=== PATIENT | female | born 1980 | race Caucasian/White ===

== ENCOUNTER 2017-03-03 01:33 | Emergency (ER) | payer OTHER ==
[2017-03-03 01:42] VITALS: RESP 18; TEMP 98
[2017-03-03] MEDS ORDERED: ONDANSETRON ODT 4 MG TAB PO STA (02:17)
[2017-03-03] MEDS ORDERED: ACETAMINOPHEN TAB 325 MG TAB PO STA (02:17)
--- NOTE | 2017-03-03 02:51 | CT ---
EXAM: CT Head Without Intravenous Contrast. CLINICAL HISTORY: Pain TECHNIQUE: Axial computed tomography images of the head/brain without intravenous contrast. CTDI is 57.4 mGy and DLP is 9 x 5.5 mGy-cm This CT exam was performed using one or more of the following dose reduction techniques: automated exposure control, adjustment of the mA and/or kV according to patient size, and/or use of iterative reconstruction technique. COMPARISON: Head CT dated 02/09/2016 FINDINGS: Brain: No acute infarct, hemorrhage, mass or edema. No significant white matter disease. Ventricles: Unremarkable. No ventriculomegaly. Bones/joints: Unremarkable. No acute fracture. Soft tissues: Unremarkable. Sinuses: Minimal mucosal thickening of the paranasal sinuses. Mastoid air cells: Unremarkable as visualized. No mastoid effusion. IMPRESSION: No acute findings. EXAM: CT Cervical Spine Without Intravenous Contrast. CLINICAL HISTORY: Pain TECHNIQUE: Axial computed tomography images of the cervical spine without intravenous contrast. CTDI is 29.5 mGy and DLP is 579.9 mGy-cm This CT exam was performed using one or more of the following dose reduction techniques: automated exposure control, adjustment of the mA and/or kV according to patient size, and/or use of iterative reconstruction technique. COMPARISON: No relevant prior studies available. FINDINGS: Vertebrae: Unremarkable. No acute fracture. Discs/spinal canal/neural foramina: No acute findings. No spinal canal stenosis. Soft tissues: Unremarkable. Lung apices: Unremarkable as visualized. IMPRESSION: Normal cervical spine CT.
--- NOTE | 2017-03-03 03:06 | CT ---
EXAM: CT Maxillofacial Without Intravenous Contrast. CLINICAL HISTORY: Pain TECHNIQUE: Axial computed tomography images of the face without intravenous contrast. CTDI is 32.1 mGy and DLP is 558 mGy-cm This CT exam was performed using one or more of the following dose reduction techniques: automated exposure control, adjustment of the mA and/or kV according to patient size, and/or use of iterative reconstruction technique. COMPARISON: No relevant prior studies available. FINDINGS: Bones/joints: No acute fracture. Soft tissues: Unremarkable. Orbits: Unremarkable. Sinuses: Mild mucosal thickening of the paranasal sinuses. No air- fluid levels. Dental: Edentulous. IMPRESSION: No acute findings.
--- NOTE | 2017-03-03 03:21 | ED ---
Head Injury HPI - General Chief complaint: Head Injury Stated complaint: fall-face injury Time Seen by Provider: 03/03/17 01:52 Source: patient, RN notes reviewed Mode of arrival: wheelchair Limitations: no limitations - History of Present Illness Initial comments: Patient is a 36-year-old female presents to the emergency room for evaluation of head injury. Patient states about an hour before arrival, she slipped on mud and hit the right side of her face against the corner of her garage. Patient states afterwards she was dizzy and fell down on the ground and hit the right side of her face again on the floor. Patient denies loss of consciousness. Patient denies any changes in vision. Patient states she is having right-sided facial pain that is radiating to her ear. Patient denies ringing in her ears. Patient denies numbness or tingling going down her extremities. Patient denies significant neck pain. Patient states she is still dizzy and feels nauseous. Patient denies any other injuries during incident. Patient denies taking blood thinners. - Related Data Home Medications Medication Instructions Recorded Confirmed Levothyroxine Sodium [Synthroid] 300 mcg PO DAILY 09/23/14 03/03/17 OXcarbazepine [Trileptal] 600 mg PO BID 01/08/15 03/03/17 Ibuprofen [Motrin] 800 mg PO Q8HR PRN 05/02/16 03/03/17 OXcarbazepine [Trileptal] 300 mg PO BID 05/02/16 03/03/17 lamoTRIgine [LaMICtal] 200 mg PO HS 05/02/16 03/03/17 ARIPiprazole [Abilify] 5 mg PO DAILY 03/03/17 03/03/17 Ferrous Sulfate [Feosol] 325 mg PO BID 03/03/17 03/03/17 Previous Rx's Medication Instructions Recorded Gabapentin [Neurontin] 800 mg PO TID #90 tablet 06/19/15 Sertraline [Zoloft] 100 mg PO BID tab 02/10/16 Ondansetron Odt [Zofran Odt] 4 mg PO Q8HR PRN #12 tab 03/03/17 Allergies/Adverse reactions: Allergies Allergy/AdvReac Type Severity Reaction Status Date / Time ciprofloxacin [From Cipro] Allergy Unknown Rash/Hives Verified 03/03/17 01:42 ciprofloxacin HCl Allergy Unknown Rash/Hives Verified 03/03/17 01:42 [From Cipro] morphine Allergy Unknown Anaphylaxis Verified 03/03/17 01:42 nitrofurantoin Allergy Unknown Rash/Hives Verified 03/03/17 01:42 [From Macrobid] nitrofurantoin Allergy Unknown Rash/Hives Verified 03/03/17 01:42 macrocrystalline [From Macrobid] sulfamethoxazole Allergy Unknown Rash/Hives Verified 03/03/17 01:42 [From Bactrim] trimethoprim [From Bactrim] Allergy Unknown Rash/Hives Verified 03/03/17 01:42 adhesive Allergy Rash/Hives Verified 03/03/17 01:42 adhesive tape Allergy Rash/Hives Verified 03/03/17 01:42 PAPER TAPE Allergy PEELS Uncoded 03/03/17 01:42 SKIN,RASH STERI STRIPS Allergy RASH, Uncoded 03/03/17 01:42 PEELS SKIN Review of Systems ROS Statement: Those systems with pertinent positive or pertinent negative responses have been documented in the HPI. ROS Other: All systems not noted in ROS Statement are negative. Past Medical History Past Medical History: Fibromyalgia, Osteoarthritis (OA), Seizure Disorder, Thyroid Disorder Additional Past Medical History / Comment(s): Seizures, DDD lumbar, heniated discs lumbar and cervical, fibromyalgia, IBS, hypothryoidism, migraines, Fx knee 09/2015-healed with brace, L foot fractured a total of 5 times-had surgery with screws placed. 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 Past Anesthesia/Blood Transfusion Reactions: No Reported Reaction Past Psychological History: Bipolar Additional Psychological History / Comment(s): Pt states she is on medications that work well for her hx of bipolar. She resides with her 2 daughters ages 2 and 15. She is independent. She drives. Smoking Status: Current every day smoker Past Alcohol Use History: None Reported Additional Past Alcohol Use History / Comment(s): SMOKES 3-4 CIGARETTES PER DAY. STARTED SMOKING 2005 Past Drug Use History: None Reported - Past Family History Father Additional Family Medical History / Comment(s): Father is about 53 yrs old and has back problems. Mother Family Medical History: Diabetes Mellitus Additional Family Medical History / Comment(s): Mother is about 53 yrs old General Exam - General Exam Comments Initial Comments: Sitting in exam room, no acute distress. Limitations: no limitations General appearance: alert, in no apparent distress Head exam: Present: atraumatic, normocephalic, normal inspection Eye exam: Present: normal appearance, PERRL, EOMI, other (Tenderness on palpating the right inferior orbit. No swelling or ecchymosis noted.) Pupils: Present: normal accommodation ENT exam: Present: normal exam, mucous membranes moist, TM's normal bilaterally Neck exam: Present: normal inspection, full ROM. Absent: tenderness, lymphadenopathy Respiratory exam: Present: normal lung sounds bilaterally. Absent: respiratory distress Cardiovascular Exam: Present: regular rate, normal rhythm, normal heart sounds Extremities exam: Present: normal inspection Back exam: Present: normal inspection Neurological exam: Present: alert, oriented X3, CN II-XII intact, normal gait Expanded Patient oriented to: Present: person, place, time Speech: Present: fluid speech Cranial nerves: EOM's Intact: Normal, Facial Sensation: Normal Sensory exam: Upper Extremity Light Touch: Normal, Lower Extremity Light Touch: Normal Motor strength exam: RUE: 5, LUE: 5, RLE: 5, LLE: 5 Psychiatric exam: Present: normal affect, normal mood Skin exam: Present: warm, dry, intact, normal color. Absent: rash Course Vital Signs 03/03/17 01:39 Temperature 98.0 F Pulse Rate 85 Respiratory 18 Rate Blood Pressure 128/82 O2 Sat by Pulse 99 Oximetry Medical Decision Making - Medical Decision Making Patient is a 36-year-old female presents emergency room for evaluation of head and facial trauma. Patient has no neuro deficits. Brain and C-spine CT shows no acute findings. Facial CT shows no acute fractures. Patient states she is feeling better after given Zofran. Advised patient to take Tylenol or Motrin as needed for headache at home. Advised patient to follow up with primary care provider in 24-48 hours for reevaluation. Patient's friend states he is going to stay with patient overnight. Patient states she understands everything that was discussed with her. Return parameters discussed. Case discussed with Dr. Constantino. - Radiology Data Radiology results: report reviewed, image reviewed Disposition Clinical Impression: Closed head injury Disposition: HOME SELF-CARE Condition: Good Instructions: Head Injury (ED) Additional Instructions: Take Zofran as needed for nausea. Take Tylenol or Motrin as needed for headache. Please follow-up with primary care provider in 24-48 hours for reevaluation. If any new symptom arises or symptoms worsen, return to ER as soon as possible. Prescriptions: Ondansetron Odt [Zofran Odt] 4 mg PO Q8HR PRN #12 tab PRN Reason: Nausea Referrals: Jason Marrufo DO [Primary Care Provider] - 1-2 days Time of Disposition: 03:19
[2017-03-03 04:26] VITALS: BP 121/73; PULSE 78
== END 2017-03-03 03:28 | disposition home or self-care (01) ==
LOC: EC 01:33
DX: S09.90XA Unspecified injury of head, initial encounter (principal); R11.0 Nausea; H92.09 Otalgia, unspecified ear; E07.9 Disorder of thyroid, unspecified; G40.909 Epilepsy, unspecified, not intractable, without status epilepticus; F31.9 Bipolar disorder, unspecified; F17.210 Nicotine dependence, cigarettes, uncomplicated; Z79.899 Other long term (current) drug therapy; Z88.1 Allergy status to other antibiotic agents; Z88.5 Allergy status to narcotic agent; Z88.8 Allergy status to other drugs, medicaments and biological substances; Z91.09 Other allergy status, other than to drugs and biological substances; W01.198A Fall on same level from slipping, tripping and stumbling with subsequent striking against other object, initial encounter; Y92.89 Other specified places as the place of occurrence of the external cause
CPT/HCPCS: 70450; 70486; 72125; 99283

== ENCOUNTER 2017-03-27 20:31 | Observation (INO) | payer OTHER ==
[2017-03-27] MEDS ORDERED: SODIUM CHLORIDE 0.9% 1,000 ML IV STA (21:07)
[2017-03-27 21:30] LABS: Basophils # (A) 0.1 k/uL (0-0.2); Basophils % (A) 1 %; CH 32.6; Eosinophils # (A) 0.1 k/uL (0-0.7); Eosinophils % (A) 3 %; HCT 44.6 % (34.0-46.0); HDW 2.25; HGB 14.4 gm/dL (11.4-16.0); Luc % (Auto) 2; Lymphocytes # (A) 1.8 k/uL (1.0-4.8); Lymphocytes % (A) 38 %; MCHC 32.2 g/dL (31.0-37.0); MCV 99.4 fL (80.0-100.0); Mean Platelet Volume 9.7; Monocytes # (A) 0.2 k/uL (0-1.0); Monocytes % (A) 4 %; Neutrophils # (A) 2.5 k/uL (1.3-7.7); Neutrophils % (A) 53 %; RBC 4.49 m/uL (3.80-5.40); RDW 13.8 % (11.5-15.5); WBC 4.7 k/uL (3.8-10.6); WBC (Perox) 4.92
--- NOTE | 2017-03-27 21:33 | ED ---
Seizure HPI - General Chief Complaint: Seizure Stated Complaint: seizure x 3 today Time Seen by Provider: 03/27/17 20:42 Source: patient, RN notes reviewed, old records reviewed Mode of arrival: wheelchair Limitations: no limitations - History of Present Illness Initial Comments: This is a 36-year-old female with a history of seizure stating that she's had approximately 7 seizures in the past 2 days. She states that she is currently managed on Trileptal and Lamictal. Patient reports that she takes her medication regularly. She gets these medications from her primary care provider. She does not see a neurologist at this time. Patient states that each seizure lasted approximately 1-3 minutes. While in the waiting room patient had a possible seizure and was brought back to treatment room and once. Patient does not appear postictal at this time. Patient reports that over the past few days she's had a viral upper respiratory syndrome. She denies any other associated symptoms like chest pain shortness breath, nausea or vomiting or abdominal pain. - Related Data Home Medications Medication Instructions Recorded Confirmed Levothyroxine Sodium [Synthroid] 300 mcg PO DAILY 09/23/14 03/27/17 Ibuprofen [Motrin] 800 mg PO Q8HR PRN 05/02/16 03/27/17 OXcarbazepine [Trileptal] 900 mg PO BID 05/02/16 03/27/17 Ferrous Sulfate [Feosol] 325 mg PO BID 03/03/17 03/27/17 ARIPiprazole [Abilify] 5 mg PO HS 03/27/17 03/27/17 HYDROcodone/APAP 10-325MG [[place] 1 tab PO Q6H PRN 03/27/17 03/27/17 10-325] lamoTRIgine [LaMICtal] 200 mg PO HS 03/27/17 03/27/17 Previous Rx's Medication Instructions Recorded Gabapentin [Neurontin] 800 mg PO TID #90 tablet 06/19/15 Sertraline [Zoloft] 100 mg PO BID tab 02/10/16 Allergies Allergy/AdvReac Type Severity Reaction Status Date / Time ciprofloxacin [From Cipro] Allergy Unknown Rash/Hives Verified 03/27/17 22:17 morphine Allergy Unknown Anaphylaxis Verified 03/27/17 22:17 nitrofurantoin Allergy Unknown Rash/Hives Verified 03/27/17 22:17 [From Macrobid] nitrofurantoin Allergy Unknown Rash/Hives Verified 03/27/17 22:17 macrocrystalline [From Macrobid] sulfamethoxazole Allergy Unknown Rash/Hives Verified 03/27/17 22:17 [From Bactrim] trimethoprim [From Bactrim] Allergy Unknown Rash/Hives Verified 03/27/17 22:17 adhesive tape Allergy Rash/Hives Verified 03/27/17 22:17 PAPER TAPE Allergy PEELS Uncoded 03/27/17 20:39 SKIN,RASH STERI STRIPS Allergy RASH, Uncoded 03/27/17 20:39 PEELS SKIN Review of Systems ROS Statement: Those systems with pertinent positive or pertinent negative responses have been documented in the HPI. ROS Other: All systems not noted in ROS Statement are negative. Past Medical History Past Medical History: Fibromyalgia, Osteoarthritis (OA), Seizure Disorder, Thyroid Disorder Additional Past Medical History / Comment(s): Seizures, DDD lumbar, heniated discs lumbar and cervical, fibromyalgia, IBS, hypothryoidism, migraines, Fx knee 09/2015-healed with brace, L foot fractured a total of 5 times-had surgery with screws placed. 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 Past Anesthesia/Blood Transfusion Reactions: No Reported Reaction Past Psychological History: Bipolar Additional Psychological History / Comment(s): Pt states she is on medications that work well for her hx of bipolar. She resides with her 2 daughters ages 2 and 15. She is independent. She drives. Smoking Status: Current every day smoker Past Alcohol Use History: None Reported Additional Past Alcohol Use History / Comment(s): SMOKES 3-4 CIGARETTES PER DAY. STARTED SMOKING 2005 Past Drug Use History: None Reported - Past Family History Father Additional Family Medical History / Comment(s): Father is about 53 yrs old and has back problems. Mother Family Medical History: Diabetes Mellitus Additional Family Medical History / Comment(s): Mother is about 53 yrs old General Exam - General Exam Comments Initial Comments: This is a pleasant 36-year-old female. Patient does not appear to be in any significant distress. Patient does not appear postictal. Limitations: no limitations General appearance: alert, in no apparent distress Head exam: Present: atraumatic, normocephalic, normal inspection Eye exam: Present: normal appearance, PERRL, EOMI. Absent: scleral icterus, conjunctival injection, periorbital swelling ENT exam: Present: normal exam, mucous membranes moist Neck exam: Present: normal inspection. Absent: tenderness, meningismus, lymphadenopathy Respiratory exam: Present: normal lung sounds bilaterally. Absent: respiratory distress, wheezes, rales, rhonchi, stridor Cardiovascular Exam: Present: regular rate, normal rhythm, normal heart sounds. Absent: systolic murmur, diastolic murmur, rubs, gallop, clicks GI/Abdominal exam: Present: soft, normal bowel sounds. Absent: distended, tenderness, guarding, rebound, rigid Extremities exam: Present: normal inspection, full ROM, normal capillary refill. Absent: tenderness, pedal edema, joint swelling, calf tenderness Back exam: Present: normal inspection Neurological exam: Present: alert, oriented X3, CN II-XII intact Expanded Patient oriented to: Present: person, place Speech: Present: fluid speech Cranial nerves: EOM's Intact: Normal, Gag Reflex: Normal, Tongue Deviation: Normal Cerebellar function: Finger to Nose: Normal Upper motor neuron: Pronator Drift: Normal Motor strength exam: RUE: 5, LUE: 5, RLE: 5, LLE: 5 Eye Response: (4) open spontaneously Motor Response: (6) obeys commands Verbal Response: (5) oriented Tanvi Total: 15 Psychiatric exam: Present: normal affect, normal mood Skin exam: Present: warm, dry, intact, normal color. Absent: rash Course Vital Signs 03/27/17 03/27/17 03/28/17 20:36 22:55 00:26 Temperature 98.1 F 98.7 F 98.0 F Pulse Rate 74 65 88 Respiratory 18 16 18 Rate Blood Pressure 128/76 99/65 100/69 O2 Sat by Pulse 100 98 98 Oximetry Medical Decision Making - Medical Decision Making This is a 36-year-old female with a history of seizure stating that she's had approximately 7 seizures in the past 2 days. She states that she is currently managed on Trileptal and Lamictal. Patient reports that she takes her medication regularly. She gets these medications from her primary care provider. She does not see a neurologist at this time. Patient states that each seizure lasted approximately 1-3 minutes. While in the waiting room patient had a possible seizure and was brought back to treatment room and once. Patient does not appear postictal at this time. Patient reports that over the past few days she's had a viral upper respiratory syndrome. Lsb work reviewed, no abnormalities. CT brain and CXR are negatve. EKG was normal. Discussed results with patient and family. Patient concerned with possibly having another seizure. Discussed that she can be admitted for observation status and seizure precautions and consult neurology. Jono agrees to treatement plan and admission. - Lab Data Result diagrams: 03/27/17 20:47 03/27/17 20:47 Lab Results 03/27/17 03/27/17 Range/Units 20:47 20:47 WBC 4.7 (3.8-10.6) k/uL RBC 4.49 (3.80-5.40) m/uL Hgb 14.4 (11.4-16.0) gm/dL Hct 44.6 (34.0-46.0) % MCV 99.4 (80.0-100.0) fL MCH 32.0 (25.0-35.0) pg MCHC 32.2 (31.0-37.0) g/dL RDW 13.8 (11.5-15.5) % Plt Count 128 L (150-450) k/uL Neutrophils % 53 % Lymphocytes % 38 % Monocytes % 4 % Eosinophils % 3 % Basophils % 1 % Neutrophils # 2.5 (1.3-7.7) k/uL Lymphocytes # 1.8 (1.0-4.8) k/uL Monocytes # 0.2 (0-1.0) k/uL Eosinophils # 0.1 (0-0.7) k/uL Basophils # 0.1 (0-0.2) k/uL Sodium 131 L (137-145) mmol/L Potassium 3.4 L (3.5-5.1) mmol/L Chloride 98 (98-107) mmol/L Carbon Dioxide 23 (22-30) mmol/L Anion Gap 10 mmol/L BUN 7 (7-17) mg/dL Creatinine 0.56 (0.52-1.04) mg/dL Est GFR (MDRD) Af Amer >60 (>60 ml/min/1.73 sqM) Est GFR (MDRD) Non-Af >60 (>60 ml/min/1.73 sqM) Glucose 136 H (74-99) mg/dL Calcium 8.9 (8.4-10.2) mg/dL Total Bilirubin 0.5 (0.2-1.3) mg/dL AST 27 (14-36) U/L ALT 27 (9-52) U/L Alkaline Phosphatase 74 (38-126) U/L Total Protein 6.6 (6.3-8.2) g/dL Albumin 3.9 (3.5-5.0) g/dL Serum Alcohol <10 mg/dL 03/27/17 23:08 EKG normal sinus rhythm. EKG suggested on this specific T wave abnormality. Ventricularly of 84 bpm. : Preform ulcers. Care is duration 903 QT QTC 360/47 ms. No evidence of ST elevation or T-wave inversion. - Radiology Data Radiology results: report reviewed CT brain is negative for any acute process. CXR negative. Disposition Clinical Impression: Seizure, Recurrent seizures Disposition: ADMITTED IP TO THIS [facility] Condition: Stable
[2017-03-27 21:40] LABS: ALT 27 U/L (9-52); AST 27 U/L (14-36); Alcohol <10 mg/dL; Alkaline Phosphatase 74 U/L (38-126); Anion Gap 10 mmol/L; Blood Urea Nitrogen 7 mg/dL (7-17); Calcium 8.9 mg/dL (8.4-10.2); Carbon Dioxide 23 mmol/L (22-30); Chloride 98 mmol/L (98-107); Glucose 136 mg/dL (74-99); Non-African American GFR(MDRD) >60 (>60 ml/min/1.73 sqM); Potassium 3.4 mmol/L (3.5-5.1); Sodium 131 mmol/L (137-145); Total Bilirubin 0.5 mg/dL (0.2-1.3); Total Protein 6.6 g/dL (6.3-8.2)
--- NOTE | 2017-03-27 22:56 | CT ---
EXAM: CT Head Without Intravenous Contrast CLINICAL HISTORY: Reason: seizure activity TECHNIQUE: Axial computed tomography images of the head/brain without intravenous contrast. Coronal and sagittal reformats were obtained. CTDI is 60.30 MGy and DLP is 1090.40 MGy-cm. This CT exam was performed using one or more of the following dose reduction techniques: automated exposure control, adjustment of the mA and/or kV according to patient size, and/or use of iterative reconstruction technique. COMPARISON: CT head 03/03/17 images without report FINDINGS: Brain: Unremarkable. No hemorrhage. No edema. Ventricles: Unremarkable. No ventriculomegaly. Bones/joints: Unremarkable. No acute fracture. Sinuses: Unremarkable as visualized. No acute sinusitis. Mastoid air cells: Unremarkable as visualized. No mastoid effusion. IMPRESSION: No acute intracranial process.
[2017-03-27] MEDS ORDERED: HYDROcodone/APAP 5-325MG 1 EACH TAB PO PRN (23:17)
[2017-03-27] MEDS ORDERED: ONDANSETRON 4 MG/2 ML VIAL IVP PRN (23:17)
[2017-03-27] MEDS ORDERED: NALOXONE 0.4 MG/ML 1 ML VIAL IV PRN (23:17)
[2017-03-27] MEDS ORDERED: IBUPROFEN 800 MG TAB PO PRN (23:21)
[2017-03-28 00:59] VITALS: BMI 39.4
[2017-03-28] MEDS: ARIPiprazole 5 MG TAB PO SCH ×2 (01:28→21:30)
[2017-03-28] MEDS: OXcarbazepine 300 MG TAB PO SCH ×3 (01:29→21:30)
[2017-03-28] MEDS: SERTRALINE 100 MG TAB PO SCH ×3 (01:29→21:29)
[2017-03-28] MEDS: SODIUM CHLORIDE 0.9% 1,000 ML IV SCH ×2 (01:29→13:02)
[2017-03-28 01:49] LABS: Appearance,Urine Clear (Clear); Bilirubin,Urine Negative (Negative); Glucose,Urine (UA) Negative (Negative); Ketones,Urine Negative (Negative); Leukocyte Esterase,Urine Negative (Negative); Nitrite,Urine Negative (Negative); Protein,Urine Negative (Negative); Specific Gravity,Urine 1.007 (1.001-1.035); UA Billing (MACRO vs. MICRO) CHEM; Urobilinogen,Urine <2.0 mg/dL (<2.0)
[2017-03-28] MEDS: LORazepam 0.5 MG TAB PO PRN ×3 (02:27→18:44)
[2017-03-28] MEDS ORDERED: LORazepam 2 MG/ML SYRINGE IV PRN (02:41)
[2017-03-28] MEDS: LEVOTHYROXINE 100 MCG TAB PO SCH (05:47)
[2017-03-28] MEDS: lamoTRIgine 25 MG TAB PO SCH ×2 (08:22→08:24)
[2017-03-28] MEDS: GABAPENTIN 400 MG CAP PO SCH ×3 (08:22→21:29)
[2017-03-28] MEDS: FERROUS SULFATE 325 MG TAB PO SCH ×2 (08:22→21:30)
[2017-03-28] MEDS: HYDROcodone/APAP 10-325MG 1 EACH TAB PO PRN ×3 (08:23→21:30)
[2017-03-28] MEDS ORDERED: SERTRALINE 100 MG TAB PO SCH (09:00)
[2017-03-28] MEDS ORDERED: PANTOPRAZOLE 40 MG/10 ML VIAL IV SCH (09:00)
[2017-03-28] MEDS ORDERED: OXcarbazepine 300 MG TAB PO SCH (09:00)
[2017-03-28] MEDS ORDERED: METOCLOPRAMIDE 5 MG/ML 2 ML VIAL IVP PRN (12:45)
[2017-03-28] MEDS: NICOTINE 21MG/24HR PATCH TRANSDERM SCH (13:02)
--- NOTE | 2017-03-28 13:34 | HP ---
DATE OF ADMISSION: DATE OF SERVICE: 03/28/2017 CHIEF COMPLAINT: Seizure disorder, generalized tonic clonic. HISTORY OF PRESENT ILLNESS: This 36-year-old woman with past medical history of epilepsy, history of fibromyalgia, history of DJD, history of hypothyroidism, history of irritable bowel syndrome, hypothyroidism, bariatric surgery being followed Dr. Marrufo in the outpatient setting. Also had breakthrough seizures previously. Yesterday, the patient approximately 7 seizures in the last couple of days and generalized tonic-clonic seizure. Currently, the patient is on Trileptal and Lamictal and because of increase in seizures the patient came to [facility] and admitted for further evaluation and treatment. There is no history of any fever, rigors. No history headache, loss of consciousness. PAST MEDICAL HISTORY: History of fibromyalgia, DJD, seizure disorder, hypothyroidism, bariatric surgery. Home medications are: 1. Lamictal 200 mg p.o. q.h.s. 2. Zoloft 100 mg p.o. b.i.d. 3. Trileptal 900 mg p.o. b.i.d. 4. Synthroid 300 mcg p.o. daily. 5. Motrin 800 mg q.8 p.r.n. 6. [place] 10 mg q.6 p.r.n. 7. Neurontin 800 mg t.i.d. 8. Iron sulfate 325 mg p.o. b.i.d. 9. Abilify 5 mg p.o. q.h.s. Allergies are CIPRO, MORPHINE, NITROFURANTOIN, BACTRIM, ADHESIVE TAPES, PAPER TAPE and STERI-STRIPS. FAMILY HISTORY: History of diabetes mellitus in the family. SOCIAL HISTORY: History of smoking on a regular basis. REVIEW OF SYSTEMS: ENT: No diminished hearing or diminished vision. CARDIOVASCULAR: No angina or palpitations. RESPIRATORY: No cough, no hemoptysis. GI: No nausea, vomiting. : No dysuria. NERVOUS SYSTEM: As mentioned earlier. ALLERGY/IMMUNOLOGY: No asthma or hayfever. MUSCULOSKELETAL: As mentioned earlier. HEMATOLOGY/ONCOLOGY: No history of anemia. ENDOCRINE: No history of diabetes mellitus. CONSTITUTIONAL: As mentioned earlier. DERMATOLOGY: Negative. RHEUMATOLOGY: Negative. PSYCHIATRY: As mentioned earlier. The patient also reports multiple social stressors also. PHYSICAL EXAM: The patient is alert and oriented x3. Pulse is 96, blood pressure 101/59, respirations 16, temperature 98.2, pulse ox 98% on room air. HEENT: Conjunctivae normal. NECK: No jugular venous distention. CARDIOVASCULAR: S1 and S2, muffled. RESPIRATORY: Breath sounds diminished at the bases. No rhonchi, no crackles. ABDOMEN: Soft, nontender. No mass palpable. No hepatosplenomegaly. LEGS: No edema, no swelling. NERVOUS SYSTEM: Higher function as mentioned earlier. Cranial nerves are grossly intact. Eye movements are normal. No nystagmus. No diplopia. Moves all 4 limbs. No focal motor or sensory deficits. No ( ) dysfunction. LYMPHATICS: No lymphadenopathy of neck, axillae or groin. SKIN: No ulcers, rashes or bleeding. LABS: Platelets 128. Sodium 131, potassium 3.4. Glucose 136. Drug screen is positive for opiate and oxycodone. ASSESSMENT: 1. Generalized tonic-clonic seizures, breakthrough seizures. 2. Hyponatremia. 3. Hypokalemia. 4. Increased random blood sugar. 5. Thrombocytopenia of undetermined etiology. 6. Fibromyalgia. 7. History of degenerative joint disease. 8. History of hypothyroidism. 9. History of irritable bowel syndrome. 10. History of migraines. 11. History of bariatric surgery. 12. History of cholecystectomy. 13. History of bipolar. 14. History of ongoing nicotine dependence. RECOMMENDATIONS AND DISCUSSION: This 36-year-old woman who presented with multiple complex medical issues, will monitor the patient closely. Continue the current medications. Continue with symptomatic treatment. Brain CAT scan was done at time of admission, which showed no acute abnormality. Currently the patient is started on Lamictal and Neurontin and as well as Trileptal. We will follow the patient closely. Neuro check. Complete neurovascular workup and evaluation by Dr. Olson, EEG. Continue the rest of the medications. Repeat labs. Guarded prognosis because of multiple complex medical issues. Further recommendations to follow. A copy of dictation forwarded to Dr. Jason Marrufo who is the primary physician. [facility] CENTERLindsey
[2017-03-28 15:47] LABS: Anion Gap 9 mmol/L; Blood Urea Nitrogen 7 mg/dL (7-17); Calcium 8.6 mg/dL (8.4-10.2); Carbon Dioxide 20 mmol/L (22-30); Chloride 106 mmol/L (98-107); Glucose 130 mg/dL (74-99); Non-African American GFR(MDRD) >60 (>60 ml/min/1.73 sqM); Potassium 3.7 mmol/L (3.5-5.1); Sodium 135 mmol/L (137-145)
[2017-03-28] MEDS ORDERED: ARIPiprazole 5 MG TAB PO SCH (21:00)
[2017-03-28] MEDS ORDERED: lamoTRIgine 100 MG TAB PO SCH (21:00)
[2017-03-28] MEDS: HEPARIN SODIUM,PORCINE 5,000 UNIT/ML 1 ML VIAL SQ SCH (21:45)
[2017-03-28 23:24] VITALS: TEMP 98.1
[2017-03-29] MEDS: SODIUM CHLORIDE 0.9% 1,000 ML IV SCH ×2 (03:40→07:54)
[2017-03-29] MEDS: HYDROcodone/APAP 10-325MG 1 EACH TAB PO PRN ×2 (05:28→12:37)
[2017-03-29] MEDS: LEVOTHYROXINE 100 MCG TAB PO SCH (05:28)
[2017-03-29] MEDS ORDERED: PANTOPRAZOLE 40 MG TABLET PO SCH (07:30)
[2017-03-29] MEDS: NICOTINE 21MG/24HR PATCH TRANSDERM SCH (07:55)
[2017-03-29] MEDS: lamoTRIgine 25 MG TAB PO SCH (07:55)
[2017-03-29] MEDS: HEPARIN SODIUM,PORCINE 5,000 UNIT/ML 1 ML VIAL SQ SCH (07:55)
[2017-03-29] MEDS: OXcarbazepine 300 MG TAB PO SCH (07:55)
[2017-03-29] MEDS: SERTRALINE 100 MG TAB PO SCH (07:56)
[2017-03-29] MEDS: GABAPENTIN 400 MG CAP PO SCH (07:56)
[2017-03-29] MEDS: FERROUS SULFATE 325 MG TAB PO SCH (07:56)
[2017-03-29] MEDS: LORazepam 0.5 MG TAB PO PRN (08:02)
[2017-03-29 08:23] VITALS: BP 120/78; PULSE 64; RESP 18
--- NOTE | 2017-03-29 09:16 | CONS ---
DATE OF CONSULTATION: 03/28/2017 CHIEF COMPLAINT: Uncontrolled seizures. HISTORY OF PRESENT ILLNESS: Mrs. Gonzalez is a 36-year-old female who is being evaluated by the neurology service per the request of Dr. Gomez for uncontrolled seizures. The patient has a long-standing history of seizure disorder and is on Trileptal and Lamictal at home. She denies missing any doses. Her seizures had been well controlled for over one year. She was brought into [facility] Emergency Room after she had approximately 7 seizures over the past 48 hours with her seventh one occurring in the emergency room waiting room according to her significant other. The patient denies missing any of her doses. Her seizures were described as generalized tonic-clonic seizure lasting 30 to 60 seconds each and followed by postictal drowsiness and confusion. She did not have any tongue biting or any sphincter incontinence. In the emergency room, a CT scan of the brain was done, which was normal. Her CBC was normal except for mild thrombocytopenia at 128,000. Her comprehensive metabolic profile showed mild hyponatremia at 131 and mild hypokalemia at 3.4. Her urinalysis was normal. Her urine drug screen was positive for opiates and oxycodone. The patient is known to be on [place] for chronic low back pain, but when asked about the oxycodone, she states that she recently got a left knee replacement surgery and was placed on Percocet. She continued to take her [place] along with the Percocet. On this admission, she has been started on [place] 5 mg every 4 hours p.r.n. and [place] 10 mg every 6 hours p.r.n. Since her admission, she has not had any further seizures and she has been restarted on her Trileptal and Lamictal at her home doses. She takes Lamictal 50 mg in the morning and 200 mg at bedtime. Her Trileptal dose is 900 mg twice daily. At the time of my evaluation, she is sitting up in her bed and appears to be in no acute distress. She denies any headache or any lateralizing numbness or weakness. She does complain of low back pain, which is chronic for her. PAST MEDICAL HISTORY: Seizure disorder, fibromyalgia, chronic lumbago, degenerative joint disease, hypothyroidism, history of bariatric surgery, depression. SOCIAL HISTORY: She does smoke cigarettes daily. She denies any alcohol or drug use. FAMILY HISTORY: Positive for diabetes. HOME MEDICATIONS: Reviewed in the chart. ALLERGIES: CIPRO, MORPHINE, NITROFURANTOIN, BACTRIM, ADHESIVE TAPE, STERI-STRIPS, PAPER TAPE, SULFA DRUGS. REVIEW OF SYSTEMS: CONSTITUTIONAL: Positive for fatigue. EYES: Negative. ENT: Negative. CARDIOVASCULAR: Negative. RESPIRATORY: Negative. NEUROLOGICAL: As mentioned above. GASTROINTESTINAL: Negative. GENITOURINARY: Negative. PSYCHIATRIC: Positive for history of depression. MUSCULOSKELETAL: As mentioned above. DERMATOLOGICAL: Negative. ENDOCRINE: Positive for hypothyroidism. PHYSICAL EXAM: Vital signs show a temperature of 98.4, ( ), blood pressure 110/60. GENERAL APPEARANCE: The patient is a mildly obese female who appears to be in no acute distress. HEENT: Normocephalic, atraumatic, no facial asymmetry is seen. Neck is supple with no masses felt. CARDIOVASCULAR: Regular rate and rhythm. ABDOMEN: Nontender, nondistended. Extremities showed no edema or clubbing. NEUROLOGICAL EXAM: The patient is alert, aware, and oriented x3. Speech and language are normal. Strength is full in all 4 extremities. Sensory exam was normal to light touch in all 4 extremities. No pronator drift is seen. No tremors or seizure-like activity is noticed. No facial asymmetry is noticed on cranial nerve testing. IMPRESSION: 1. Uncontrolled seizures, generalized tonic-clonic type. 2. Chronic lumbago. 3. Hyponatremia. 4. History of narcotic use. RECOMMENDATIONS: The patient does have history of seizure disorder and her seizures were well controlled prior to this breakthrough event. Prior to this, she has not had any seizure-like activity for over one year. In reviewing her chart, she has been taking both oxycodone and hydrocodone on a daily basis. This along with her mild hyponatremia may have triggered her breakthrough seizures. The patient was advised to discontinue Percocet at home. It is unclear why on this admission she is receiving both [place] 5 mg and 10 mg. I will discontinue the 5 mg dose and she may continue on [place] 10 mg every 6 hours as needed for severe low back pain only. I did review her EEG, which was normal. Continue Lamictal at her current home dose and Trileptal at the current home dose. Continue IV hydration for her mild hyponatremia. She is on Trileptal that can cause hyponatremia but this is mild at this time and I do not recommend switching medications as she has been doing quite well on these doses. The patient was told that she is not to drive or operate any heavy machinery for a period of 6 months of being seizure-free. Continue neuro checks and seizure precautions. I will continue to follow with you. Further recommendations to follow. Thank you for allowing me to participate in the care of your patient. If you have any questions, please feel free to contact me.
[2017-03-29 09:27] LABS: Basophils % (A) 1 %; CH 32.4; CHCM 32.5; Eosinophils # (A) 0.2 k/uL (0-0.7); Eosinophils % (A) 5 %; HCT 40.6 % (34.0-46.0); HDW 2.23; HGB 12.9 gm/dL (11.4-16.0); Luc # (Auto) 0.12; Luc % (Auto) 3; Lymphocytes # (A) 1.4 k/uL (1.0-4.8); Lymphocytes % (A) 37 %; MCHC 31.9 g/dL (31.0-37.0); MCV 100.3 fL (80.0-100.0); Mean Platelet Volume 9.5; Monocytes # (A) 0.2 k/uL (0-1.0); Monocytes % (A) 6 %; Neutrophils # (A) 1.9 k/uL (1.3-7.7); Neutrophils % (A) 49 %; RBC 4.04 m/uL (3.80-5.40); RDW 13.6 % (11.5-15.5); WBC 3.8 k/uL (3.8-10.6); WBC (Perox) 4.13
[2017-03-29 09:55] LABS: Anion Gap 8 mmol/L; Blood Urea Nitrogen 5 mg/dL (7-17); Calcium 8.6 mg/dL (8.4-10.2); Carbon Dioxide 20 mmol/L (22-30); Chloride 104 mmol/L (98-107); Glucose 111 mg/dL (74-99); Non-African American GFR(MDRD) >60 (>60 ml/min/1.73 sqM); Potassium 3.5 mmol/L (3.5-5.1); Sodium 132 mmol/L (137-145)
--- NOTE | 2017-03-29 11:27 | EEG ---
DATE OF SERVICE: 03/28/2017 REASON FOR TESTING: Seizure. AGE: 36Y CURRENT ANTIEPILEPTIC MEDICATIONS: Trileptal, Neurontin and Lamictal. DESCRIPTION OF THE PROCEDURE: This EEG was performed using a 21-channel digital electroencephalograph, following the international 10 to 20 system. DESCRIPTION OF THE RECORDING: From the beginning of the tracing, and with the patient's eyes closed, the background rhythm was mostly consisting of 7 Hz theta frequency in the posterior occipital leads. No obvious asymmetry is seen. Photic stimulation was performed with a minimal driving response seen. No pathological waves were elicited. Frequent movement artifacts are seen. The patient remains awake throughout the tracing. No epileptiform discharges were seen. Her EKG lead showed a regular rate and rhythm. INTERPRETATION: This awake EEG is abnormal due to the presence of generalized slowing of the background rhythm, mostly in the theta range. This is consistent with mild encephalopathy. No epileptiform discharges were seen. The absence of epileptiform discharges does not rule out the diagnosis of epilepsy, therefore, clinical correlation is recommended.
--- NOTE | 2017-03-29 20:55 | DS ---
DATE OF ADMISSION: 03/27/2017 DATE OF DISCHARGE: 03/29/2017 Patient is a 36-year-old admitted secondary to seizures. Patient work-up is all negative, including EEG, which was negative. Patient was evaluated by Dr. Olson who will see the patient in about a week and recommended they added a dose of Lamictal 25 mg during the day time and patient is cleared for discharge. Patient has fibromyalgia and patient also has anxiety disorder because of which she is requesting Ativan. Ten pills of Ativan will be given on an as-needed basis for anxiety. Patient is already on antidepressants. Patient was seen and examined on the day of discharge. PHYSICAL EXAMINATION: GENERAL: The patient is alert and oriented x3, not in any acute distress. Well developed, well nourished. HEENT: Pupils are round and equally reacting to light. EOMI. No scleral icterus. No conjunctival pallor. Normocephalic, atraumatic. No pharyngeal erythema. No thyromegaly. CARDIOVASCULAR: S1 and S2 present. No murmurs, rubs, or gallops. PULMONARY: Chest is clear to auscultation, no wheezing or crackles. ABDOMEN: Soft, nontender, nondistended, normoactive bowel sounds. No palpable organomegaly. MUSCULOSKELETAL: No joint swelling or deformity. EXTREMITIES: No cyanosis, clubbing, or pedal edema. NEUROLOGICAL: Gross neurological examination did not reveal any focal deficits. SKIN: No rashes. FINAL DIAGNOSES: 1. Tonic-clonic seizures, breakthrough seizures versus pseudoseizures. 2. Mild hyponatremia; unsure of the etiology of hyponatremia basic metabolic profile needs to be repeated again as an outpatient. 3. Hyponatremia did improve temporarily transiently with IV hydration. If it does not improve next time, patient needs to be evaluated for syndrome of inappropriate antidiuretic hormone and patient is on some medications that can cause syndrome of inappropriate antidiuretic hormone. 4. Fibromyalgia. 5. Hypothyroidism. 6. Depression and anxiety disorder. Patient will be discharged today. Please refer to my depart summary for details of discharge medications. Activity as tolerated. Regular diet and follow up with Dr. Jason Marrufo in one week and Dr. Nichole Olson in about a week.
== END 2017-03-29 12:49 | disposition home or self-care (01) ==
LOC: EC 20:31 → 5MS5E 23:21 → INTOOBSV 23:21
PROVIDERS: ADMIT Hospitalist; ATTEND Hospitalist
DX: G40.409 Other generalized epilepsy and epileptic syndromes, not intractable, without status epilepticus (principal); D69.6 Thrombocytopenia, unspecified; E87.1 Hypo-osmolality and hyponatremia; M79.7 Fibromyalgia; E03.9 Hypothyroidism, unspecified; F32.9 Major depressive disorder, single episode, unspecified; F41.9 Anxiety disorder, unspecified; E87.6 Hypokalemia; F17.210 Nicotine dependence, cigarettes, uncomplicated; G89.29 Other chronic pain; M54.5 Low back pain; Z79.899 Other long term (current) drug therapy; Z98.84 Bariatric surgery status; Z88.1 Allergy status to other antibiotic agents; Z88.5 Allergy status to narcotic agent; Z88.2 Allergy status to sulfonamides
CPT/HCPCS: 96361 ×4; 99285 ×2; 96365; 36415; 94760; 95819; 93005; 80053; 80048 ×2; 84443; 85025 ×2; 81003; 80306; 80320; 70450; G0378 ×3; S4990 ×2; J1644 ×2; C9113

== ENCOUNTER 2017-04-13 10:37 | Emergency (ER) | payer OTHER ==
[2017-04-13] MEDS ORDERED: SODIUM CHLORIDE 0.9% 1,000 ML IV STA (11:05)
[2017-04-13] MEDS ORDERED: LORazepam 2 MG/ML SYRINGE IV STA (11:05)
[2017-04-13 11:20] VITALS: RESP 18
--- NOTE | 2017-04-13 11:23 | ED ---
General Adult HPI - General Chief complaint: Seizure Stated complaint: Seizure, Headache Time Seen by Provider: 04/13/17 11:00 Source: EMS, RN notes reviewed Mode of arrival: EMS Limitations: no limitations - History of Present Illness Initial comments: Patient 36-year-old female who presents emergency room today with chief complaint of seizure. She does admit that she had a grand mal type seizure earlier today. Does admit that she's been taking her seizure medication. She does admit that she fell hitting the back of her head and neck. Does admit to headache. Admits to history of migraines. States the migraine headache starting. Patient denies any other complaints or associated symptoms at this time. Patient denies any recent fever, chills, shortness of breath, chest pain, back pain, abdominal pain, nausea or vomiting, numbness or tingling, dysuria or hematuria, constipation or diarrhea, visual changes, or any other complaints. - Related Data Home Medications Medication Instructions Recorded Confirmed Levothyroxine Sodium [Synthroid] 300 mcg PO DAILY 09/23/14 04/13/17 Ibuprofen [Motrin] 800 mg PO Q8HR PRN 05/02/16 04/13/17 OXcarbazepine [Trileptal] 900 mg PO BID 05/02/16 04/13/17 Ferrous Sulfate [Feosol] 325 mg PO BID 03/03/17 04/13/17 ARIPiprazole [Abilify] 5 mg PO HS 03/27/17 04/13/17 HYDROcodone/APAP 10-325MG [Dwarf 1 tab PO Q6H PRN 03/27/17 04/13/17 10-325] lamoTRIgine [LaMICtal] 200 mg PO HS 03/27/17 04/13/17 Previous Rx's Medication Instructions Recorded Gabapentin [Neurontin] 800 mg PO TID #90 tablet 06/19/15 Sertraline [Zoloft] 100 mg PO BID tab 02/10/16 LORazepam [Ativan] 0.5 mg PO Q6HR PRN #10 tab 03/29/17 lamoTRIgine [LaMICtal] 50 mg PO DAILY #30 tab 03/29/17 Allergies Allergy/AdvReac Type Severity Reaction Status Date / Time ciprofloxacin [From Cipro] Allergy Unknown Rash/Hives Verified 04/13/17 11:23 morphine Allergy Unknown Anaphylaxis Verified 04/13/17 11:23 nitrofurantoin Allergy Unknown Rash/Hives Verified 04/13/17 11:23 [From Macrobid] nitrofurantoin Allergy Unknown Rash/Hives Verified 04/13/17 11:23 macrocrystalline [From Macrobid] sulfamethoxazole Allergy Unknown Rash/Hives Verified 04/13/17 11:23 [From Bactrim] trimethoprim [From Bactrim] Allergy Unknown Rash/Hives Verified 04/13/17 11:23 adhesive tape Allergy Rash/Hives Verified 04/13/17 11:23 PAPER TAPE Allergy PEELS Uncoded 04/13/17 11:06 SKIN,RASH STERI STRIPS Allergy RASH, Uncoded 04/13/17 11:06 PEELS SKIN Review of Systems ROS Statement: Those systems with pertinent positive or pertinent negative responses have been documented in the HPI. ROS Other: All systems not noted in ROS Statement are negative. Past Medical History Past Medical History: Fibromyalgia, Osteoarthritis (OA), Seizure Disorder, Thyroid Disorder Additional Past Medical History / Comment(s): Seizures, DDD lumbar, heniated discs lumbar and cervical, fibromyalgia, IBS, hypothryoidism, migraines, Fx knee 09/2015-healed with brace, L foot fractured a total of 5 times-had surgery with screws placed. 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 Past Anesthesia/Blood Transfusion Reactions: No Reported Reaction Past Psychological History: Bipolar Additional Psychological History / Comment(s): Pt states she is on medications that work well for her hx of bipolar. She resides with her 2 daughters ages 2 and 15. She is independent. She drives. Smoking Status: Current every day smoker Past Alcohol Use History: None Reported Additional Past Alcohol Use History / Comment(s): SMOKES 3-4 CIGARETTES PER DAY. STARTED SMOKING 2005 Past Drug Use History: None Reported - Past Family History Father Family Medical History: Hypertension Additional Family Medical History / Comment(s): Father is about 53 yrs old and has back problems. Mother Family Medical History: Diabetes Mellitus Additional Family Medical History / Comment(s): Mother is about 53 yrs old General Exam - General Exam Comments Initial Comments: General: The patient is awake and alert, in no distress, and does not appear acutely ill. Eye: Pupils are equal, round and reactive to light, extra-ocular movements are intact. No nystagmus. There is normal conjunctiva bilaterally. No signs of icterus. Ears, nose, mouth and throat: There are moist mucous membranes and no oral lesions. Neck: The neck is supple, there is no tenderness or JVD. Cardiovascular: There is a regular rate and rhythm. No murmur, rub or gallop is appreciated. Respiratory: Lungs are clear to auscultation, respirations are non-labored, breath sounds are equal. No wheezes, stridor, rales, or rhonchi. Gastrointestinal: Soft, non-distended, non-tender abdomen without masses or organomegaly noted. There is no rebound or guarding present. No CVA tenderness. Bowel sounds are unremarkable. Musculoskeletal: She does have normal appearance of the cervical, thoracic, lumbar spine. No step-offs forms appreciated. Mild tenderness throughout the cervical spine. She does admit to some chronic pain in this area. No tenderness in thoracic or lumbar. Strength 5/5. Sensation intact. Pulses equal bilaterally 2+. Neurological: A&O x 3. CN II-XII intact, There are no obvious motor or sensory deficits. Coordination appears grossly intact. Speech is normal. Skin: Skin is warm and dry and no rashes or lesions are noted. Psychiatric: Cooperative, appropriate mood & affect, normal judgment. Limitations: no limitations Course Vital Signs 04/13/17 04/13/17 10:40 12:55 Temperature 97 F L 96.8 F L Pulse Rate 72 64 Respiratory 18 18 Rate Blood Pressure 112/64 121/66 O2 Sat by Pulse 95 98 Oximetry Medical Decision Making - Medical Decision Making Patient reexamined at this time shows no signs of distress. Patient's CT of the head and neck negative for any acute abnormalities. Patient's labs been reviewed. She does admit to some symptoms of dysuria with increased frequency. Her urinalysis is consistent with urinary tract infection will be started on antibiotics. Patient discharged home advised follow-up return if any symptoms increase or worsen or for any other concerns. - Lab Data Result diagrams: 04/13/17 11:04 04/13/17 11:04 Lab Results 04/13/17 04/13/17 04/13/17 Range/Units 11:04 11:04 12:30 WBC 4.9 (3.8-10.6) k/uL RBC 4.05 (3.80-5.40) m/uL Hgb 13.0 (11.4-16.0) gm/dL Hct 40.9 (34.0-46.0) % MCV 101.0 H (80.0-100.0) fL MCH 32.2 (25.0-35.0) pg MCHC 31.9 (31.0-37.0) g/dL RDW 13.5 (11.5-15.5) % Plt Count 143 L (150-450) k/uL Neutrophils % 68 % Lymphocytes % 22 % Monocytes % 5 % Eosinophils % 2 % Basophils % 1 % Neutrophils # 3.3 (1.3-7.7) k/uL Lymphocytes # 1.1 (1.0-4.8) k/uL Monocytes # 0.3 (0-1.0) k/uL Eosinophils # 0.1 (0-0.7) k/uL Basophils # 0.0 (0-0.2) k/uL Macrocytosis Slight Sodium 136 L (137-145) mmol/L Potassium 3.6 (3.5-5.1) mmol/L Chloride 109 H (98-107) mmol/L Carbon Dioxide 24 (22-30) mmol/L Anion Gap 3 mmol/L BUN 8 (7-17) mg/dL Creatinine 0.49 L (0.52-1.04) mg/dL Est GFR (MDRD) Af Amer >60 (>60 ml/min/1.73 sqM) Est GFR (MDRD) Non-Af >60 (>60 ml/min/1.73 sqM) Glucose 87 (74-99) mg/dL Calcium 8.0 L (8.4-10.2) mg/dL Total Bilirubin 0.4 (0.2-1.3) mg/dL AST 32 (14-36) U/L ALT 36 (9-52) U/L Alkaline Phosphatase 57 (38-126) U/L Total Protein 5.3 L (6.3-8.2) g/dL Albumin 2.9 L (3.5-5.0) g/dL Urine Color Yellow Urine Appearance Cloudy H (Clear) Urine pH 6.5 (5.0-8.0) Ur Specific [place] 1.010 (1.001-1.035) Urine Protein Negative (Negative) Urine Glucose (UA) Negative (Negative) Urine Ketones Negative (Negative) Urine Blood Negative (Negative) Urine Nitrite Negative (Negative) Urine Bilirubin Negative (Negative) Urine Urobilinogen <2.0 (<2.0) mg/dL Ur Leukocyte Esterase Large H (Negative) Urine WBC 11 H (0-5) /hpf Ur Squamous Epith Cells 3 (0-4) /hpf Urine Bacteria Rare H (None) /hpf Urine Mucus Rare H (None) /hpf Disposition Clinical Impression: Seizure, Head injury Disposition: HOME SELF-CARE Condition: Good Instructions: Recurrent Seizures in Adults (ED) Additional Instructions: Please follow-up with family doctor in the next 2 days of symptoms have not improved. Please return to emergency room if the symptoms increase or worsen or for any other concerns. Referrals: Jason Marrufo DO [Primary Care Provider] - 1-2 days Time of Disposition: 13:15
[2017-04-13 11:29] LABS: Basophils % (A) 1 %; CH 32.5; CHCM 32.4; Eosinophils # (A) 0.1 k/uL (0-0.7); Eosinophils % (A) 2 %; HCT 40.9 % (34.0-46.0); HDW 2.22; Luc % (Auto) 2; Lymphocytes # (A) 1.1 k/uL (1.0-4.8); Lymphocytes % (A) 22 %; MCH 32.2 pg (25.0-35.0); MCHC 31.9 g/dL (31.0-37.0); Macrocytosis Slight; Mean Platelet Volume 8.5; Monocytes # (A) 0.3 k/uL (0-1.0); Monocytes % (A) 5 %; Neutrophils # (A) 3.3 k/uL (1.3-7.7); Neutrophils % (A) 68 %; RBC 4.05 m/uL (3.80-5.40); RDW 13.5 % (11.5-15.5); WBC 4.9 k/uL (3.8-10.6); WBC (Perox) 5.24
[2017-04-13 11:39] LABS: ALT 36 U/L (9-52); AST 32 U/L (14-36); Alkaline Phosphatase 57 U/L (38-126); Anion Gap 3 mmol/L; Blood Urea Nitrogen 8 mg/dL (7-17); Carbon Dioxide 24 mmol/L (22-30); Chloride 109 mmol/L (98-107); Glucose 87 mg/dL (74-99); Non-African American GFR(MDRD) >60 (>60 ml/min/1.73 sqM); Potassium 3.6 mmol/L (3.5-5.1); Sodium 136 mmol/L (137-145); Total Bilirubin 0.4 mg/dL (0.2-1.3); Total Protein 5.3 g/dL (6.3-8.2)
--- NOTE | 2017-04-13 11:58 | CT ---
EXAMINATION TYPE: CT brain noemi nicole DATE OF EXAM: 04/13/2017 COMPARISON: Previous CT scan of the brain dated 03/27/2017 HISTORY: Seizure and fall, hit back of head CT DLP: 2152 mGycm Automated exposure control for dose reduction was used. TECHNIQUE: CT scan of the head and cervical spine are performed without contrast. FINDINGS: BRAIN: Central structures are midline. There is no evidence of hydrocephalus. No acute focal lesion, mass effect or midline shift is seen. I do not see evidence of intracranial blood. Visualized portions of the paranasal sinuses and mastoids are clear. No depressed skull fracture is s een. IMPRESSION: NORMAL CT SCAN OF THE BRAIN. CERVICAL SPINE: Visualized portions of the lungs are clear. There is some shotty cervical adenopathy. Prevertebral soft tissues are otherwise normal. Vertebral body height and alignment are maintained. Atlantoaxial relationships are normal. There is mild disc space loss and hypertrophic spondylosis at C4-5. There is mild uncovertebral joint disease at this level. The facets are unremarkable. No fractures are seen. IMPRESSION: 1. NO ACUTE OSSEOUS LESION. 2. MILD DEGENERATIVE CHANGE.
[2017-04-13 13:08] LABS: Appearance,Urine Cloudy (Clear); Bacteria,Urine Rare /hpf; Bilirubin,Urine Negative (Negative); Glucose,Urine (UA) Negative (Negative); Ketones,Urine Negative (Negative); Leukocyte Esterase,Urine Large (Negative); Mucus,Urine Rare /hpf; Nitrite,Urine Negative (Negative); PH, Urine 6.5 (5.0-8.0); Particle Count 7662; Protein,Urine Negative (Negative); Squamous Epithelial Cell,Urine 3 /hpf (0-4); UA Billing (MACRO vs. MICRO) MICRO; Urobilinogen,Urine <2.0 mg/dL (<2.0); WBC,Urine 11 /hpf (0-5)
[2017-04-13] MEDS ORDERED: KETOROLAC 30 MG/ML 1 ML VIAL IVP STA (13:14)
--- NOTE | 2017-04-13 13:18 | ED ---
Medical Decision Making - Lab Data Result diagrams: 04/13/17 11:04 04/13/17 11:04 Lab Results 04/13/17 04/13/17 04/13/17 Range/Units 11:04 11:04 12:30 WBC 4.9 (3.8-10.6) k/uL RBC 4.05 (3.80-5.40) m/uL Hgb 13.0 (11.4-16.0) gm/dL Hct 40.9 (34.0-46.0) % MCV 101.0 H (80.0-100.0) fL MCH 32.2 (25.0-35.0) pg MCHC 31.9 (31.0-37.0) g/dL RDW 13.5 (11.5-15.5) % Plt Count 143 L (150-450) k/uL Neutrophils % 68 % Lymphocytes % 22 % Monocytes % 5 % Eosinophils % 2 % Basophils % 1 % Neutrophils # 3.3 (1.3-7.7) k/uL Lymphocytes # 1.1 (1.0-4.8) k/uL Monocytes # 0.3 (0-1.0) k/uL Eosinophils # 0.1 (0-0.7) k/uL Basophils # 0.0 (0-0.2) k/uL Macrocytosis Slight Sodium 136 L (137-145) mmol/L Potassium 3.6 (3.5-5.1) mmol/L Chloride 109 H (98-107) mmol/L Carbon Dioxide 24 (22-30) mmol/L Anion Gap 3 mmol/L BUN 8 (7-17) mg/dL Creatinine 0.49 L (0.52-1.04) mg/dL Est GFR (MDRD) Af Amer >60 (>60 ml/min/1.73 sqM) Est GFR (MDRD) Non-Af >60 (>60 ml/min/1.73 sqM) Glucose 87 (74-99) mg/dL Calcium 8.0 L (8.4-10.2) mg/dL Total Bilirubin 0.4 (0.2-1.3) mg/dL AST 32 (14-36) U/L ALT 36 (9-52) U/L Alkaline Phosphatase 57 (38-126) U/L Total Protein 5.3 L (6.3-8.2) g/dL Albumin 2.9 L (3.5-5.0) g/dL Urine Color Yellow Urine Appearance Cloudy H (Clear) Urine pH 6.5 (5.0-8.0) Ur Specific [place] 1.010 (1.001-1.035) Urine Protein Negative (Negative) Urine Glucose (UA) Negative (Negative) Urine Ketones Negative (Negative) Urine Blood Negative (Negative) Urine Nitrite Negative (Negative) Urine Bilirubin Negative (Negative) Urine Urobilinogen <2.0 (<2.0) mg/dL Ur Leukocyte Esterase Large H (Negative) Urine WBC 11 H (0-5) /hpf Ur Squamous Epith Cells 3 (0-4) /hpf Urine Bacteria Rare H (None) /hpf Urine Mucus Rare H (None) /hpf Disposition Clinical Impression: Seizure, Head injury, UTI (urinary tract infection) Disposition: HOME SELF-CARE Condition: Good Instructions: Recurrent Seizures in Adults (ED) Additional Instructions: Please follow-up with family doctor in the next 2 days of symptoms have not improved. Please return to emergency room if the symptoms increase or worsen or for any other concerns. Prescriptions: Amoxicillin/Potassium Clav [Augmentin 875-125 Tablet] 1 each PO Q12HR #20 tab Referrals: Jason Marrufo DO [Primary Care Provider] - 1-2 days Time of Disposition: 13:18
[2017-04-13 13:26] VITALS: BP 121/75; PULSE 57; TEMP 97.8
== END 2017-04-13 13:41 | disposition home or self-care (01) ==
LOC: EC 10:37
DX: G40.909 Epilepsy, unspecified, not intractable, without status epilepticus (principal); S09.90XA Unspecified injury of head, initial encounter; N39.0 Urinary tract infection, site not specified; E03.9 Hypothyroidism, unspecified; F17.210 Nicotine dependence, cigarettes, uncomplicated; F31.9 Bipolar disorder, unspecified; Z88.1 Allergy status to other antibiotic agents; Z88.5 Allergy status to narcotic agent; Z88.2 Allergy status to sulfonamides; Z91.048 Other nonmedicinal substance allergy status; Z79.899 Other long term (current) drug therapy; W01.198A Fall on same level from slipping, tripping and stumbling with subsequent striking against other object, initial encounter
CPT/HCPCS: 99285; 96374; 96375; 96361; 36415; 80053; 85025; 81001; 81025; 72125; 70450; J2060; J1885

== ENCOUNTER 2017-07-09 22:22 | Emergency (ER) | payer OTHER ==
[2017-07-09 22:29] VITALS: RESP 18; TEMP 98.1
[2017-07-09] MEDS ORDERED: HYDROmorphone 1 MG/ML 1 ML SYRINGE IVP STA (22:47)
[2017-07-09] MEDS ORDERED: METOCLOPRAMIDE 5 MG/ML 2 ML VIAL IVP STA (22:47)
[2017-07-09] MEDS ORDERED: SODIUM CHLORIDE 0.9% 1,000 ML IV STA ×2 (22:47)
[2017-07-09] MEDS ORDERED: FAMOTIDINE 20 MG/2 ML VIAL IV STA (22:47)
--- NOTE | 2017-07-09 22:57 | ED ---
General Adult HPI - General Chief complaint: Abdominal Pain Stated complaint: abdominal & back pain Time Seen by Provider: 07/09/17 22:37 Source: patient, family, RN notes reviewed, old records reviewed Mode of arrival: wheelchair Limitations: no limitations - History of Present Illness Initial comments: Chief complaint history of present illness a 37-year-old female with complaint of right flank pain that comes around toward the right. This been ongoing for 24 hours nausea no vomiting. Decreased appetite. She does have a history of kidney stones that she thinks she may be having another one. She has difficulty sitting still because of discomfort. No significant change in urination. - Related Data Home Medications Medication Instructions Recorded Confirmed Levothyroxine Sodium [Synthroid] 300 mcg PO DAILY 09/23/14 07/09/17 Ibuprofen [Motrin] 800 mg PO Q8HR PRN 05/02/16 07/09/17 Ferrous Sulfate [Feosol] 325 mg PO BID 03/03/17 07/09/17 HYDROcodone/APAP 10-325MG [[place] 1 tab PO Q6H PRN 03/27/17 07/09/17 10-325] lamoTRIgine [LaMICtal] 200 mg PO HS 03/27/17 07/09/17 ARIPiprazole [Abilify] 10 mg PO HS 07/09/17 07/09/17 Cholecalciferol [Vitamin D3] 5,000 unit PO DAILY 07/09/17 07/09/17 Magnesium Oxide [Mag-Ox] 250 mg PO DAILY 07/09/17 07/09/17 OXcarbazepine [Trileptal] 300 mg PO BID 07/09/17 07/09/17 OXcarbazepine [Trileptal] 600 mg PO BID 07/09/17 07/09/17 Paliperidone IM [Invega Sustenna] 156 mg IM Q30D 07/09/17 07/09/17 QUEtiapine [SEROquel] 100 mg PO HS 07/09/17 07/09/17 Sertraline [Zoloft] 200 mg PO DAILY 07/09/17 07/09/17 busPIRone HCL [Buspar] 7.5 mg PO BID 07/09/17 07/09/17 Previous Rx's Medication Instructions Recorded Gabapentin [Neurontin] 800 mg PO TID #90 tablet 06/19/15 lamoTRIgine [LaMICtal] 50 mg PO DAILY #30 tab 03/29/17 Hydrocodone/Acetaminophen [[place] 1 each PO Q6HR PRN #10 tab 07/10/17 5-325] Ondansetron Odt [Zofran Odt] 4 mg PO Q8HR PRN #10 tab 07/10/17 Allergies Allergy/AdvReac Type Severity Reaction Status Date / Time ciprofloxacin [From Cipro] Allergy Unknown Rash/Hives Verified 07/09/17 22:49 morphine Allergy Unknown Anaphylaxis Verified 07/09/17 22:49 nitrofurantoin Allergy Unknown Rash/Hives Verified 07/09/17 22:49 [From Macrobid] nitrofurantoin Allergy Unknown Rash/Hives Verified 07/09/17 22:49 macrocrystalline [From Macrobid] sulfamethoxazole Allergy Unknown Rash/Hives Verified 07/09/17 22:49 [From Bactrim] trimethoprim [From Bactrim] Allergy Unknown Rash/Hives Verified 07/09/17 22:49 adhesive tape Allergy Rash/Hives Verified 07/09/17 22:49 PAPER TAPE Allergy PEELS Uncoded 07/09/17 22:29 SKIN,RASH STERI STRIPS Allergy RASH, Uncoded 07/09/17 22:29 PEELS SKIN Review of Systems ROS Statement: Those systems with pertinent positive or pertinent negative responses have been documented in the HPI. Review of systems all complaining headache or chest pain or shortness of breath. She has left flank pain that radiates around to the right. She's oriented gallbladder removed. Patient has nausea but no vomiting, she does have irritable bowel syndrome and has had diarrhea on normal basis. All systems are reviewed. Past medical problems significant for cervical cancer, fibromyalgia, osteoarthritis, seizure disorder, hypothyroidism, degenerative disc disease and kidney stones. Her surgeries include bariatric surgery, C- section, cholecystectomy, right shoulder repair rotator cuff and total left knee. Family history includes cancers of the breast, lung and brain. Patient has ALLERGIES to Cipro, morphine but she can take Dilaudid. Nitrofurantoin and sulfa. The patient smokes to stop denies alcohol ROS Other: All systems not noted in ROS Statement are negative. Past Medical History Past Medical History: Fibromyalgia, Osteoarthritis (OA), Seizure Disorder, Thyroid Disorder Additional Past Medical History / Comment(s): Seizures, DDD lumbar, heniated discs lumbar and cervical, fibromyalgia, IBS, hypothryoidism, migraines, Fx knee 09/2015-healed with brace, L foot fractured a total of 5 times-had surgery with screws placed. 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 Past Anesthesia/Blood Transfusion Reactions: No Reported Reaction Past Psychological History: Anxiety, Bipolar, Depression, Panic Disorder, Schizophrenia Smoking Status: Current every day smoker Past Alcohol Use History: None Reported Past Drug Use History: None Reported - Past Family History Father Family Medical History: Hypertension Additional Family Medical History / Comment(s): Father is about 53 yrs old and has back problems. Mother Family Medical History: Diabetes Mellitus Additional Family Medical History / Comment(s): Mother is about 53 yrs old General Exam - General Exam Comments Initial Comments: General: The patient is awake and alert, complaining of right flank and right mid abdominal pain for 24 hours nausea no vomiting. Vital signs temperature 98.1 pulse 86 respiratory rate 18 pulse ox 98% room air blood pressure pressure 107/ 68 Eye: Pupils are equal, , extra-ocular movements are intact; there is normal conjunctiva bilaterally. No signs of icterus. Ears, nose, mouth and throat: There are moist mucous membranes Neck: The neck is supple, Cardiovascular: There is a regular rate and rhythm. No murmur, rub or gallop is appreciated. Respiratory: Lungs are clear to auscultation, respirations are non-labored, breath sounds are equal. No wheezes, stridor, rales, or rhonchi. Gastrointestinal: Soft, non-distended, non-tender abdomen without masses or organomegaly noted. There is no rebound or guarding present. Right CVA tenderness. Bowel sounds are unremarkable. Back: Positive for kidney punch his right side. No bruising noted early shingles discussed. Musculoskeletal: No complaint of upper and lower she leg pain. Neurological: No neuro deficits Skin: No rashes. Psychiatric: Cooperative, appropriate mood & affect, normal judgment. Limitations: no limitations Course Vital Signs 07/09/17 07/10/17 22:28 00:42 Temperature 98.1 F Pulse Rate 86 71 Respiratory 18 18 Rate Blood Pressure 107/68 90/56 O2 Sat by Pulse 98 97 Oximetry Medical Decision Making - Medical Decision Making Medical decision making the patient's white count is 4.7 hemoglobin 13 hematocrit 41.8. Potassium is 4.3 with a BUN 12 creatinine 0.6 GFR greater than 60. Glucose 97. Total bilirubin 0.1. Lipase is elevated mildly at 349. Urine shows 2 whites [address] of the abdomen and pelvis was done and reviewed by radiologist significant findings include kidneys and ureters unremarkable. No obstructing stones. No hydronephrosis. Appendix no findings to support or suggest acute appendicitis. Bladder unremarkable no stones. pancreas unremarkable. No ductile dilatation. Final impression no acute intra-abdominal process. Stool throughout the colon. this time the patient appears to be a mild pancreatitis. She is able to keep her fluids down. She'll be placed on antinausea medication and pain pills. She 'll be advised to advance her diet and follow up with her family physician. - Lab Data Result diagrams: 07/09/17 23:15 07/09/17 23:15 Lab Results 07/09/17 07/09/17 07/09/17 Range/Units 23:15 23:15 23:15 WBC 4.7 (3.8-10.6) k/uL RBC 4.28 (3.80-5.40) m/uL Hgb 13.3 (11.4-16.0) gm/dL Hct 41.8 (34.0-46.0) % MCV 97.7 (80.0-100.0) fL MCH 31.0 (25.0-35.0) pg MCHC 31.7 (31.0-37.0) g/dL RDW 14.0 (11.5-15.5) % Plt Count 134 L (150-450) k/uL Neutrophils % 56 % Lymphocytes % 33 % Monocytes % 5 % Eosinophils % 4 % Basophils % 1 % Neutrophils # 2.6 (1.3-7.7) k/uL Lymphocytes # 1.6 (1.0-4.8) k/uL Monocytes # 0.2 (0-1.0) k/uL Eosinophils # 0.2 (0-0.7) k/uL Basophils # 0.0 (0-0.2) k/uL Sodium 138 (137-145) mmol/L Potassium 4.3 (3.5-5.1) mmol/L Chloride 112 H (98-107) mmol/L Carbon Dioxide 22 (22-30) mmol/L Anion Gap 4 mmol/L BUN 12 (7-17) mg/dL Creatinine 0.60 (0.52-1.04) mg/dL Est GFR (MDRD) Af Amer >60 (>60 ml/min/1.73 sqM) Est GFR (MDRD) Non-Af >60 (>60 ml/min/1.73 sqM) Glucose 97 (74-99) mg/dL Plasma Lactic Acid Daniel 0.9 (0.7-2.0) mmol/L Calcium 8.5 (8.4-10.2) mg/dL Total Bilirubin 0.1 L (0.2-1.3) mg/dL AST 27 (14-36) U/L ALT 38 (9-52) U/L Alkaline Phosphatase 69 (38-126) U/L Total Protein 5.0 L (6.3-8.2) g/dL Albumin 2.8 L (3.5-5.0) g/dL Amylase 67 (30-110) U/L Lipase 349 H (23-300) U/L Urine Color Urine Appearance (Clear) Urine pH (5.0-8.0) Ur Specific [place] (1.001-1.035) Urine Protein (Negative) Urine Glucose (UA) (Negative) Urine Ketones (Negative) Urine Blood (Negative) Urine Nitrite (Negative) Urine Bilirubin (Negative) Urine Urobilinogen (<2.0) mg/dL Ur Leukocyte Esterase (Negative) Urine RBC (0-5) /hpf Urine WBC (0-5) /hpf Ur Squamous Epith Cells (0-4) /hpf Urine Bacteria (None) /hpf 07/09/17 Range/Units 23:15 WBC (3.8-10.6) k/uL RBC (3.80-5.40) m/uL Hgb (11.4-16.0) gm/dL Hct (34.0-46.0) % MCV (80.0-100.0) fL MCH (25.0-35.0) pg MCHC (31.0-37.0) g/dL RDW (11.5-15.5) % Plt Count (150-450) k/uL Neutrophils % % Lymphocytes % % Monocytes % % Eosinophils % % Basophils % % Neutrophils # (1.3-7.7) k/uL Lymphocytes # (1.0-4.8) k/uL Monocytes # (0-1.0) k/uL Eosinophils # (0-0.7) k/uL Basophils # (0-0.2) k/uL Sodium (137-145) mmol/L Potassium (3.5-5.1) mmol/L Chloride (98-107) mmol/L Carbon Dioxide (22-30) mmol/L Anion Gap mmol/L BUN (7-17) mg/dL Creatinine (0.52-1.04) mg/dL Est GFR (MDRD) Af Amer (>60 ml/min/1.73 sqM) Est GFR (MDRD) Non-Af (>60 ml/min/1.73 sqM) Glucose (74-99) mg/dL Plasma Lactic Acid Daniel (0.7-2.0) mmol/L Calcium (8.4-10.2) mg/dL Total Bilirubin (0.2-1.3) mg/dL AST (14-36) U/L ALT (9-52) U/L Alkaline Phosphatase (38-126) U/L Total Protein (6.3-8.2) g/dL Albumin (3.5-5.0) g/dL Amylase (30-110) U/L Lipase (23-300) U/L Urine Color Yellow Urine Appearance Cloudy H (Clear) Urine pH 7.0 (5.0-8.0) Ur Specific [place] 1.014 (1.001-1.035) Urine Protein Negative (Negative) Urine Glucose (UA) Negative (Negative) Urine Ketones Negative (Negative) Urine Blood Negative (Negative) Urine Nitrite Negative (Negative) Urine Bilirubin Negative (Negative) Urine Urobilinogen <2.0 (<2.0) mg/dL Ur Leukocyte Esterase Moderate H (Negative) Urine RBC <1 (0-5) /hpf Urine WBC 2 (0-5) /hpf Ur Squamous Epith Cells 42 H (0-4) /hpf Urine Bacteria Rare H (None) /hpf Disposition Clinical Impression: Pancreatitis, acute Disposition: HOME SELF-CARE Condition: Fair Instructions: Pancreatitis (ED) Additional Instructions: Use Zofran for nausea and hydrocodone for pain advanced fluid in diet. Follow up with your family physician Prescriptions: Hydrocodone/Acetaminophen [[place] 5-325] 1 each PO Q6HR PRN #10 tab PRN Reason: Pain Ondansetron Odt [Zofran Odt] 4 mg PO Q8HR PRN #10 tab PRN Reason: Nausea Referrals: Leslee Saab DO [Primary Care Provider] - 1-2 days Time of Disposition: 01:23
[2017-07-09 23:28] LABS: Basophils % (A) 1 %; CH 32.1; CHCM 33.1; Eosinophils # (A) 0.2 k/uL (0-0.7); Eosinophils % (A) 4 %; HCT 41.8 % (34.0-46.0); HDW 2.18; HGB 13.3 gm/dL (11.4-16.0); Luc # (Auto) 0.07; Luc % (Auto) 2; Lymphocytes # (A) 1.6 k/uL (1.0-4.8); Lymphocytes % (A) 33 %; MCHC 31.7 g/dL (31.0-37.0); MCV 97.7 fL (80.0-100.0); Monocytes # (A) 0.2 k/uL (0-1.0); Monocytes % (A) 5 %; Neutrophils # (A) 2.6 k/uL (1.3-7.7); Neutrophils % (A) 56 %; RBC 4.28 m/uL (3.80-5.40); WBC 4.7 k/uL (3.8-10.6); WBC (Perox) 4.95
[2017-07-09 23:33] LABS: Appearance,Urine Cloudy (Clear); Bacteria,Urine Rare /hpf; Bilirubin,Urine Negative (Negative); Glucose,Urine (UA) Negative (Negative); Ketones,Urine Negative (Negative); Leukocyte Esterase,Urine Moderate (Negative); Nitrite,Urine Negative (Negative); Particle Count 4774; Protein,Urine Negative (Negative); RBC,Urine <1 /hpf (0-5); Specific Gravity,Urine 1.014 (1.001-1.035); Squamous Epithelial Cell,Urine 42 /hpf (0-4); UA Billing (MACRO vs. MICRO) MICRO; Urobilinogen,Urine <2.0 mg/dL (<2.0); WBC,Urine 2 /hpf (0-5)
[2017-07-09 23:39] LABS: ALT 38 U/L (9-52); AST 27 U/L (14-36); Alkaline Phosphatase 69 U/L (38-126); Amylase 67 U/L (30-110); Anion Gap 4 mmol/L; Blood Urea Nitrogen 12 mg/dL (7-17); Calcium 8.5 mg/dL (8.4-10.2); Carbon Dioxide 22 mmol/L (22-30); Chloride 112 mmol/L (98-107); Glucose 97 mg/dL (74-99); Non-African American GFR(MDRD) >60 (>60 ml/min/1.73 sqM); Potassium 4.3 mmol/L (3.5-5.1); Sodium 138 mmol/L (137-145); Total Bilirubin 0.1 mg/dL (0.2-1.3)
--- NOTE | 2017-07-09 23:57 | XR ---
EXAM: XR Abdomen Complete, 2 or More Views CLINICAL HISTORY: Reason: abdominal pain TECHNIQUE: Frontal view of the abdomen/pelvis with upright view of the abdomen. COMPARISON: No relevant prior studies available. FINDINGS: Intraperitoneal space: No free air. Gastrointestinal tract: Stool throughout the colon. No dilation. Organs: Cholecystectomy noted. Bones/joints: Unremarkable. IMPRESSION: No acute findings. Stool throughout the colon.
--- NOTE | 2017-07-10 00:55 | CT ---
EXAM: CT Abdomen and Pelvis Without Intravenous Contrast CLINICAL HISTORY: Reason: right flank, RUQ pain, renal colic ? TECHNIQUE: Axial computed tomography images of the abdomen and pelvis without intravenous contrast. DLP is 1344.80 mGy-cm. This CT exam was performed using one or more of the following dose reduction techniques: automated exposure control, adjustment of the mA and/or kV according to patient size, and/or use of iterative reconstruction technique. COMPARISON: 03/19/14 FINDINGS: Lower thorax: No acute findings. ABDOMEN: Liver: Unremarkable. Gallbladder and bile ducts: Cholecystectomy. Prominence of the common bile duct which may relate to cholecystectomy. Pancreas: Unremarkable. No ductal dilation. Spleen: Unremarkable. No splenomegaly. Adrenals: Unremarkable. No mass. Kidneys and ureters: Unremarkable. No obstructing stones. No hydronephrosis. Stomach and bowel: Unremarkable. No obstruction. No mucosal thickening. Stool throughout the colon. Appendix: No findings to suggest acute appendicitis. PELVIS: Bladder: Unremarkable. No stones. Reproductive: Unremarkable as visualized. ABDOMEN and PELVIS: Intraperitoneal space: Unremarkable. No free air. No significant fluid collection. Bones/joints: No acute fracture. No dislocation. Soft tissues: Unremarkable. Vasculature: Unremarkable. No abdominal aortic aneurysm. Lymph nodes: Unremarkable. No enlarged lymph nodes. IMPRESSION: No acute intra-abdominal process. Stool throughout the colon
[2017-07-10] MEDS ORDERED: carBAMazepine 200 MG TAB PO STA (01:05)
[2017-07-10 01:22] VITALS: BP 121/76; PULSE 76
[2017-07-10] MEDS ORDERED: ONDANSETRON 4 MG ODT STARTER PACK 2 TAB BTL PO STA (01:40)
== END 2017-07-10 01:45 | disposition home or self-care (01) ==
LOC: EC 22:22
DX: K85.90 Acute pancreatitis without necrosis or infection, unspecified (principal); E07.9 Disorder of thyroid, unspecified; G40.909 Epilepsy, unspecified, not intractable, without status epilepticus; M19.90 Unspecified osteoarthritis, unspecified site; F41.9 Anxiety disorder, unspecified; F20.9 Schizophrenia, unspecified; F17.200 Nicotine dependence, unspecified, uncomplicated; Z87.442 Personal history of urinary calculi; Z90.49 Acquired absence of other specified parts of digestive tract; Z98.84 Bariatric surgery status; Z88.1 Allergy status to other antibiotic agents; Z88.2 Allergy status to sulfonamides; Z88.5 Allergy status to narcotic agent; Z91.048 Other nonmedicinal substance allergy status; Z79.899 Other long term (current) drug therapy
CPT/HCPCS: 99285; 96374; 96375 ×2; 96361 ×2; 36415; 80053; 82150; 83605; 83690; 85025; 81001; 87086; 74020; 74176; J2765; J1170; S0119

== ENCOUNTER 2017-07-12 14:50 | Emergency (ER) | payer OTHER ==
[2017-07-12] MEDS ORDERED: METOCLOPRAMIDE 5 MG/ML 2 ML VIAL IVP STA (15:20)
[2017-07-12] MEDS ORDERED: diphenhydrAMINE 50 MG/ML 1 ML VIAL IVP STA (15:20)
[2017-07-12] MEDS ORDERED: SODIUM CHLORIDE 0.9% 1,000 ML IV STA (15:20)
[2017-07-12] MEDS ORDERED: HYDROmorphone 1 MG/ML 1 ML SYRINGE IVP STA (15:22)
--- NOTE | 2017-07-12 15:32 | ED ---
Abdominal Pain HPI - General Chief Complaint: Abdominal Pain Stated Complaint: Abd Pain Time Seen by Provider: 07/12/17 15:11 Source: patient, RN notes reviewed, old records reviewed Mode of arrival: ambulatory Limitations: no limitations - History of Present Illness Initial Comments: This is a 37-year-old female chief complaint of increased right upper quadrant and right flank abdominal pain for the past 4 days. Patient was evaluated 2 days ago received a CAT scan and blood work. That time she was told that she had mild pancreatitis. She reports that she's been maintaining her fluid intake. She denies any specific vomiting. She has reported increased diarrhea. Patient states that she has had no blood in her stools that she is aware of. Denies any specific fever or chills, but patient is noted to have a low-grade temperature upon arrival to the emergency Department via 9.9. Patient reports surgical history includes cholecystectomy, gastric bypass. - Related Data Home Medications Medication Instructions Recorded Confirmed Levothyroxine Sodium [Synthroid] 300 mcg PO DAILY 09/23/14 07/12/17 Ibuprofen [Motrin] 800 mg PO Q8HR PRN 05/02/16 07/12/17 Ferrous Sulfate [Feosol] 325 mg PO BID 03/03/17 07/12/17 lamoTRIgine [LaMICtal] 200 mg PO HS 03/27/17 07/12/17 ARIPiprazole [Abilify] 10 mg PO HS 07/09/17 07/12/17 Cholecalciferol [Vitamin D3] 5,000 unit PO DAILY 07/09/17 07/12/17 Magnesium Oxide [Mag-Ox] 250 mg PO DAILY 07/09/17 07/12/17 OXcarbazepine [Trileptal] 300 mg PO BID 07/09/17 07/12/17 OXcarbazepine [Trileptal] 600 mg PO BID 07/09/17 07/12/17 Paliperidone IM [Invega Sustenna] 156 mg IM Q30D 07/09/17 07/12/17 QUEtiapine [SEROquel] 100 mg PO HS 07/09/17 07/12/17 Sertraline [Zoloft] 200 mg PO DAILY 07/09/17 07/12/17 busPIRone HCL [Buspar] 7.5 mg PO BID 07/09/17 07/12/17 Hydrocodone/Acetaminophen [[place] 1 tab PO Q6HR PRN 07/12/17 07/12/17 5-325] Previous Rx's Medication Instructions Recorded Gabapentin [Neurontin] 800 mg PO TID #90 tablet 06/19/15 lamoTRIgine [LaMICtal] 50 mg PO DAILY #30 tab 03/29/17 Ondansetron Odt [Zofran Odt] 4 mg PO Q8HR PRN #10 tab 07/10/17 Ondansetron Odt [Zofran Odt] 4 mg PO Q8HR PRN #12 tab 07/12/17 Sucralfate [Carafate] 1 gm PO BID #20 tablet 07/12/17 Allergies Allergy/AdvReac Type Severity Reaction Status Date / Time ciprofloxacin [From Cipro] Allergy Unknown Rash/Hives Verified 07/12/17 15:12 morphine Allergy Unknown Anaphylaxis Verified 07/12/17 15:12 nitrofurantoin Allergy Unknown Rash/Hives Verified 07/12/17 15:12 [From Macrobid] nitrofurantoin Allergy Unknown Rash/Hives Verified 07/12/17 15:12 macrocrystalline [From Macrobid] sulfamethoxazole Allergy Unknown Rash/Hives Verified 07/12/17 15:12 [From Bactrim] trimethoprim [From Bactrim] Allergy Unknown Rash/Hives Verified 07/12/17 15:12 adhesive tape Allergy Rash/Hives Verified 07/12/17 15:12 PAPER TAPE Allergy PEELS Uncoded 07/12/17 15:08 SKIN,RASH STERI STRIPS Allergy RASH, Uncoded 07/12/17 15:08 PEELS SKIN Review of Systems ROS Statement: Those systems with pertinent positive or pertinent negative responses have been documented in the HPI. ROS Other: All systems not noted in ROS Statement are negative. Past Medical History Past Medical History: Fibromyalgia, Osteoarthritis (OA), Seizure Disorder, Thyroid Disorder Additional Past Medical History / Comment(s): Seizures, DDD lumbar, heniated discs lumbar and cervical, fibromyalgia, IBS, hypothryoidism, migraines, Fx knee 09/2015-healed with brace, L foot fractured a total of 5 times-had surgery with screws placed. 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 Past Anesthesia/Blood Transfusion Reactions: No Reported Reaction Past Psychological History: Anxiety, Bipolar, Depression, Panic Disorder, Schizophrenia Smoking Status: Current every day smoker Past Alcohol Use History: None Reported Past Drug Use History: None Reported - Past Family History Father Family Medical History: Hypertension Additional Family Medical History / Comment(s): Father is about 53 yrs old and has back problems. Mother Family Medical History: Diabetes Mellitus Additional Family Medical History / Comment(s): Mother is about 53 yrs old General Exam Limitations: no limitations Course Vital Signs 07/12/17 07/12/17 15:05 16:08 Temperature 99.9 F H Pulse Rate 98 74 Respiratory 20 18 Rate Blood Pressure 98/56 135/66 O2 Sat by Pulse 97 98 Oximetry Medical Decision Making - Lab Data Result diagrams: 07/12/17 15:34 07/12/17 15:34 Lab Results 07/12/17 07/12/17 07/12/17 Range/Units 15:34 15:34 15:34 WBC 5.0 (3.8-10.6) k/uL RBC 4.41 (3.80-5.40) m/uL Hgb 13.9 (11.4-16.0) gm/dL Hct 41.7 (34.0-46.0) % MCV 94.6 (80.0-100.0) fL MCH 31.5 (25.0-35.0) pg MCHC 33.3 (31.0-37.0) g/dL RDW 12.9 (11.5-15.5) % Plt Count 130 L (150-450) k/uL Neutrophils % 68 % Lymphocytes % 23 % Monocytes % 5 % Eosinophils % 2 % Basophils % 1 % Neutrophils # 3.4 (1.3-7.7) k/uL Lymphocytes # 1.2 (1.0-4.8) k/uL Monocytes # 0.3 (0-1.0) k/uL Eosinophils # 0.1 (0-0.7) k/uL Basophils # 0.0 (0-0.2) k/uL PT 10.3 (9.0-12.0) sec INR 1.0 (<1.2) APTT 22.9 (22.0-30.0) sec Sodium 136 L (137-145) mmol/L Potassium 3.9 (3.5-5.1) mmol/L Chloride 108 H (98-107) mmol/L Carbon Dioxide 22 (22-30) mmol/L Anion Gap 6 mmol/L BUN 10 (7-17) mg/dL Creatinine 0.70 (0.52-1.04) mg/dL Est GFR (MDRD) Af Amer >60 (>60 ml/min/1.73 sqM) Est GFR (MDRD) Non-Af >60 (>60 ml/min/1.73 sqM) Glucose 99 (74-99) mg/dL Plasma Lactic Acid Daniel (0.7-2.0) mmol/L Calcium 8.7 (8.4-10.2) mg/dL Total Bilirubin 0.2 (0.2-1.3) mg/dL AST 26 (14-36) U/L ALT 40 (9-52) U/L Alkaline Phosphatase 69 (38-126) U/L Total Protein 5.3 L (6.3-8.2) g/dL Albumin 3.0 L (3.5-5.0) g/dL Amylase 66 (30-110) U/L Lipase 221 (23-300) U/L Urine Color Urine Appearance (Clear) Urine pH (5.0-8.0) Ur Specific [place] (1.001-1.035) Urine Protein (Negative) Urine Glucose (UA) (Negative) Urine Ketones (Negative) Urine Blood (Negative) Urine Nitrite (Negative) Urine Bilirubin (Negative) Urine Urobilinogen (<2.0) mg/dL Ur Leukocyte Esterase (Negative) Urine RBC (0-5) /hpf Urine WBC (0-5) /hpf Ur Squamous Epith Cells (0-4) /hpf Urine Bacteria (None) /hpf Urine Mucus (None) /hpf 07/12/17 07/12/17 Range/Units 15:34 15:34 WBC (3.8-10.6) k/uL RBC (3.80-5.40) m/uL Hgb (11.4-16.0) gm/dL Hct (34.0-46.0) % MCV (80.0-100.0) fL MCH (25.0-35.0) pg MCHC (31.0-37.0) g/dL RDW (11.5-15.5) % Plt Count (150-450) k/uL Neutrophils % % Lymphocytes % % Monocytes % % Eosinophils % % Basophils % % Neutrophils # (1.3-7.7) k/uL Lymphocytes # (1.0-4.8) k/uL Monocytes # (0-1.0) k/uL Eosinophils # (0-0.7) k/uL Basophils # (0-0.2) k/uL PT (9.0-12.0) sec INR (<1.2) APTT (22.0-30.0) sec Sodium (137-145) mmol/L Potassium (3.5-5.1) mmol/L Chloride (98-107) mmol/L Carbon Dioxide (22-30) mmol/L Anion Gap mmol/L BUN (7-17) mg/dL Creatinine (0.52-1.04) mg/dL Est GFR (MDRD) Af Amer (>60 ml/min/1.73 sqM) Est GFR (MDRD) Non-Af (>60 ml/min/1.73 sqM) Glucose (74-99) mg/dL Plasma Lactic Acid Daniel 2.0 (0.7-2.0) mmol/L Calcium (8.4-10.2) mg/dL Total Bilirubin (0.2-1.3) mg/dL AST (14-36) U/L ALT (9-52) U/L Alkaline Phosphatase (38-126) U/L Total Protein (6.3-8.2) g/dL Albumin (3.5-5.0) g/dL Amylase (30-110) U/L Lipase (23-300) U/L Urine Color Yellow Urine Appearance Turbid H (Clear) Urine pH 6.0 (5.0-8.0) Ur Specific [place] 1.025 (1.001-1.035) Urine Protein 1+ H (Negative) Urine Glucose (UA) Negative (Negative) Urine Ketones Negative (Negative) Urine Blood Negative (Negative) Urine Nitrite Negative (Negative) Urine Bilirubin Negative (Negative) Urine Urobilinogen 3.0 (<2.0) mg/dL Ur Leukocyte Esterase Large H (Negative) Urine RBC 17 H (0-5) /hpf Urine WBC 35 H (0-5) /hpf Ur Squamous Epith Cells 66 H (0-4) /hpf Urine Bacteria Rare H (None) /hpf Urine Mucus Moderate H (None) /hpf Disposition Clinical Impression: Gastritis and duodenitis Disposition: HOME SELF-CARE Condition: Good Instructions: Gastritis (ED) Additional Instructions: Patient advised to follow-up with your GI specialist. Patient instructed to take the medication as prescribed. Return to emergency department if any alarming signs or symptoms occur. Prescriptions: Ondansetron Odt [Zofran Odt] 4 mg PO Q8HR PRN #12 tab PRN Reason: Nausea Sucralfate [Carafate] 1 gm PO BID #20 tablet Referrals: Lilliana Lee MD [Primary Care Provider] - 1-2 days Time of Disposition: 16:59
--- NOTE | 2017-07-12 15:57 | XR ---
EXAMINATION TYPE: XR KUB DATE OF EXAM: 07/12/2017 3:45 PM CLINICAL HISTORY: Generalized abdominal pain with history of pancreatitis and gastric bypass. Histor y also includes cholecystectomy and . TECHNIQUE: Single upright abdominal radiograph was obtained. COMPARISON: CT abdomen pelvis dated 07/10/2017. FINDINGS: Scattered gas is seen in non-distended small bowel loops. Gas and fecal material is seen in non-distended colon. There is no pneumoperitoneum, or abnormal calcification appreciated. The lung b ases are clear and the osseous structures are intact. Cholecystectomy clips are noted within the righ t upper quadrant. IMPRESSION: Nonobstructive bowel gas pattern.
[2017-07-12 15:58] LABS: Basophils % (A) 1 %; CH 30.6; CHCM 32.5; Eosinophils # (A) 0.1 k/uL (0-0.7); Eosinophils % (A) 2 %; HCT 41.7 % (34.0-46.0); HDW 2.18; HGB 13.9 gm/dL (11.4-16.0); Luc # (Auto) 0.07; Luc % (Auto) 2; Lymphocytes # (A) 1.2 k/uL (1.0-4.8); Lymphocytes % (A) 23 %; MCH 31.5 pg (25.0-35.0); MCHC 33.3 g/dL (31.0-37.0); MCV 94.6 fL (80.0-100.0); Mean Platelet Volume 8.9; Monocytes # (A) 0.3 k/uL (0-1.0); Monocytes % (A) 5 %; Neutrophils # (A) 3.4 k/uL (1.3-7.7); Neutrophils % (A) 68 %; RBC 4.41 m/uL (3.80-5.40); RDW 12.9 % (11.5-15.5); WBC (Perox) 5.01
[2017-07-12 16:01] LABS: Appearance,Urine Turbid (Clear); Bacteria,Urine Rare /hpf; Bilirubin,Urine Negative (Negative); Glucose,Urine (UA) Negative (Negative); Ketones,Urine Negative (Negative); Leukocyte Esterase,Urine Large (Negative); Mucus,Urine Moderate /hpf; Nitrite,Urine Negative (Negative); Particle Count 29800; Protein,Urine 1+ (Negative); RBC,Urine 17 /hpf (0-5); Specific Gravity,Urine 1.025 (1.001-1.035); Squamous Epithelial Cell,Urine 66 /hpf (0-4); UA Billing (MACRO vs. MICRO) MICRO; WBC,Urine 35 /hpf (0-5)
[2017-07-12 16:11] LABS: Partial Thromboplastin Time 22.9 sec (22.0-30.0); Prothrombin Time 10.3 sec (9.0-12.0)
[2017-07-12 16:13] VITALS: RESP 18
[2017-07-12 16:13] LABS: ALT 40 U/L (9-52); AST 26 U/L (14-36); Alkaline Phosphatase 69 U/L (38-126); Amylase 66 U/L (30-110); Anion Gap 6 mmol/L; Blood Urea Nitrogen 10 mg/dL (7-17); Calcium 8.7 mg/dL (8.4-10.2); Carbon Dioxide 22 mmol/L (22-30); Chloride 108 mmol/L (98-107); Glucose 99 mg/dL (74-99); Non-African American GFR(MDRD) >60 (>60 ml/min/1.73 sqM); Potassium 3.9 mmol/L (3.5-5.1); Sodium 136 mmol/L (137-145); Total Bilirubin 0.2 mg/dL (0.2-1.3); Total Protein 5.3 g/dL (6.3-8.2)
[2017-07-12] MEDS ORDERED: PANTOPRAZOLE 40 MG/10 ML VIAL IVP STA (16:59)
[2017-07-12 17:26] VITALS: BP 87/55; PULSE 79; TEMP 98.6
== END 2017-07-12 17:26 | disposition home or self-care (01) ==
LOC: EC 14:50
DX: K29.70 Gastritis, unspecified, without bleeding (principal); K29.80 Duodenitis without bleeding; M79.7 Fibromyalgia; M19.90 Unspecified osteoarthritis, unspecified site; E07.9 Disorder of thyroid, unspecified; G40.909 Epilepsy, unspecified, not intractable, without status epilepticus; F31.9 Bipolar disorder, unspecified; F20.9 Schizophrenia, unspecified; F41.0 Panic disorder [episodic paroxysmal anxiety]; F17.200 Nicotine dependence, unspecified, uncomplicated; Z90.49 Acquired absence of other specified parts of digestive tract; Z98.84 Bariatric surgery status; Z88.1 Allergy status to other antibiotic agents; Z88.5 Allergy status to narcotic agent; Z91.048 Other nonmedicinal substance allergy status; Z79.899 Other long term (current) drug therapy
CPT/HCPCS: 99284; 96374; 96375 ×3; 96361; 36415; 80053; 82150; 83605; 83690; 85025; 85610; 85730; 81001; 87040; 74000; J1200; J2765; J1170; C9113

== ENCOUNTER 2017-07-31 18:51 | Emergency (ER) | payer OTHER ==
[2017-07-31 19:03] VITALS: BP 104/64; PULSE 68; RESP 20; TEMP 97.8
[2017-07-31] MEDS ORDERED: KETOROLAC 60 MG/2 ML VIAL IM STA (19:11)
[2017-07-31] MEDS ORDERED: ORPHENADRINE 30 MG/ML 2 ML VIAL IM STA (19:11)
--- NOTE | 2017-07-31 19:15 | ED ---
Back Pain HPI - General Chief Complaint: Back Pain/Injury Stated Complaint: Back strain Time Seen by Provider: 07/31/17 19:06 Source: patient, RN notes reviewed Limitations: no limitations - History of Present Illness Initial Comments: This a 37-year-old female presents emergency Department chief complaint of low back pain. Patient states she has chronic back pain but states that yesterday she was lifting a large TV by herself and states that she felt a hole on the right several low back. Patient denies any bowel, bladder incontinence or retention. She states that she has pain from her right low back into her right buttocks region. She states that she's had problems with this in the past. She states that she is on a pain contract with [facility] in which she's takes [place] 10/325 4 times daily. Patient denies any abdominal pain including nausea , vomiting, diarrhea constipation. Patient symptoms are worse with movement better at rest - Related Data Home Medications Medication Instructions Recorded Confirmed Levothyroxine Sodium [Synthroid] 300 mcg PO DAILY 09/23/14 07/31/17 Ibuprofen [Motrin] 800 mg PO Q8HR PRN 05/02/16 07/31/17 Ferrous Sulfate [Feosol] 325 mg PO BID 03/03/17 07/31/17 lamoTRIgine [LaMICtal] 200 mg PO HS 03/27/17 07/31/17 ARIPiprazole [Abilify] 10 mg PO HS 07/09/17 07/31/17 Cholecalciferol [Vitamin D3] 5,000 unit PO DAILY 07/09/17 07/31/17 Magnesium Oxide [Mag-Ox] 250 mg PO DAILY 07/09/17 07/31/17 OXcarbazepine [Trileptal] 300 mg PO BID 07/09/17 07/31/17 OXcarbazepine [Trileptal] 600 mg PO BID 07/09/17 07/31/17 Paliperidone IM [Invega Sustenna] 156 mg IM Q30D 07/09/17 07/31/17 QUEtiapine [SEROquel] 100 mg PO HS 07/09/17 07/31/17 Sertraline [Zoloft] 200 mg PO DAILY 07/09/17 07/31/17 busPIRone HCL [Buspar] 7.5 mg PO BID 07/09/17 07/31/17 Hydrocodone/Acetaminophen [[place] 1 tab PO Q6HR PRN 07/12/17 07/31/17 5-325] Previous Rx's Medication Instructions Recorded Gabapentin [Neurontin] 800 mg PO TID #90 tablet 06/19/15 lamoTRIgine [LaMICtal] 50 mg PO DAILY #30 tab 03/29/17 Ondansetron Odt [Zofran Odt] 4 mg PO Q8HR PRN #10 tab 07/10/17 Ondansetron Odt [Zofran Odt] 4 mg PO Q8HR PRN #12 tab 07/12/17 Sucralfate [Carafate] 1 gm PO BID #20 tablet 07/12/17 Cyclobenzaprine [Flexeril] 10 mg PO TID PRN #15 tab 07/31/17 Allergies Allergy/AdvReac Type Severity Reaction Status Date / Time ciprofloxacin [From Cipro] Allergy Unknown Rash/Hives Verified 07/31/17 19:04 morphine Allergy Unknown Anaphylaxis Verified 07/31/17 19:04 nitrofurantoin Allergy Unknown Rash/Hives Verified 07/31/17 19:04 [From Macrobid] nitrofurantoin Allergy Unknown Rash/Hives Verified 07/31/17 19:04 macrocrystalline [From Macrobid] sulfamethoxazole Allergy Unknown Rash/Hives Verified 07/31/17 19:04 [From Bactrim] trimethoprim [From Bactrim] Allergy Unknown Rash/Hives Verified 07/31/17 19:04 adhesive tape Allergy Rash/Hives Verified 07/31/17 19:04 PAPER TAPE Allergy PEELS Uncoded 07/31/17 19:04 SKIN,RASH STERI STRIPS Allergy RASH, Uncoded 07/31/17 19:04 PEELS SKIN Review of Systems ROS Statement: Those systems with pertinent positive or pertinent negative responses have been documented in the HPI. ROS Other: All systems not noted in ROS Statement are negative. Past Medical History Past Medical History: Fibromyalgia, Osteoarthritis (OA), Seizure Disorder, Thyroid Disorder Additional Past Medical History / Comment(s): Seizures, DDD lumbar, heniated discs lumbar and cervical, fibromyalgia, IBS, hypothryoidism, migraines, Fx knee 09/2015-healed with brace, L foot fractured a total of 5 times-had surgery with screws placed. 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 Past Anesthesia/Blood Transfusion Reactions: No Reported Reaction Past Psychological History: Anxiety, Bipolar, Depression, Panic Disorder, Schizophrenia Smoking Status: Current every day smoker Past Alcohol Use History: None Reported Past Drug Use History: None Reported - Past Family History Father Family Medical History: Hypertension Additional Family Medical History / Comment(s): Father is about 53 yrs old and has back problems. Mother Family Medical History: Diabetes Mellitus Additional Family Medical History / Comment(s): Mother is about 53 yrs old General Exam Limitations: no limitations General appearance: alert, in no apparent distress Head exam: Present: atraumatic, normocephalic, normal inspection Eye exam: Present: normal appearance, PERRL, EOMI. Absent: scleral icterus, conjunctival injection, periorbital swelling Neck exam: Present: normal inspection, full ROM. Absent: tenderness, meningismus, lymphadenopathy Respiratory exam: Present: normal lung sounds bilaterally. Absent: respiratory distress, wheezes, rales, rhonchi, stridor Cardiovascular Exam: Present: regular rate, normal rhythm, normal heart sounds. Absent: systolic murmur, diastolic murmur, rubs, gallop, clicks GI/Abdominal exam: Present: soft, normal bowel sounds. Absent: distended, tenderness, guarding, rebound, rigid Extremities exam: Present: other (Lower extremity strength equal bilaterally 5/ 5 neurovascular intact equal color and warmth) Back exam: Present: full ROM, tenderness (Mild tenderness right lumbar region), paraspinal tenderness, other (Pain with right straight leg raise). Absent: vertebral tenderness Neurological exam: Present: alert, CN II-XII intact, reflexes normal. Absent: motor sensory deficit Skin exam: Present: warm, dry, intact, normal color. Absent: rash Course Vital Signs 07/31/17 19:01 Temperature 97.8 F Pulse Rate 68 Respiratory 20 Rate Blood Pressure 104/64 O2 Sat by Pulse 98 Oximetry Medical Decision Making - Medical Decision Making 37-year-old female presented for acute on chronic low back pain. Patient has no red flag symptoms on neurological deficits. Patient is a lumbar strain. Patient will continue her [place]. Patient we given shot of Toradol in the emergency Department and discharged on Flexeril. Return parameters were discussed. Disposition Clinical Impression: Strain of lumbar region Disposition: HOME SELF-CARE Condition: Stable Instructions: Acute Low Back Pain (ED) Additional Instructions: Please return to the Emergency Department if symptoms worsen or any other concerns. Prescriptions: Cyclobenzaprine [Flexeril] 10 mg PO TID PRN #15 tab PRN Reason: Muscle Spasm Referrals: None,Stated [Primary Care Provider] - 1-2 days Time of Disposition: 19:15
== END 2017-07-31 19:37 | disposition home or self-care (01) ==
LOC: EC 18:51
DX: S39.012A Strain of muscle, fascia and tendon of lower back, initial encounter (principal); G40.909 Epilepsy, unspecified, not intractable, without status epilepticus; E03.9 Hypothyroidism, unspecified; F31.9 Bipolar disorder, unspecified; F20.9 Schizophrenia, unspecified; F41.9 Anxiety disorder, unspecified; F17.200 Nicotine dependence, unspecified, uncomplicated; Z88.1 Allergy status to other antibiotic agents; Z88.5 Allergy status to narcotic agent; Z88.2 Allergy status to sulfonamides; Z91.048 Other nonmedicinal substance allergy status; Z79.899 Other long term (current) drug therapy; X50.0XXA Overexertion from strenuous movement or load, initial encounter; Y93.89 Activity, other specified
CPT/HCPCS: 99283; 96372 ×2; J2360; J1885

== ENCOUNTER 2017-08-12 03:38 | Emergency (ER) | payer OTHER ==
[2017-08-12 03:43] VITALS: RESP 18
[2017-08-12] MEDS ORDERED: SODIUM CHLORIDE 0.9% 500 ML IV STA (04:00)
[2017-08-12] MEDS ORDERED: diphenhydrAMINE 50 MG/ML 1 ML VIAL IVP STA (04:01)
[2017-08-12] MEDS ORDERED: METOCLOPRAMIDE 5 MG/ML 2 ML VIAL IVP STA (04:01)
[2017-08-12] MEDS ORDERED: KETOROLAC 30 MG/ML 1 ML VIAL IVP STA (04:01)
[2017-08-12 04:13] LABS: Basophils % (A) 1 %; CH 32.3; CHCM 33.2; Eosinophils # (A) 0.2 k/uL (0-0.7); Eosinophils % (A) 4 %; HCT 41.6 % (34.0-46.0); HDW 2.16; HGB 13.3 gm/dL (11.4-16.0); Luc % (Auto) 2; Lymphocytes % (A) 36 %; MCH 31.3 pg (25.0-35.0); MCV 97.8 fL (80.0-100.0); Mean Platelet Volume 9.5; Monocytes # (A) 0.3 k/uL (0-1.0); Monocytes % (A) 5 %; Neutrophils # (A) 2.9 k/uL (1.3-7.7); Neutrophils % (A) 54 %; RBC 4.25 m/uL (3.80-5.40); RDW 14.2 % (11.5-15.5); WBC 5.5 k/uL (3.8-10.6); WBC (Perox) 6.04
[2017-08-12 04:20] LABS: ALT 42 U/L (9-52); AST 23 U/L (14-36); Alkaline Phosphatase 84 U/L (38-126); Anion Gap 8 mmol/L; Blood Urea Nitrogen 8 mg/dL (7-17); Calcium 8.7 mg/dL (8.4-10.2); Carbon Dioxide 23 mmol/L (22-30); Chloride 100 mmol/L (98-107); Glucose 83 mg/dL (74-99); Non-African American GFR(MDRD) >60 (>60 ml/min/1.73 sqM); Potassium 3.5 mmol/L (3.5-5.1); Sodium 131 mmol/L (137-145); Total Bilirubin 0.1 mg/dL (0.2-1.3); Total Protein 5.8 g/dL (6.3-8.2)
[2017-08-12 04:44] VITALS: BP 134/67; PULSE 74
--- NOTE | 2017-08-12 05:06 | ED ---
Seizure HPI - General Chief Complaint: Seizure Stated Complaint: Seizure Time Seen by Provider: 08/12/17 03:45 Source: patient, family Mode of arrival: wheelchair Limitations: no limitations - History of Present Illness Initial Comments: This patient is a 37-year-old woman who presents with complaint that she states she had a seizure. Patient has history of seizure disorder and states that she has been taking her medicines as scheduled. Patient states that she has had about 3 days of a migraine headache, and that she has been sleeping well and she states that this sometimes does trigger her seizures. She indicates the headache is typical of her migraines. His right occipital, throbbing, and severe. She denies any symptoms that are atypical of her migraines. It has come on gradually and progressed over 3 days, rather than being a thunderclap type headache. MD Complaint: seizure -: minutes(s) Description of Episode: tonic-clonic movement -: second(s) Witnessed: yes - by bystander Trauma: No Seizure History: known seizure disorder Place: home Possible Precipitating Event: lack of sleep Associated Symptoms: other (Migraine) - Related Data Home Medications Medication Instructions Recorded Confirmed Levothyroxine Sodium [Synthroid] 300 mcg PO DAILY 09/23/14 08/12/17 Ibuprofen [Motrin] 800 mg PO Q8HR PRN 05/02/16 08/12/17 Ferrous Sulfate [Feosol] 325 mg PO BID 03/03/17 08/12/17 lamoTRIgine [LaMICtal] 200 mg PO HS 03/27/17 08/12/17 ARIPiprazole [Abilify] 10 mg PO HS 07/09/17 08/12/17 Cholecalciferol [Vitamin D3] 5,000 unit PO DAILY 07/09/17 08/12/17 Magnesium Oxide [Mag-Ox] 250 mg PO DAILY 07/09/17 08/12/17 OXcarbazepine [Trileptal] 300 mg PO BID 07/09/17 08/12/17 OXcarbazepine [Trileptal] 600 mg PO BID 07/09/17 08/12/17 Paliperidone IM [Invega Sustenna] 156 mg IM Q30D 07/09/17 08/12/17 QUEtiapine [SEROquel] 100 mg PO HS 07/09/17 08/12/17 Sertraline [Zoloft] 200 mg PO DAILY 07/09/17 08/12/17 busPIRone HCL [Buspar] 7.5 mg PO BID 07/09/17 08/12/17 Hydrocodone/Acetaminophen [[place] 1 tab PO Q6HR PRN 07/12/17 08/12/17 5-325] Previous Rx's Medication Instructions Recorded Gabapentin [Neurontin] 800 mg PO TID #90 tablet 06/19/15 lamoTRIgine [LaMICtal] 50 mg PO DAILY #30 tab 03/29/17 Ondansetron Odt [Zofran Odt] 4 mg PO Q8HR PRN #10 tab 07/10/17 Ondansetron Odt [Zofran Odt] 4 mg PO Q8HR PRN #12 tab 07/12/17 Sucralfate [Carafate] 1 gm PO BID #20 tablet 07/12/17 Cyclobenzaprine [Flexeril] 10 mg PO TID PRN #15 tab 07/31/17 Allergies Allergy/AdvReac Type Severity Reaction Status Date / Time ciprofloxacin [From Cipro] Allergy Unknown Rash/Hives Verified 08/12/17 03:43 morphine Allergy Unknown Anaphylaxis Verified 08/12/17 03:43 nitrofurantoin Allergy Unknown Rash/Hives Verified 08/12/17 03:43 [From Macrobid] nitrofurantoin Allergy Unknown Rash/Hives Verified 08/12/17 03:43 macrocrystalline [From Macrobid] sulfamethoxazole Allergy Unknown Rash/Hives Verified 08/12/17 03:43 [From Bactrim] trimethoprim [From Bactrim] Allergy Unknown Rash/Hives Verified 08/12/17 03:43 adhesive tape Allergy Rash/Hives Verified 08/12/17 03:43 PAPER TAPE Allergy PEELS Uncoded 08/12/17 03:43 SKIN,RASH STERI STRIPS Allergy RASH, Uncoded 08/12/17 03:43 PEELS SKIN Review of Systems ROS Statement: Those systems with pertinent positive or pertinent negative responses have been documented in the HPI. ROS Other: All systems not noted in ROS Statement are negative. Constitutional: Denies: fever, chills, weakness Eyes: Denies: vision change Respiratory: Denies: cough, dyspnea Cardiovascular: Denies: chest pain Gastrointestinal: Reports: nausea. Denies: abdominal pain, vomiting, diarrhea Musculoskeletal: Denies: back pain Skin: Denies: rash Neurological: Reports: headache. Denies: weakness, numbness, paresthesias, confusion, vertigo Past Medical History Past Medical History: Fibromyalgia, Osteoarthritis (OA), Seizure Disorder, Thyroid Disorder Additional Past Medical History / Comment(s): Seizures, DDD lumbar, heniated discs lumbar and cervical, fibromyalgia, IBS, hypothryoidism, migraines, Fx knee 09/2015-healed with brace, L foot fractured a total of 5 times-had surgery with screws placed. 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 Past Anesthesia/Blood Transfusion Reactions: No Reported Reaction Past Psychological History: Anxiety, Bipolar, Depression, Panic Disorder, Schizophrenia Smoking Status: Current every day smoker Past Alcohol Use History: None Reported Past Drug Use History: None Reported - Past Family History Father Family Medical History: Hypertension Additional Family Medical History / Comment(s): Father is about 53 yrs old and has back problems. Mother Family Medical History: Diabetes Mellitus Additional Family Medical History / Comment(s): Mother is about 53 yrs old General Exam Limitations: no limitations General appearance: alert, in no apparent distress Head exam: Present: atraumatic, normocephalic, normal inspection Eye exam: Present: normal appearance, PERRL, EOMI. Absent: scleral icterus, conjunctival injection Neck exam: Present: normal inspection, full ROM. Absent: tenderness, meningismus Respiratory exam: Present: normal lung sounds bilaterally. Absent: respiratory distress, wheezes, rales, rhonchi, stridor Cardiovascular Exam: Present: regular rate, normal rhythm, normal heart sounds. Absent: systolic murmur, diastolic murmur, rubs, gallop GI/Abdominal exam: Present: soft. Absent: distended, tenderness, guarding Extremities exam: Present: normal inspection, normal capillary refill. Absent: pedal edema, calf tenderness Neurological exam: Present: alert, oriented X3, CN II-XII intact. Absent: motor sensory deficit Skin exam: Present: warm, dry, intact, normal color. Absent: rash Course Vital Signs 08/12/17 08/12/17 08/12/17 03:40 04:43 05:14 Temperature 97.3 F L 98 F Pulse Rate 77 74 Respiratory 18 18 Rate Blood Pressure 120/87 134/67 O2 Sat by Pulse 100 99 Oximetry Medical Decision Making - Medical Decision Making Patient has had significant relief of her symptoms following standard migraine medication. She was able to sleep following medication administration. Following return of her studies I reevaluated the patient. She had returned to baseline neurologically. She states the pain had decreased significantly. The patient does not currently have a neurologist, and she'll be referred follow-up with Dr. Olson. To review with her primary physician the anticonvulsant levels that are send out labs. Discussed return parameters - Lab Data Result diagrams: 08/12/17 03:55 08/12/17 03:55 Lab Results 08/12/17 08/12/17 Range/Units 03:55 03:55 WBC 5.5 (3.8-10.6) k/uL RBC 4.25 (3.80-5.40) m/uL Hgb 13.3 (11.4-16.0) gm/dL Hct 41.6 (34.0-46.0) % MCV 97.8 (80.0-100.0) fL MCH 31.3 (25.0-35.0) pg MCHC 32.0 (31.0-37.0) g/dL RDW 14.2 (11.5-15.5) % Plt Count 134 L (150-450) k/uL Neutrophils % 54 % Lymphocytes % 36 % Monocytes % 5 % Eosinophils % 4 % Basophils % 1 % Neutrophils # 2.9 (1.3-7.7) k/uL Lymphocytes # 2.0 (1.0-4.8) k/uL Monocytes # 0.3 (0-1.0) k/uL Eosinophils # 0.2 (0-0.7) k/uL Basophils # 0.0 (0-0.2) k/uL Sodium 131 L (137-145) mmol/L Potassium 3.5 (3.5-5.1) mmol/L Chloride 100 (98-107) mmol/L Carbon Dioxide 23 (22-30) mmol/L Anion Gap 8 mmol/L BUN 8 (7-17) mg/dL Creatinine 0.60 (0.52-1.04) mg/dL Est GFR (MDRD) Af Amer >60 (>60 ml/min/1.73 sqM) Est GFR (MDRD) Non-Af >60 (>60 ml/min/1.73 sqM) Glucose 83 (74-99) mg/dL Calcium 8.7 (8.4-10.2) mg/dL Total Bilirubin 0.1 L (0.2-1.3) mg/dL AST 23 (14-36) U/L ALT 42 (9-52) U/L Alkaline Phosphatase 84 (38-126) U/L Total Protein 5.8 L (6.3-8.2) g/dL Albumin 3.3 L (3.5-5.0) g/dL - EKG Data -: EKG Interpreted by Mo EKG shows normal: sinus rhythm, axis (Normal), intervals (Normal), QRS complexes (Normal), ST-T waves (Normal) Rate: normal (Rate 76 BPM) Interpretation: normal EKG Disposition Clinical Impression: Seizure, Migraine headache Disposition: HOME SELF-CARE Condition: Good Instructions: Migraine Headache (ED), Recurrent Seizures in Adults (ED) Referrals: Taylor Corley MD [Primary Care Provider] - 1-2 days Nichole Olson MD [STAFF PHYSICIAN] - 1-2 days
[2017-08-12 05:17] VITALS: TEMP 98
[2017-08-14 07:11] LABS: Lamotrigine (Lamictal) 3.7 ug/mL (2.0-15.0)
== END 2017-08-12 05:14 | disposition home or self-care (01) ==
LOC: EC 03:38
DX: R56.9 Unspecified convulsions (principal); G43.909 Migraine, unspecified, not intractable, without status migrainosus; E03.9 Hypothyroidism, unspecified; M79.7 Fibromyalgia; F41.9 Anxiety disorder, unspecified; F32.9 Major depressive disorder, single episode, unspecified; F20.9 Schizophrenia, unspecified; F17.200 Nicotine dependence, unspecified, uncomplicated; Z79.899 Other long term (current) drug therapy; Z88.1 Allergy status to other antibiotic agents; Z88.5 Allergy status to narcotic agent; Z88.8 Allergy status to other drugs, medicaments and biological substances; Z88.2 Allergy status to sulfonamides; Z91.048 Other nonmedicinal substance allergy status
CPT/HCPCS: 36415; 93005; 80053; 80175; 80183; 85025; 99284; 96374; 96375 ×2; 96361; J1200; J2765; J1885

== ENCOUNTER 2017-10-09 15:59 | Emergency (ER) | payer OTHER ==
--- NOTE | 2017-10-09 18:34 | ED ---
General Adult HPI - General Chief complaint: Seizure Stated complaint: seizures/hit head Time Seen by Provider: 10/09/17 18:15 Source: patient, RN notes reviewed Mode of arrival: wheelchair Limitations: no limitations - History of Present Illness Initial comments: 37-year-old female presents to the emergency department with a chief complaint of seizure. Patient has a history of epilepsy and has had 2 seizures in the last 2 days. She has been postictal after the seizure. She had a witnessed head injury and states she has a mild headache so they were concerned. She denies any nausea or vomiting. They were concerned due to the patient's continued headaches. They should be evaluated. She states that she has been using her medications for seizures as prescribed. She denies any cough cold Raynaud's or any concern for infection at this time. Patient denies any recent fever, chills, shortness of breath, chest pain, back pain, abdominal pain, nausea vomiting, numbness or tingling, dysuria or hematuria, constipation or diarrhea, visual changes, or any other current symptoms. - Related Data Home Medications Medication Instructions Recorded Confirmed Levothyroxine Sodium [Synthroid] 300 mcg PO DAILY 09/23/14 10/09/17 Ibuprofen [Motrin] 800 mg PO Q8HR PRN 05/02/16 10/09/17 Ferrous Sulfate [Feosol] 325 mg PO DAILY 03/03/17 10/09/17 lamoTRIgine [LaMICtal] 200 mg PO HS 03/27/17 10/09/17 Magnesium Oxide [Mag-Ox] 250 mg PO DAILY 07/09/17 10/09/17 OXcarbazepine [Trileptal] 300 mg PO BID 07/09/17 10/09/17 OXcarbazepine [Trileptal] 600 mg PO BID 07/09/17 10/09/17 DULoxetine HCL [Cymbalta] 60 mg PO DAILY 10/09/17 10/09/17 Paliperidone IM [Invega Sustenna] 234 mg IM Q30D 10/09/17 10/09/17 Prazosin [Minipress] 1 mg PO HS 10/09/17 10/09/17 Previous Rx's Medication Instructions Recorded Gabapentin [Neurontin] 800 mg PO TID #90 tablet 06/19/15 lamoTRIgine [LaMICtal] 50 mg PO DAILY #30 tab 05/17/17 Allergies Allergy/AdvReac Type Severity Reaction Status Date / Time ciprofloxacin [From Cipro] Allergy Unknown Rash/Hives Verified 10/09/17 18:19 morphine Allergy Unknown Anaphylaxis Verified 10/09/17 18:19 nitrofurantoin Allergy Unknown Rash/Hives Verified 10/09/17 18:19 [From Macrobid] nitrofurantoin Allergy Unknown Rash/Hives Verified 10/09/17 18:19 macrocrystalline [From Macrobid] sulfamethoxazole Allergy Unknown Rash/Hives Verified 10/09/17 18:19 [From Bactrim] trimethoprim [From Bactrim] Allergy Unknown Rash/Hives Verified 10/09/17 18:19 adhesive tape Allergy Rash/Hives Verified 10/09/17 18:19 PAPER TAPE Allergy PEELS Uncoded 10/09/17 16:17 SKIN,RASH STERI STRIPS Allergy RASH, Uncoded 10/09/17 16:17 PEELS SKIN Review of Systems ROS Statement: Those systems with pertinent positive or pertinent negative responses have been documented in the HPI. ROS Other: All systems not noted in ROS Statement are negative. Past Medical History Past Medical History: Fibromyalgia, Osteoarthritis (OA), Seizure Disorder, Thyroid Disorder Additional Past Medical History / Comment(s): Seizures, DDD lumbar, heniated discs lumbar and cervical, fibromyalgia, IBS, hypothryoidism, migraines, Fx knee 09/2015-healed with brace, L foot fractured a total of 5 times-had surgery with screws placed. 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 Past Anesthesia/Blood Transfusion Reactions: No Reported Reaction Past Psychological History: Anxiety, Bipolar, Depression, Panic Disorder, Schizophrenia Smoking Status: Current every day smoker Past Alcohol Use History: None Reported Past Drug Use History: None Reported - Past Family History Father Family Medical History: Hypertension Additional Family Medical History / Comment(s): Father is about 53 yrs old and has back problems. Mother Family Medical History: Diabetes Mellitus Additional Family Medical History / Comment(s): Mother is about 53 yrs old General Exam - General Exam Comments Initial Comments: General: The patient is awake and alert, in no distress, and does not appear acutely ill. Eye: Pupils are equal, round and reactive to light, extra-ocular movements are intact; there is normal conjunctiva bilaterally. No signs of icterus. Ears, nose, mouth and throat: There are moist mucous membranes. Neck: The neck is supple, there is no tenderness. Cardiovascular: There is a regular rate and rhythm. No murmur, rub or gallop is appreciated. Respiratory: Lungs are clear to auscultation, respirations are non-labored, breath sounds are equal. No wheezes, stridor, rales, or rhonchi. Gastrointestinal: Soft, non-distended, non-tender abdomen without masses or organomegaly noted. There is no rebound or guarding present. No CVA tenderness. Bowel sounds are unremarkable. Back: There is no tenderness to palpation in the midline. There is no obvious deformity. No rashes noted. Musculoskeletal: Normal ROM, no tenderness, There is no pedal edema. There is no calf tenderness or swelling. Sensation intact. Pulses equal bilaterally 2+. Neurological: CN II-XII intact, There are no obvious motor or sensory deficits. Coordination appears grossly intact. Speech is normal. Skin: Skin is warm and dry and no rashes or lesions are noted. Psychiatric: Cooperative, appropriate mood & affect, normal judgment. Limitations: no limitations Course Vital Signs 10/09/17 10/09/17 16:14 19:17 Temperature 97.8 F 98.4 F Pulse Rate 85 73 Respiratory 20 18 Rate Blood Pressure 127/80 104/64 O2 Sat by Pulse 98 98 Oximetry EKG Findings - EKG Comments: EKG Findings:: normal sinus rhythm 74 bpm, normal axis, no atopy, no S-T depressions or elevations, Medical Decision Making - Medical Decision Making 37-year-old female presents emergency Department chief complaint of seizure. At this time patient's lab work is been reviewed. At this time we are pending her seizure medications. We did give her Ativan to help with her head discomfort. CAT scan is negative. We discussed follow-up with her doctor return parameters all questions. Patient stated the Nish management this plan. All questions have been answered. They'll be discharged. - Lab Data Result diagrams: 10/09/17 18:48 10/09/17 18:48 Lab Results 10/09/17 10/09/17 10/09/17 Range/Units 18:48 18:48 18:55 WBC 5.1 (3.8-10.6) k/uL RBC 4.27 (3.80-5.40) m/uL Hgb 13.2 (11.4-16.0) gm/dL Hct 41.0 (34.0-46.0) % MCV 96.1 (80.0-100.0) fL MCH 31.0 (25.0-35.0) pg MCHC 32.2 (31.0-37.0) g/dL RDW 13.5 (11.5-15.5) % Plt Count 158 (150-450) k/uL Neutrophils % 59 % Lymphocytes % 30 % Monocytes % 5 % Eosinophils % 4 % Basophils % 1 % Neutrophils # 3.1 (1.3-7.7) k/uL Lymphocytes # 1.5 (1.0-4.8) k/uL Monocytes # 0.3 (0-1.0) k/uL Eosinophils # 0.2 (0-0.7) k/uL Basophils # 0.0 (0-0.2) k/uL Sodium 126 L (137-145) mmol/L Potassium 4.0 (3.5-5.1) mmol/L Chloride 98 (98-107) mmol/L Carbon Dioxide 27 (22-30) mmol/L Anion Gap 1 mmol/L BUN 4 L (7-17) mg/dL Creatinine 0.51 L (0.52-1.04) mg/dL Est GFR (MDRD) Af Amer >60 (>60 ml/min/1.73 sqM) Est GFR (MDRD) Non-Af >60 (>60 ml/min/1.73 sqM) Glucose 89 (74-99) mg/dL Calcium 8.4 (8.4-10.2) mg/dL Phosphorus 2.9 (2.5-4.5) mg/dL Magnesium 1.7 (1.6-2.3) mg/dL Total Bilirubin <0.1 L (0.2-1.3) mg/dL AST 31 (14-36) U/L ALT 44 (9-52) U/L Alkaline Phosphatase 77 (38-126) U/L Total Protein 5.1 L (6.3-8.2) g/dL Albumin 2.8 L (3.5-5.0) g/dL Urine Color Yellow Urine Appearance Clear (Clear) Urine pH 7.5 (5.0-8.0) Ur Specific [place] 1.012 (1.001-1.035) Urine Protein Negative (Negative) Urine Glucose (UA) Negative (Negative) Urine Ketones Negative (Negative) Urine Blood Negative (Negative) Urine Nitrite Negative (Negative) Urine Bilirubin Negative (Negative) Urine Urobilinogen <2.0 (<2.0) mg/dL Ur Leukocyte Esterase Negative (Negative) - Radiology Data Radiology results: report reviewed, image reviewed Disposition Clinical Impression: Generalized seizure Disposition: HOME SELF-CARE Condition: Stable Instructions: Recurrent Seizures in Adults (ED) Additional Instructions: Please use medication as discussed. Please follow up with family doctor if symptoms have not improved over the next two days. Please return to the emergency room if your symptoms increase or worsen or for any other concerns. Referrals: Jason Marrufo DO [Primary Care Provider] - 1-2 days Time of Disposition: 20:00
[2017-10-09 19:06] LABS: Basophils % (A) 1 %; CH 31.4; CHCM 32.8; Eosinophils # (A) 0.2 k/uL (0-0.7); Eosinophils % (A) 4 %; HDW 1.98; HGB 13.2 gm/dL (11.4-16.0); Luc # (Auto) 0.06; Luc % (Auto) 1; Lymphocytes # (A) 1.5 k/uL (1.0-4.8); Lymphocytes % (A) 30 %; MCHC 32.2 g/dL (31.0-37.0); MCV 96.1 fL (80.0-100.0); Monocytes # (A) 0.3 k/uL (0-1.0); Monocytes % (A) 5 %; Neutrophils # (A) 3.1 k/uL (1.3-7.7); Neutrophils % (A) 59 %; RBC 4.27 m/uL (3.80-5.40); RDW 13.5 % (11.5-15.5); WBC 5.1 k/uL (3.8-10.6); WBC (Perox) 5.16
[2017-10-09 19:14] LABS: ALT 44 U/L (9-52); AST 31 U/L (14-36); Alkaline Phosphatase 77 U/L (38-126); Anion Gap 1 mmol/L; Blood Urea Nitrogen 4 mg/dL (7-17); Calcium 8.4 mg/dL (8.4-10.2); Carbon Dioxide 27 mmol/L (22-30); Chloride 98 mmol/L (98-107); Glucose 89 mg/dL (74-99); Magnesium 1.7 mg/dL (1.6-2.3); Non-African American GFR(MDRD) >60 (>60 ml/min/1.73 sqM); Phosphorus 2.9 mg/dL (2.5-4.5); Sodium 126 mmol/L (137-145); Total Bilirubin <0.1 mg/dL (0.2-1.3); Total Protein 5.1 g/dL (6.3-8.2)
[2017-10-09 19:18] LABS: Appearance,Urine Clear (Clear); Bilirubin,Urine Negative (Negative); Glucose,Urine (UA) Negative (Negative); Ketones,Urine Negative (Negative); Leukocyte Esterase,Urine Negative (Negative); Nitrite,Urine Negative (Negative); PH, Urine 7.5 (5.0-8.0); Protein,Urine Negative (Negative); Specific Gravity,Urine 1.012 (1.001-1.035); UA Billing (MACRO vs. MICRO) CHEM; Urobilinogen,Urine <2.0 mg/dL (<2.0)
[2017-10-09 19:20] VITALS: RESP 18
--- NOTE | 2017-10-09 19:34 | CT ---
EXAMINATION TYPE: CT brain wo con DATE OF EXAM: 10/09/2017 COMPARISON: 04/13/2017 HISTORY: Seizure activity with multiple injuries CT DLP: 978.2 mGycm. Automated Exposure Control for Dose Reduction was Utilized. TECHNIQUE: CT scan of the head is performed without contrast. FINDINGS: Ventricles have normal size. There is no mass effect nor midline shift. There is no sign o f intracranial hemorrhage. The calvarium is intact. CONCLUSION: Negative CT scan of the brain. No change.
[2017-10-09] MEDS ORDERED: diphenhydrAMINE 50 MG/ML 1 ML VIAL IVP STA (20:00)
[2017-10-09] MEDS ORDERED: LORazepam 2 MG/ML INJ IV STA (20:00)
[2017-10-09] MEDS ORDERED: KETOROLAC 30 MG/ML 1 ML VIAL IVP STA (20:00)
[2017-10-09 20:35] VITALS: BP 105/69; PULSE 79; TEMP 98.2
== END 2017-10-09 20:34 | disposition home or self-care (01) ==
LOC: EC 15:59
DX: G40.909 Epilepsy, unspecified, not intractable, without status epilepticus (principal); R51 Headache; M79.7 Fibromyalgia; M19.90 Unspecified osteoarthritis, unspecified site; E03.9 Hypothyroidism, unspecified; K58.9 Irritable bowel syndrome, unspecified; F31.9 Bipolar disorder, unspecified; F41.9 Anxiety disorder, unspecified; F20.9 Schizophrenia, unspecified; F17.200 Nicotine dependence, unspecified, uncomplicated; Z79.899 Other long term (current) drug therapy; Z88.1 Allergy status to other antibiotic agents; Z88.5 Allergy status to narcotic agent; Z88.2 Allergy status to sulfonamides; Z91.048 Other nonmedicinal substance allergy status
CPT/HCPCS: 36415; 93005; 80053; 80175; 80183; 83735; 84100; 85025; 81003; 70450; 99284; 96374; 96375 ×2; J2060; J1200; J1885

== ENCOUNTER 2017-11-07 15:42 | Emergency (ER) | payer OTHER ==
[2017-11-07 15:54] VITALS: BP 139/82; PULSE 73; RESP 18; TEMP 98.1
[2017-11-07] MEDS ORDERED: KETOROLAC 30 MG/ML 1 ML VIAL IM STA (16:45)
--- NOTE | 2017-11-07 17:12 | XR ---
PROCEDURE: XR shoulder complete RT, 3 views DATE AND TIME: 11/07/2017 5:02 PM REFERRING PHYSICIAN: Malissa Hartmann CLINICAL INDICATION: PHH, Pain TECHNIQUE: Department protocol. COMPARISON: None FINDINGS: There is no fracture or malalignment. The soft tissues are unremarkable. IMPRESSION: NO ACUTE PROCESS.
--- NOTE | 2017-11-07 17:21 | ED ---
Upper Extremity HPI - General Chief Complaint: Extremity Injury, Upper Stated Complaint: Shoulder Pain/Injury Time Seen by Provider: 11/07/17 16:02 Source: patient Mode of arrival: ambulatory Limitations: no limitations - History of Present Illness Initial Comments: 37-year-old female patient presented to the emergency department today for complaints of right shoulder pain. Patient states that earlier today she was helping her lift a wooden mirror when he dropped it and caused strain on her right shoulder. She states that she did feel a tearing type pain in the shoulder at the time. She states that she is still having severe pain. She states that she is able to move the shoulder somewhat however does not have her full range of motion. Patient does have a history of right rotator cuff repair. She denies any numbness or tingling in the arm. Denies any other injuries. Patient denies any headache, neck pain, back pain, chest pain, shortness of breath, dizziness, weakness, abdominal pain, nausea, vomiting, or difficulties with bowel movements or urination. - Related Data Home Medications Medication Instructions Recorded Confirmed Levothyroxine Sodium [Synthroid] 300 mcg PO DAILY 09/23/14 11/07/17 Ibuprofen [Motrin] 800 mg PO Q8HR PRN 05/02/16 11/07/17 Ferrous Sulfate [Feosol] 325 mg PO DAILY 03/03/17 11/07/17 lamoTRIgine [LaMICtal] 200 mg PO HS 03/27/17 11/07/17 Magnesium Oxide [Mag-Ox] 250 mg PO DAILY 07/09/17 11/07/17 OXcarbazepine [Trileptal] 300 mg PO BID 07/09/17 11/07/17 OXcarbazepine [Trileptal] 600 mg PO BID 07/09/17 11/07/17 DULoxetine HCL [Cymbalta] 60 mg PO DAILY 10/09/17 11/07/17 Paliperidone IM [Invega Sustenna] 234 mg IM Q30D 10/09/17 11/07/17 Prazosin [Minipress] 1 mg PO HS 10/09/17 11/07/17 Previous Rx's Medication Instructions Recorded Gabapentin [Neurontin] 800 mg PO TID #90 tablet 06/19/15 lamoTRIgine [LaMICtal] 50 mg PO DAILY #30 tab 03/29/17 Ibuprofen [Motrin] 600 mg PO Q8HR PRN #30 tab 11/07/17 Allergies Allergy/AdvReac Type Severity Reaction Status Date / Time ciprofloxacin [From Cipro] Allergy Unknown Rash/Hives Verified 11/07/17 16:23 morphine Allergy Unknown Anaphylaxis Verified 11/07/17 16:23 nitrofurantoin Allergy Unknown Rash/Hives Verified 11/07/17 16:23 [From Macrobid] nitrofurantoin Allergy Unknown Rash/Hives Verified 11/07/17 16:23 macrocrystalline [From Macrobid] sulfamethoxazole Allergy Unknown Rash/Hives Verified 11/07/17 16:23 [From Bactrim] trimethoprim [From Bactrim] Allergy Unknown Rash/Hives Verified 11/07/17 16:23 adhesive tape Allergy Rash/Hives Verified 11/07/17 16:23 tramadol [From Ultram] AdvReac Seizures Verified 11/07/17 16:23 PAPER TAPE Allergy PEELS Uncoded 11/07/17 15:54 SKIN,RASH STERI STRIPS Allergy RASH, Uncoded 11/07/17 15:54 PEELS SKIN Review of Systems ROS Statement: Those systems with pertinent positive or pertinent negative responses have been documented in the HPI. ROS Other: All systems not noted in ROS Statement are negative. Past Medical History Past Medical History: Fibromyalgia, Osteoarthritis (OA), Seizure Disorder, Thyroid Disorder Additional Past Medical History / Comment(s): Seizures, DDD lumbar, heniated discs lumbar and cervical, fibromyalgia, IBS, hypothryoidism, migraines, Fx knee 09/2015-healed with brace, L foot fractured a total of 5 times-had surgery with screws placed. 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 Past Anesthesia/Blood Transfusion Reactions: No Reported Reaction Past Psychological History: Anxiety, Bipolar, Depression, Panic Disorder, Schizophrenia Smoking Status: Current every day smoker Past Alcohol Use History: None Reported Past Drug Use History: None Reported - Past Family History Father Family Medical History: Hypertension Additional Family Medical History / Comment(s): Father is about 53 yrs old and has back problems. Mother Family Medical History: Diabetes Mellitus Additional Family Medical History / Comment(s): Mother is about 53 yrs old General Exam Limitations: no limitations General appearance: alert, in no apparent distress, other (This is a well- developed, well-nourished adult female patient in no acute distress. Vital signs upon presentation are temperature 98.1F, pulse 73, respirations 18, blood pressure 139/82, pulse ox 99% on room air.) Eye exam: Present: normal appearance, PERRL, EOMI. Absent: scleral icterus, conjunctival injection, periorbital swelling ENT exam: Present: normal exam, normal oropharynx, mucous membranes moist Respiratory exam: Present: normal lung sounds bilaterally. Absent: respiratory distress, wheezes, rales, rhonchi, stridor Cardiovascular Exam: Present: regular rate, normal rhythm, normal heart sounds. Absent: systolic murmur, diastolic murmur, rubs, gallop, clicks GI/Abdominal exam: Present: soft, normal bowel sounds. Absent: distended, tenderness, guarding, rebound, rigid Extremities exam: Present: normal inspection, full ROM, tenderness (Right anterior shoulder tenderness), normal capillary refill, other (Skin into the right upper extremity is pink, warm, and dry. Cap refills less than than 3 seconds. Radial pulses are 2+ and equal bilaterally. Patient does have 90 abduction to the right arm. Patient refuses to perform forward flexion or hyperextension.). Absent: pedal edema, joint swelling, calf tenderness Neurological exam: Present: alert, oriented X3, CN II-XII intact Psychiatric exam: Present: normal affect, normal mood Skin exam: Present: warm, dry, intact, normal color. Absent: rash Course Vital Signs 11/07/17 15:53 Temperature 98.1 F Pulse Rate 73 Respiratory 18 Rate Blood Pressure 139/82 O2 Sat by Pulse 99 Oximetry Medical Decision Making - Medical Decision Making 37-year-old female patient presented to the emergency department today for evaluation of right shoulder pain. Physical examination revealed approximately 90 abduction of the right shoulder, patient refused forward flexion or hyperextension. Skin was intact, pink, warm, and dry. Cap refills less than 3 seconds. Radial pulses are 2+ and equal bilaterally. X-ray was negative for any acute fracture or dislocation. I did explain to patient that this could be a muscular or ligamentous injury. She is instructed to follow-up with her orthopedic doctor, she reports that she goes to see Dr. Holland. She is instructed to take [id number] Tylenol and her prescription of ibuprofen for pain control. She is instructed to perform gentle range of motion exercises as tolerated. She is instructed to return here immediate for any new , worsening, or concerning symptoms. She verbalizes understanding and agrees with this plan. - Radiology Data Radiology results: report reviewed, image reviewed 3 views of the right shoulder so no fracture or malalignment. Soft tissues are unremarkable. Impression by Dr. Oseguera shows no acute process. Disposition Clinical Impression: Right shoulder strain Disposition: HOME SELF-CARE Condition: Good Instructions: Rotator Cuff Injury (ED) Additional Instructions: Rest shoulder. Follow-up with orthopedics as soon as possible for reevaluation. Take medications as directed. Return here immediately for any new, worsening, or concerning symptoms. Prescriptions: Ibuprofen [Motrin] 600 mg PO Q8HR PRN #30 tab PRN Reason: Pain Referrals: Jason Marrufo DO [Primary Care Provider] - 1-2 days Lamont Holland MD [REFERRING] - 1-2 days Time of Disposition: 17:20
== END 2017-11-07 17:33 | disposition home or self-care (01) ==
LOC: EC 15:42
DX: S46.911A Strain of unspecified muscle, fascia and tendon at shoulder and upper arm level, right arm, initial encounter (principal); M19.90 Unspecified osteoarthritis, unspecified site; M79.7 Fibromyalgia; G40.909 Epilepsy, unspecified, not intractable, without status epilepticus; E07.9 Disorder of thyroid, unspecified; F20.9 Schizophrenia, unspecified; F31.9 Bipolar disorder, unspecified; F41.0 Panic disorder [episodic paroxysmal anxiety]; F17.200 Nicotine dependence, unspecified, uncomplicated; Z79.899 Other long term (current) drug therapy; Z88.1 Allergy status to other antibiotic agents; Z88.2 Allergy status to sulfonamides; Z88.6 Allergy status to analgesic agent; Z91.048 Other nonmedicinal substance allergy status; X50.0XXA Overexertion from strenuous movement or load, initial encounter
CPT/HCPCS: 73030; 99283; 96372; J1885

== ENCOUNTER 2017-11-14 02:18 | Emergency (ER) | payer OTHER ==
[2017-11-14] MEDS ORDERED: SODIUM CHLORIDE 0.9% 1,000 ML IV STA (03:02)
--- NOTE | 2017-11-14 03:16 | ED ---
Seizure HPI - General Chief Complaint: Seizure Stated Complaint: Seizure Time Seen by Provider: 11/14/17 02:23 Source: patient, EMS Mode of arrival: EMS Limitations: no limitations - History of Present Illness Initial Comments: 37-year-old female patient presents to the emergency department today for evaluation after having 3 seizures at home. Son is at bedside and provides most of the history. He reports that patient had initial seizure around 2 AM, states that it lasted approximately 1 minute. States that with the seizure she did fall backwards off the bed striking her head on the floor. Son states that she woke up and was very confused, Repeating herself over and over again. He states that shortly after she did have another seizure lasting approximately 45 seconds. He states that she did have a third seizure after that lasting approximately 1 minute. He states that a couple seizures in one day is not unusual for her however the fever was abnormal and she was "unresponsive" longer than her usual post ictal state. She is treated with Trileptal and Lamictal for seizures. He reports that she does take her medications as directed. She is complaining of headache and low back pain. She is very drowsy during history and physical but does follow commands. Son denies any loss of bladder control with the seizures. Patient denies any recent rash, fever , chills, shortness breath, chest pain, abdominal pain, nausea, vomiting, diarrhea, constipation, numbness, tingling, dizziness, hematuria, dysuria, urinary urgency, or urinary frequency. - Related Data Home Medications Medication Instructions Recorded Confirmed Levothyroxine Sodium [Synthroid] 300 mcg PO DAILY 09/23/14 11/07/17 Ibuprofen [Motrin] 800 mg PO Q8HR PRN 05/02/16 11/07/17 Ferrous Sulfate [Feosol] 325 mg PO DAILY 03/03/17 11/07/17 lamoTRIgine [LaMICtal] 200 mg PO HS 03/27/17 11/07/17 Magnesium Oxide [Mag-Ox] 250 mg PO DAILY 07/09/17 11/07/17 OXcarbazepine [Trileptal] 300 mg PO BID 07/09/17 11/07/17 OXcarbazepine [Trileptal] 600 mg PO BID 07/09/17 11/07/17 DULoxetine HCL [Cymbalta] 60 mg PO DAILY 10/09/17 11/07/17 Paliperidone IM [Invega Sustenna] 234 mg IM Q30D 10/09/17 11/07/17 Prazosin [Minipress] 1 mg PO HS 10/09/17 11/07/17 Previous Rx's Medication Instructions Recorded Gabapentin [Neurontin] 800 mg PO TID #90 tablet 06/19/15 lamoTRIgine [LaMICtal] 50 mg PO DAILY #30 tab 03/29/17 Ibuprofen [Motrin] 600 mg PO Q8HR PRN #30 tab 11/07/17 Allergies Allergy/AdvReac Type Severity Reaction Status Date / Time ciprofloxacin [From Cipro] Allergy Unknown Rash/Hives Verified 11/14/17 02:36 morphine Allergy Unknown Anaphylaxis Verified 11/14/17 02:36 nitrofurantoin Allergy Unknown Rash/Hives Verified 11/14/17 02:36 [From Macrobid] nitrofurantoin Allergy Unknown Rash/Hives Verified 11/14/17 02:36 macrocrystalline [From Macrobid] sulfamethoxazole Allergy Unknown Rash/Hives Verified 11/14/17 02:36 [From Bactrim] trimethoprim [From Bactrim] Allergy Unknown Rash/Hives Verified 11/14/17 02:36 adhesive tape Allergy Rash/Hives Verified 11/14/17 02:36 tramadol [From Ultram] AdvReac Seizures Verified 11/14/17 02:36 PAPER TAPE Allergy PEELS Uncoded 11/14/17 02:36 SKIN,RASH STERI STRIPS Allergy RASH, Uncoded 11/14/17 02:36 PEELS SKIN Review of Systems ROS Statement: Those systems with pertinent positive or pertinent negative responses have been documented in the HPI. ROS Other: All systems not noted in ROS Statement are negative. Past Medical History Past Medical History: Fibromyalgia, Osteoarthritis (OA), Seizure Disorder, Thyroid Disorder Additional Past Medical History / Comment(s): Seizures, DDD lumbar, heniated discs lumbar and cervical, fibromyalgia, IBS, hypothryoidism, migraines, Fx knee 09/2015-healed with brace, L foot fractured a total of 5 times-had surgery with screws placed. 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 Past Anesthesia/Blood Transfusion Reactions: No Reported Reaction Past Psychological History: Anxiety, Bipolar, Depression, Panic Disorder, Schizophrenia Smoking Status: Current every day smoker Past Alcohol Use History: None Reported Past Drug Use History: None Reported - Past Family History Father Family Medical History: Hypertension Additional Family Medical History / Comment(s): Father is about 53 yrs old and has back problems. Mother Family Medical History: Diabetes Mellitus Additional Family Medical History / Comment(s): Mother is about 53 yrs old General Exam Limitations: no limitations General appearance: in no apparent distress, other (His is a well-developed, well-nourished adult female patient in no acute distress. Vital signs upon presentation are temperature 97.8F, pulse 66, respirations 18, blood pressure 106/61, pulse ox 98% on room air.) Head exam: Present: atraumatic, normocephalic, normal inspection Eye exam: Present: normal appearance, PERRL, EOMI. Absent: scleral icterus, conjunctival injection, nystagmus, periorbital swelling ENT exam: Present: normal exam, normal oropharynx, mucous membranes moist, TM's normal bilaterally Neck exam: Present: normal inspection, full ROM. Absent: tenderness, meningismus, lymphadenopathy Respiratory exam: Present: normal lung sounds bilaterally. Absent: respiratory distress, wheezes, rales, rhonchi, stridor Cardiovascular Exam: Present: regular rate, normal rhythm, normal heart sounds. Absent: systolic murmur, diastolic murmur, rubs, gallop, clicks GI/Abdominal exam: Present: soft, normal bowel sounds. Absent: distended, tenderness, guarding, rebound, rigid Back exam: Absent: vertebral tenderness Neurological exam: Present: oriented X3, CN II-XII intact, other (Follows commands, strength in all 4 extremities is 4/5.). Absent: alert (Drowsy) Psychiatric exam: Present: normal affect, normal mood Skin exam: Present: warm, dry, intact, normal color. Absent: rash Course Vital Signs 11/14/17 11/14/17 11/14/17 02:31 03:29 04:38 Temperature 97.8 F Pulse Rate 66 77 83 Respiratory 18 18 18 Rate Blood Pressure 106/61 105/57 107/59 O2 Sat by Pulse 98 97 96 Oximetry Medical Decision Making - Medical Decision Making 37-year-old female patient presented to the emergency department today for evaluation via EMS after having 3 seizures at home. Physical examination was unremarkable. Patient was drowsy throughout exam however son reports that she did take her nighttime medications which make her sleepy. Patient did strike her head during the first seizure so we did perform computed tomography scan of the brain, which was negative for any acute injury or cranial abnormalities. Labs were obtained and did reveal a sodium level of 130 however this appears to be chronic for the patient. Urinalysis was unremarkable. Urine drug screen was positive for opiates. Patient will be discharged home at this time to follow-up with her neurologist as soon as possible. She is instructed to return here immediately for any new, worsening, or concerning symptoms. Patient and son verbalize understanding and agree with this plan. - Lab Data Result diagrams: 11/14/17 00:27 11/14/17 00:27 Lab Results 11/14/17 11/14/17 11/14/17 Range/Units 00:27 00:27 03:21 WBC 5.0 (3.8-10.6) k/uL RBC 4.62 (3.80-5.40) m/uL Hgb 14.0 (11.4-16.0) gm/dL Hct 42.3 (34.0-46.0) % MCV 91.5 (80.0-100.0) fL MCH 30.3 (25.0-35.0) pg MCHC 33.1 (31.0-37.0) g/dL RDW 14.1 (11.5-15.5) % Plt Count 137 L (150-450) k/uL Neutrophils % 50 % Lymphocytes % 32 % Monocytes % 10 % Eosinophils % 5 % Basophils % 1 % Neutrophils # 2.5 (1.3-7.7) k/uL Lymphocytes # 1.6 (1.0-4.8) k/uL Monocytes # 0.5 (0-1.0) k/uL Eosinophils # 0.2 (0-0.7) k/uL Basophils # 0.1 (0-0.2) k/uL Sodium 130 L (137-145) mmol/L Potassium 5.1 (3.5-5.1) mmol/L Chloride 102 (98-107) mmol/L Carbon Dioxide 22 (22-30) mmol/L Anion Gap 6 mmol/L BUN 9 (7-17) mg/dL Creatinine 0.60 (0.52-1.04) mg/dL Est GFR (MDRD) Af Amer >60 (>60 ml/min/1.73 sqM) Est GFR (MDRD) Non-Af >60 (>60 ml/min/1.73 sqM) Glucose 62 L (74-99) mg/dL POC Glucose (mg/dL) 106 H (75-99) mg/dL POC Glu Senior Python Developer ID Layla Guidry Calcium 8.7 (8.4-10.2) mg/dL Total Bilirubin 0.8 (0.2-1.3) mg/dL AST 55 H (14-36) U/L ALT 35 (9-52) U/L Alkaline Phosphatase 87 (38-126) U/L Total Protein 7.0 (6.3-8.2) g/dL Albumin 3.8 (3.5-5.0) g/dL Urine Color Urine Appearance (Clear) Urine pH (5.0-8.0) Ur Specific [place] (1.001-1.035) Urine Protein (Negative) Urine Glucose (UA) (Negative) Urine Ketones (Negative) Urine Blood (Negative) Urine Nitrite (Negative) Urine Bilirubin (Negative) Urine Urobilinogen (<2.0) mg/dL Ur Leukocyte Esterase (Negative) Urine RBC (0-5) /hpf Urine WBC (0-5) /hpf Ur Squamous Epith Cells (0-4) /hpf Amorphous Sediment (None) /hpf Urine Opiates Screen (NotDetected) Ur Oxycodone Screen (NotDetected) Urine Methadone Screen (NotDetected) Ur Propoxyphene Screen (NotDetected) Ur Barbiturates Screen (NotDetected) U Tricyclic Antidepress (NotDetected) Ur Phencyclidine Scrn (NotDetected) Ur Amphetamines Screen (NotDetected) U Methamphetamines Scrn (NotDetected) U Benzodiazepines Scrn (NotDetected) Urine Cocaine Screen (NotDetected) U Marijuana (THC) Screen (NotDetected) 11/14/17 Range/Units 03:56 WBC (3.8-10.6) k/uL RBC (3.80-5.40) m/uL Hgb (11.4-16.0) gm/dL Hct (34.0-46.0) % MCV (80.0-100.0) fL MCH (25.0-35.0) pg MCHC (31.0-37.0) g/dL RDW (11.5-15.5) % Plt Count (150-450) k/uL Neutrophils % % Lymphocytes % % Monocytes % % Eosinophils % % Basophils % % Neutrophils # (1.3-7.7) k/uL Lymphocytes # (1.0-4.8) k/uL Monocytes # (0-1.0) k/uL Eosinophils # (0-0.7) k/uL Basophils # (0-0.2) k/uL Sodium (137-145) mmol/L Potassium (3.5-5.1) mmol/L Chloride (98-107) mmol/L Carbon Dioxide (22-30) mmol/L Anion Gap mmol/L BUN (7-17) mg/dL Creatinine (0.52-1.04) mg/dL Est GFR (MDRD) Af Amer (>60 ml/min/1.73 sqM) Est GFR (MDRD) Non-Af (>60 ml/min/1.73 sqM) Glucose (74-99) mg/dL POC Glucose (mg/dL) (75-99) mg/dL POC Glu Senior Python Developer ID Calcium (8.4-10.2) mg/dL Total Bilirubin (0.2-1.3) mg/dL AST (14-36) U/L ALT (9-52) U/L Alkaline Phosphatase (38-126) U/L Total Protein (6.3-8.2) g/dL Albumin (3.5-5.0) g/dL Urine Color Yellow Urine Appearance Cloudy H (Clear) Urine pH 6.5 (5.0-8.0) Ur Specific [place] 1.025 (1.001-1.035) Urine Protein Trace H (Negative) Urine Glucose (UA) Negative (Negative) Urine Ketones Negative (Negative) Urine Blood Negative (Negative) Urine Nitrite Negative (Negative) Urine Bilirubin Negative (Negative) Urine Urobilinogen <2.0 (<2.0) mg/dL Ur Leukocyte Esterase Moderate H (Negative) Urine RBC 2 (0-5) /hpf Urine WBC 7 H (0-5) /hpf Ur Squamous Epith Cells 10 H (0-4) /hpf Amorphous Sediment Rare H (None) /hpf Urine Opiates Screen Detected H (NotDetected) Ur Oxycodone Screen Not Detected (NotDetected) Urine Methadone Screen Not Detected (NotDetected) Ur Propoxyphene Screen Not Detected (NotDetected) Ur Barbiturates Screen Not Detected (NotDetected) U Tricyclic Antidepress Not Detected (NotDetected) Ur Phencyclidine Scrn Not Detected (NotDetected) Ur Amphetamines Screen Not Detected (NotDetected) U Methamphetamines Scrn Not Detected (NotDetected) U Benzodiazepines Scrn Not Detected (NotDetected) Urine Cocaine Screen Not Detected (NotDetected) U Marijuana (THC) Screen Not Detected (NotDetected) - EKG Data EKG Comments: KG obtained at 14 shows normal sinus rhythm. Ventricular rate is 75, MO interval 1:30, QRS duration 90, QT 414, QTC 462. No evidence of ST elevation or depression. EKG was compared to previous study in September 2017. No acute changes. - Radiology Data Radiology results: report reviewed, image reviewed CT of the brain without contrast was performed. Report was reviewed in its entirety. Impression by Dr. Jacobs shows no acute CT findings. Disposition Clinical Impression: Recurrent seizures Disposition: HOME SELF-CARE Condition: Good Instructions: Recurrent Seizures in Adults (ED) Additional Instructions: Medications as directed. Follow-up with your neurologist as soon as possible. Return here immediately for any new, worsening, or concerning symptoms. Referrals: Jason Marrufo DO [Primary Care Provider] - 1-2 days Time of Disposition: 04:51
[2017-11-14 03:20] LABS: Basophils # (A) 0.1 k/uL (0-0.2); Basophils % (A) 1 %; Eosinophils # (A) 0.2 k/uL (0-0.7); Eosinophils % (A) 5 %; HCT 42.3 % (34.0-46.0); Lymphocytes # (A) 1.6 k/uL (1.0-4.8); Lymphocytes % (A) 32 %; MCH 30.3 pg (25.0-35.0); MCHC 33.1 g/dL (31.0-37.0); MCV 91.5 fL (80.0-100.0); Mean Platelet Volume 9.9; Monocytes # (A) 0.5 k/uL (0-1.0); Monocytes % (A) 10 %; Neutrophils # (A) 2.5 k/uL (1.3-7.7); Neutrophils % (A) 50 %; Platelet Count 137 k/uL (150-450); RBC 4.62 m/uL (3.80-5.40); RDW 14.1 % (11.5-15.5)
[2017-11-14 03:25] LABS: Glucose,Whole Blood 106 mg/dL (75-99)
[2017-11-14 03:31] LABS: ALT 35 U/L (9-52); AST 55 U/L (14-36); Albumin 3.8 g/dL (3.5-5.0); Alkaline Phosphatase 87 U/L (38-126); Anion Gap 6 mmol/L; Blood Urea Nitrogen 9 mg/dL (7-17); Calcium 8.7 mg/dL (8.4-10.2); Carbon Dioxide 22 mmol/L (22-30); Chloride 102 mmol/L (98-107); Glucose 62 mg/dL (74-99); Potassium 5.1 mmol/L (3.5-5.1); Sodium 130 mmol/L (137-145); Total Bilirubin 0.8 mg/dL (0.2-1.3)
--- NOTE | 2017-11-14 03:48 | CT ---
EXAM: CT Head Without Intravenous Contrast CLINICAL HISTORY: Reason: Pain TECHNIQUE: Axial computed tomography images of the head/brain without intravenous contrast. CTDI is 57.4 mGy and DLP is 995.5 mGy-cm. This CT exam was performed using one or more of the following dose reduction techniques: automated exposure control, adjustment of the mA and/or kV according to patient size, and/or use of iterative reconstruction technique. COMPARISON: 10/09/27 FINDINGS: Brain: Unremarkable. No hemorrhage. No significant white matter disease. No edema. Ventricles: Unremarkable. No ventriculomegaly. Bones/joints: Unremarkable. No acute fracture. Soft tissues: Unremarkable. Sinuses: Unremarkable as visualized. No acute sinusitis. Mastoid air cells: Unremarkable as visualized. No mastoid effusion. IMPRESSION: No acute CT findings.
[2017-11-14 04:24] LABS: Amorphous Sediment,Urine Rare /hpf; Appearance,Urine Cloudy (Clear); Bilirubin,Urine Negative (Negative); Blood,Urine Negative (Negative); Color,Urine Yellow; Glucose,Urine (UA) Negative (Negative); Ketones,Urine Negative (Negative); Leukocyte Esterase,Urine Moderate (Negative); Nitrite,Urine Negative (Negative); PH, Urine 6.5 (5.0-8.0); Protein,Urine Trace (Negative); RBC,Urine 2 /hpf (0-5); Specific Gravity,Urine 1.025 (1.001-1.035); Squamous Epithelial Cell,Urine 10 /hpf (0-4); Urobilinogen,Urine <2.0 mg/dL (<2.0); WBC,Urine 7 /hpf (0-5)
[2017-11-14 04:36] LABS: Amphetamine Screen,Urine Not Detected (NotDetected); Barbiturate Screen,Urine Not Detected (NotDetected); Benzodiazepines Screen,Urine Not Detected (NotDetected); Cocaine Screen,Urine Not Detected (NotDetected); Methadone Screen, Urine Not Detected (NotDetected); Opiate Screen,Urine Detected (NotDetected); Oxycodone Screen, Urine Not Detected (NotDetected); Phencyclidine Screen,Urine Not Detected (NotDetected); Tricyclic Antidepressant,Urine Not Detected (NotDetected); Urn Cannabinoid Scrn Not Detected (NotDetected)
[2017-11-15 22:53] VITALS: BP 109/56; PULSE 82; RESP 17; TEMP 98.9
== END 2017-11-14 04:59 | disposition home or self-care (01) ==
LOC: EC 02:18
DX: R56.9 Unspecified convulsions (principal); M54.5 Low back pain; R51 Headache; M79.7 Fibromyalgia; E03.9 Hypothyroidism, unspecified; F32.9 Major depressive disorder, single episode, unspecified; F20.9 Schizophrenia, unspecified; F17.200 Nicotine dependence, unspecified, uncomplicated; Z79.899 Other long term (current) drug therapy; Z88.1 Allergy status to other antibiotic agents; Z88.5 Allergy status to narcotic agent; Z88.2 Allergy status to sulfonamides; Z91.048 Other nonmedicinal substance allergy status; Z88.6 Allergy status to analgesic agent
CPT/HCPCS: 36415; 70450; 80053; 80306; 81001; 85025; 93005; 96360; 99285

== ENCOUNTER 2017-12-14 14:44 | Emergency (ER) | payer OTHER ==
[2017-12-14] MEDS ORDERED: DIAZEPAM 5 MG TAB PO STA (15:08)
[2017-12-14] MEDS ORDERED: IBUPROFEN 800 MG TAB PO STA (15:08)
[2017-12-14] MEDS ORDERED: HYDROmorphone 2 MG/ML 1 ML SYRINGE IM STA (15:08)
[2017-12-14] MEDS ORDERED: predniSONE 20 MG TAB PO STA (15:08)
--- NOTE | 2017-12-14 15:10 | ED ---
General Adult HPI - General Chief complaint: Back Pain/Injury Stated complaint: Back Pain Time Seen by Provider: 12/14/17 15:00 Source: patient, RN notes reviewed, old records reviewed Mode of arrival: wheelchair Limitations: no limitations - History of Present Illness Initial comments: this is a 37-year-old female to the ER for evaluation of back pain. Patient has history of chronic back pain. Secondary slip discs. No traumatic injury causing back pain. But she has been and had prior evaluations. She has no nausea vomiting or diarrhea no bowel movements no fevers. Patient denies IV drug abuse. No recent tattoos. Patient states she is urinating without difficulty stay no blood in her urine. No history of kidney stones. - Related Data Home Medications Medication Instructions Recorded Confirmed Levothyroxine Sodium [Synthroid] 300 mcg PO DAILY 09/23/14 12/14/17 Ibuprofen [Motrin] 800 mg PO Q8HR PRN 05/02/16 12/14/17 Ferrous Sulfate [Feosol] 325 mg PO DAILY 03/03/17 12/14/17 lamoTRIgine [LaMICtal] 200 mg PO HS 03/27/17 12/14/17 Magnesium Oxide [Mag-Ox] 250 mg PO DAILY 07/09/17 12/14/17 OXcarbazepine [Trileptal] 300 mg PO BID 07/09/17 12/14/17 OXcarbazepine [Trileptal] 600 mg PO BID 07/09/17 12/14/17 DULoxetine HCL [Cymbalta] 60 mg PO DAILY 10/09/17 12/14/17 Paliperidone IM [Invega Sustenna] 234 mg IM Q28D 10/09/17 12/14/17 Prazosin [Minipress] 1 mg PO HS 10/09/17 12/14/17 Cholecalciferol [Vitamin D3] 5,000 unit PO DAILY 12/14/17 12/14/17 DULoxetine HCL [Cymbalta] 30 mg PO DAILY 12/14/17 12/14/17 Previous Rx's Medication Instructions Recorded Gabapentin [Neurontin] 800 mg PO TID #90 tablet 06/19/15 lamoTRIgine [LaMICtal] 50 mg PO DAILY #30 tab 03/29/17 Allergies Allergy/AdvReac Type Severity Reaction Status Date / Time ciprofloxacin [From Cipro] Allergy Unknown Rash/Hives Verified 12/14/17 15:22 morphine Allergy Unknown Anaphylaxis Verified 12/14/17 15:22 nitrofurantoin Allergy Unknown Rash/Hives Verified 12/14/17 15:22 [From Macrobid] nitrofurantoin Allergy Unknown Rash/Hives Verified 12/14/17 15:22 macrocrystalline [From Macrobid] sulfamethoxazole Allergy Unknown Rash/Hives Verified 12/14/17 15:22 [From Bactrim] trimethoprim [From Bactrim] Allergy Unknown Rash/Hives Verified 12/14/17 15:22 adhesive tape Allergy Rash/Hives Verified 12/14/17 15:22 alcohol Allergy Rash/Hives Verified 12/14/17 15:22 [From Mastisol Adhesive] gum mastic Allergy Rash/Hives Verified 12/14/17 15:22 [From Mastisol Adhesive] methyl salicylate Allergy Rash/Hives Verified 12/14/17 15:22 [From Mastisol Adhesive] storax Allergy Rash/Hives Verified 12/14/17 15:22 [From Mastisol Adhesive] tramadol [From Ultram] AdvReac Seizures Verified 12/14/17 15:22 PAPER TAPE Allergy PEELS Uncoded 12/14/17 14:56 SKIN,RASH STERI STRIPS Allergy RASH, Uncoded 12/14/17 14:56 PEELS SKIN Review of Systems ROS Statement: Those systems with pertinent positive or pertinent negative responses have been documented in the HPI. ROS Other: All systems not noted in ROS Statement are negative. Past Medical History Past Medical History: Fibromyalgia, Osteoarthritis (OA), Seizure Disorder, Thyroid Disorder Additional Past Medical History / Comment(s): Seizures, DDD lumbar, heniated discs lumbar and cervical, fibromyalgia, IBS, hypothryoidism, migraines, Fx knee 09/2015-healed with brace, L foot fractured a total of 5 times-had surgery with screws placed. 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 Past Anesthesia/Blood Transfusion Reactions: No Reported Reaction Past Psychological History: Anxiety, Bipolar, Depression, Panic Disorder, Schizophrenia Smoking Status: Current every day smoker Past Alcohol Use History: None Reported Past Drug Use History: None Reported - Past Family History Father Family Medical History: Hypertension Additional Family Medical History / Comment(s): Father is about 53 yrs old and has back problems. Mother Family Medical History: Diabetes Mellitus Additional Family Medical History / Comment(s): Mother is about 53 yrs old General Exam Limitations: no limitations General appearance: alert, in no apparent distress Head exam: Present: atraumatic, normocephalic, normal inspection Eye exam: Present: normal appearance, PERRL, EOMI. Absent: scleral icterus, conjunctival injection, periorbital swelling ENT exam: Present: normal exam, mucous membranes moist Neck exam: Present: normal inspection. Absent: tenderness, meningismus, lymphadenopathy Respiratory exam: Present: normal lung sounds bilaterally. Absent: respiratory distress, wheezes, rales, rhonchi, stridor Cardiovascular Exam: Present: regular rate, normal rhythm, normal heart sounds. Absent: systolic murmur, diastolic murmur, rubs, gallop, clicks GI/Abdominal exam: Present: soft, normal bowel sounds. Absent: distended, tenderness, guarding, rebound, rigid Extremities exam: Present: normal inspection, full ROM, normal capillary refill. Absent: tenderness, pedal edema, joint swelling, calf tenderness Back exam: Present: normal inspection Neurological exam: Present: alert, oriented X3, CN II-XII intact Psychiatric exam: Present: normal affect, normal mood Skin exam: Present: warm, dry, intact, normal color. Absent: rash Course Vital Signs 12/14/17 14:52 Temperature 98 F Pulse Rate 100 Respiratory 18 Rate Blood Pressure 121/78 O2 Sat by Pulse 96 Oximetry - Reevaluation(s) Reevaluation #1: 12/14/17 16:25 Records are reviewed, at this time patient has achieved pain control Medical Decision Making - Medical Decision Making 37 female the ER for evaluation of back pain, acute on chronic back pain. Patient will be discharged home Disposition Clinical Impression: Mechanical back pain, Lumbar radiculopathy Disposition: HOME SELF-CARE Condition: Good Instructions: Chronic Back Pain (ED), Acute Low Back Pain (ED) Referrals: Jason Marrufo DO [Primary Care Provider] - 1-2 days
[2017-12-14 16:57] VITALS: BP 127/70; PULSE 98; RESP 16; TEMP 96.9
== END 2017-12-14 16:58 | disposition home or self-care (01) ==
LOC: EC 14:44
DX: M54.16 Radiculopathy, lumbar region (principal); G40.909 Epilepsy, unspecified, not intractable, without status epilepticus; E03.9 Hypothyroidism, unspecified; F20.9 Schizophrenia, unspecified; F31.9 Bipolar disorder, unspecified; F41.0 Panic disorder [episodic paroxysmal anxiety]; F17.200 Nicotine dependence, unspecified, uncomplicated; Z79.899 Other long term (current) drug therapy; Z88.1 Allergy status to other antibiotic agents; Z88.5 Allergy status to narcotic agent; Z88.2 Allergy status to sulfonamides; Z91.048 Other nonmedicinal substance allergy status; Z88.6 Allergy status to analgesic agent; Z91.09 Other allergy status, other than to drugs and biological substances; Z98.890 Other specified postprocedural states
CPT/HCPCS: 99284; 96372; J1170; J7512

== ENCOUNTER 2018-03-01 10:15 | Emergency (ER) | payer OTHER ==
[2018-03-01 10:21] VITALS: TEMP 98
[2018-03-01] MEDS ORDERED: KETOROLAC 30 MG/ML 1 ML VIAL IVP STA (11:38)
[2018-03-01] MEDS ORDERED: diphenhydrAMINE 50 MG/ML 1 ML VIAL IVP STA (11:38)
[2018-03-01] MEDS ORDERED: ORPHENADRINE 30 MG/ML 2 ML VIAL IVP STA (11:38)
[2018-03-01] MEDS ORDERED: SODIUM CHLORIDE 0.9% 500 ML IV ONE (11:39)
[2018-03-01] MEDS ORDERED: METOCLOPRAMIDE 5 MG/ML 2 ML VIAL IVP STA (11:39)
--- NOTE | 2018-03-01 11:41 | ED ---
Headache HPI - General Chief Complaint: Headache Stated Complaint: MIGRAINE Time Seen by Provider: 03/01/18 11:30 Source: patient, RN notes reviewed Mode of arrival: ambulatory Limitations: no limitations - History of Present Illness Initial Comments: This a 37-year-old female presented for chief complaint of headache. Patient states that she has chronic migraines only gets occipital injections but states that she missed her appointment. She does have an appointment on Monday. She states her headaches are getting worse she tried her [place] no relief. She states occasionally she has gone the hospital for medications. Patient states that she has some light sensitivity and sound sensitivity the patient was seen in the room with lights on and TV on mild. She states she is trying to stay awake. Patient has no weakness. Denies any fevers chills neck pain states that she's had nausea vomiting no blurred vision. - Related Data Home Medications Medication Instructions Recorded Confirmed Levothyroxine Sodium [Synthroid] 300 mcg PO DAILY 09/23/14 03/01/18 Ibuprofen [Motrin] 800 mg PO Q8HR PRN 05/02/16 03/01/18 Ferrous Sulfate [Feosol] 325 mg PO DAILY 03/03/17 03/01/18 lamoTRIgine [LaMICtal] 200 mg PO HS 03/27/17 03/01/18 Magnesium Oxide [Mag-Ox] 250 mg PO DAILY 07/09/17 03/01/18 OXcarbazepine [Trileptal] 300 mg PO BID 07/09/17 03/01/18 OXcarbazepine [Trileptal] 600 mg PO BID 07/09/17 03/01/18 DULoxetine HCL [Cymbalta] 60 mg PO DAILY 10/09/17 03/01/18 Paliperidone IM [Invega Sustenna] 234 mg IM Q28D 10/09/17 03/01/18 Prazosin [Minipress] 1 mg PO HS 10/09/17 03/01/18 Cholecalciferol [Vitamin D3] 5,000 unit PO DAILY 12/14/17 03/01/18 DULoxetine HCL [Cymbalta] 30 mg PO DAILY 12/14/17 03/01/18 Previous Rx's Medication Instructions Recorded Gabapentin [Neurontin] 800 mg PO TID #90 tablet 06/19/15 lamoTRIgine [LaMICtal] 50 mg PO DAILY #30 tab 05/17/17 Allergies Allergy/AdvReac Type Severity Reaction Status Date / Time ciprofloxacin [From Cipro] Allergy Unknown Rash/Hives Verified 03/01/18 11:52 morphine Allergy Unknown Anaphylaxis Verified 03/01/18 11:52 nitrofurantoin Allergy Unknown Rash/Hives Verified 03/01/18 11:52 [From Macrobid] nitrofurantoin Allergy Unknown Rash/Hives Verified 03/01/18 11:52 macrocrystalline [From Macrobid] sulfamethoxazole Allergy Unknown Rash/Hives Verified 03/01/18 11:52 [From Bactrim] trimethoprim [From Bactrim] Allergy Unknown Rash/Hives Verified 03/01/18 11:52 adhesive tape Allergy Rash/Hives Verified 03/01/18 11:52 alcohol Allergy Rash/Hives Verified 03/01/18 11:52 [From Mastisol Adhesive] gum mastic Allergy Rash/Hives Verified 03/01/18 11:52 [From Mastisol Adhesive] methyl salicylate Allergy Rash/Hives Verified 03/01/18 11:52 [From Mastisol Adhesive] storax Allergy Rash/Hives Verified 03/01/18 11:52 [From Mastisol Adhesive] tramadol [From Ultram] AdvReac Seizures Verified 03/01/18 11:52 PAPER TAPE Allergy PEELS Uncoded 03/01/18 10:21 SKIN,RASH STERI STRIPS Allergy RASH, Uncoded 03/01/18 10:21 PEELS SKIN Review of Systems ROS Statement: Those systems with pertinent positive or pertinent negative responses have been documented in the HPI. ROS Other: All systems not noted in ROS Statement are negative. Past Medical History Past Medical History: Fibromyalgia, Osteoarthritis (OA), Seizure Disorder, Thyroid Disorder Additional Past Medical History / Comment(s): Seizures, DDD lumbar, heniated discs lumbar and cervical, fibromyalgia, IBS, hypothryoidism, migraines, Fx knee 09/2015-healed with brace, L foot fractured a total of 5 times-had surgery with screws placed. 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 Past Anesthesia/Blood Transfusion Reactions: No Reported Reaction Past Psychological History: Anxiety, Bipolar, Depression, Panic Disorder, Schizophrenia Smoking Status: Current every day smoker Past Alcohol Use History: None Reported Past Drug Use History: None Reported - Past Family History Father Family Medical History: Hypertension Additional Family Medical History / Comment(s): Father is about 53 yrs old and has back problems. Mother Family Medical History: Diabetes Mellitus Additional Family Medical History / Comment(s): Mother is about 53 yrs old General Exam Limitations: no limitations General appearance: alert, in no apparent distress Head exam: Present: atraumatic, normocephalic, normal inspection Eye exam: Present: normal appearance, PERRL, EOMI. Absent: scleral icterus, conjunctival injection, periorbital swelling ENT exam: Present: normal exam, normal oropharynx, mucous membranes moist Neck exam: Present: normal inspection, full ROM. Absent: tenderness, meningismus, lymphadenopathy Respiratory exam: Present: normal lung sounds bilaterally. Absent: respiratory distress, wheezes, rales, rhonchi, stridor Cardiovascular Exam: Present: regular rate, normal rhythm, normal heart sounds. Absent: systolic murmur, diastolic murmur, rubs, gallop, clicks GI/Abdominal exam: Present: soft, normal bowel sounds. Absent: distended, tenderness, guarding, rebound, rigid Extremities exam: Present: normal inspection, full ROM, normal capillary refill. Absent: tenderness, pedal edema, joint swelling, calf tenderness Neurological exam: Present: alert, oriented X3, CN II-XII intact, reflexes normal, other (Finger to nose intact bilaterally without overshooting). Absent : motor sensory deficit Skin exam: Present: warm, dry, intact, normal color. Absent: rash Course Vital Signs 03/01/18 10:20 Temperature 98.0 F Pulse Rate 68 Respiratory 20 Rate Blood Pressure 127/82 O2 Sat by Pulse 100 Oximetry - Reevaluation(s) Reevaluation #1: 03/01/18 13:58 Patient was reevaluated some states her headache is somewhat improved. Patient requested further pain medication though she is sitting comfortably in the bed watching TV and upright. Patient's exam is benign at time. Medical Decision Making - Medical Decision Making 37-year-old female emergency dept for headache. She has chronic headaches most symptoms related to not receiving occipital injections. Patient has appointment on Monday. Patient has normal neuro exam. Patient we discharged at this time. Disposition Clinical Impression: Migraine Disposition: HOME SELF-CARE Condition: Stable Instructions: Acute Headache (ED) Additional Instructions: Please return to the Emergency Department if symptoms worsen or any other concerns. Is patient prescribed a controlled substance at d/c from ED?: No Referrals: Jason Marrufo DO [Primary Care Provider] - 1-2 days Time of Disposition: 13:59
[2018-03-01] MEDS ORDERED: HYDROcodone/APAP 10-325MG 1 EACH TAB PO ONE (13:57)
[2018-03-01 14:19] VITALS: BP 117/80; PULSE 64; RESP 18
== END 2018-03-01 14:19 | disposition home or self-care (01) ==
LOC: EC 10:15
DX: G43.909 Migraine, unspecified, not intractable, without status migrainosus (principal); M79.7 Fibromyalgia; G40.909 Epilepsy, unspecified, not intractable, without status epilepticus; E03.9 Hypothyroidism, unspecified; F41.9 Anxiety disorder, unspecified; F32.9 Major depressive disorder, single episode, unspecified; F20.9 Schizophrenia, unspecified; F17.200 Nicotine dependence, unspecified, uncomplicated; Z79.899 Other long term (current) drug therapy; Z88.1 Allergy status to other antibiotic agents; Z88.5 Allergy status to narcotic agent; Z88.2 Allergy status to sulfonamides; Z91.048 Other nonmedicinal substance allergy status; Z88.8 Allergy status to other drugs, medicaments and biological substances; Z88.6 Allergy status to analgesic agent
CPT/HCPCS: 99283; 96374; 96375 ×3; 96361; J1200; J2360; J2765; J1885

== ENCOUNTER 2018-04-07 20:51 | Emergency (ER) | payer OTHER ==
[2018-04-07 20:55] VITALS: BP 128/81; PULSE 100; RESP 20; TEMP 98.1
--- NOTE | 2018-04-07 21:22 | ED ---
Skin/Abscess/FB HPI - General Chief complaint: Skin/Abscess/Foreign Body Stated complaint: Rash Time Seen by Provider: 04/07/18 21:15 Source: patient Mode of arrival: ambulatory Limitations: no limitations - History of Present Illness Initial comments: This patient's a 37-year-old woman with history of previous intertrigo, who presents with complaint that she believes this is recurring. She states over the past number of days she has developed red itching and now there is an odor associated with the rash as well. It is located in the folds of skin under the pannus and also near the groin area. She has previously been treated with nystatin which gave good resolution. Patient denies fever or chills. She has not noted any secondary infection. MD complaint: rash -: days(s) Tetanus Up to Date: yes Severity: moderate Quality: burning Consistency: constant Improves with: none Worsens with: none Associated symptoms: denies other symptoms Treatments Prior to Arrival: none - Related Data Home Medications Medication Instructions Recorded Confirmed Levothyroxine Sodium [Synthroid] 300 mcg PO DAILY 09/23/14 04/07/18 Ibuprofen [Motrin] 800 mg PO Q8HR PRN 05/02/16 04/07/18 Ferrous Sulfate [Feosol] 325 mg PO DAILY 03/03/17 04/07/18 lamoTRIgine [LaMICtal] 200 mg PO HS 03/27/17 04/07/18 Magnesium Oxide [Mag-Ox] 250 mg PO DAILY 07/09/17 04/07/18 OXcarbazepine [Trileptal] 300 mg PO BID 07/09/17 04/07/18 OXcarbazepine [Trileptal] 600 mg PO BID 07/09/17 04/07/18 DULoxetine HCL [Cymbalta] 60 mg PO DAILY 10/09/17 04/07/18 Paliperidone IM [Invega Sustenna] 234 mg IM Q28D 10/09/17 04/07/18 Prazosin [Minipress] 1 mg PO HS 10/09/17 04/07/18 Cholecalciferol [Vitamin D3] 5,000 unit PO DAILY 12/14/17 04/07/18 DULoxetine HCL [Cymbalta] 30 mg PO DAILY 12/14/17 04/07/18 Previous Rx's Medication Instructions Recorded Gabapentin [Neurontin] 800 mg PO TID #90 tablet 06/19/15 lamoTRIgine [LaMICtal] 50 mg PO DAILY #30 tab 03/29/17 Nystatin 100,000 Unit/gm Powd 1 applic TOPICAL BID #30 gm 04/07/18 [Mycostatin Powder] Allergies Allergy/AdvReac Type Severity Reaction Status Date / Time ciprofloxacin [From Cipro] Allergy Unknown Rash/Hives Verified 04/07/18 20:55 morphine Allergy Unknown Anaphylaxis Verified 04/07/18 20:55 nitrofurantoin Allergy Unknown Rash/Hives Verified 04/07/18 20:55 [From Macrobid] nitrofurantoin Allergy Unknown Rash/Hives Verified 04/07/18 20:55 macrocrystalline [From Macrobid] sulfamethoxazole Allergy Unknown Rash/Hives Verified 04/07/18 20:55 [From Bactrim] trimethoprim [From Bactrim] Allergy Unknown Rash/Hives Verified 04/07/18 20:55 adhesive tape Allergy Rash/Hives Verified 04/07/18 20:55 alcohol Allergy Rash/Hives Verified 04/07/18 20:55 [From Mastisol Adhesive] gum mastic Allergy Rash/Hives Verified 04/07/18 20:55 [From Mastisol Adhesive] methyl salicylate Allergy Rash/Hives Verified 04/07/18 20:55 [From Mastisol Adhesive] storax Allergy Rash/Hives Verified 04/07/18 20:55 [From Mastisol Adhesive] tramadol [From Ultram] AdvReac Seizures Verified 04/07/18 20:55 PAPER TAPE Allergy PEELS Uncoded 04/07/18 20:55 SKIN,RASH STERI STRIPS Allergy RASH, Uncoded 04/07/18 20:55 PEELS SKIN Review of Systems ROS Statement: Those systems with pertinent positive or pertinent negative responses have been documented in the HPI. ROS Other: All systems not noted in ROS Statement are negative. Constitutional: Denies: fever, chills Endocrine: Denies: polydipsia, polyuria Gastrointestinal: Denies: abdominal pain Genitourinary: Denies: dysuria, frequency, hematuria Skin: Reports: as per HPI, rash Past Medical History Past Medical History: Fibromyalgia, Osteoarthritis (OA), Seizure Disorder, Thyroid Disorder Additional Past Medical History / Comment(s): Seizures, DDD lumbar, heniated discs lumbar and cervical, fibromyalgia, IBS, hypothryoidism, migraines, Fx knee 09/2015-healed with brace, L foot fractured a total of 5 times-had surgery with screws placed. 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 Past Anesthesia/Blood Transfusion Reactions: No Reported Reaction Past Psychological History: Anxiety, Bipolar, Depression, Panic Disorder, Schizophrenia Smoking Status: Current every day smoker Past Alcohol Use History: None Reported Past Drug Use History: None Reported - Past Family History Father Family Medical History: Hypertension Additional Family Medical History / Comment(s): Father is about 53 yrs old and has back problems. Mother Family Medical History: Diabetes Mellitus Additional Family Medical History / Comment(s): Mother is about 53 yrs old General Exam Limitations: no limitations General appearance: alert, in no apparent distress, obese Skin exam: Present: warm, dry, rash, erythema, other (The patient has intertrigo beneath the pannus. No evidence of secondary infection.) Course Vital Signs 04/07/18 20:52 Temperature 98.1 F Pulse Rate 100 Respiratory 20 Rate Blood Pressure 128/81 O2 Sat by Pulse 99 Oximetry Disposition Clinical Impression: Intertrigo Disposition: HOME SELF-CARE Condition: Good Instructions: Jock Itch (ED) Prescriptions: Nystatin 100,000 Unit/gm Powd [Mycostatin Powder] 1 applic TOPICAL BID #30 gm Is patient prescribed a controlled substance at d/c from ED?: No Referrals: Jason Marrufo DO [Primary Care Provider] - 1-2 days
== END 2018-04-07 21:30 | disposition home or self-care (01) ==
LOC: EC 20:51
DX: L30.4 Erythema intertrigo (principal); E66.9 Obesity, unspecified; G40.909 Epilepsy, unspecified, not intractable, without status epilepticus; E03.9 Hypothyroidism, unspecified; F20.9 Schizophrenia, unspecified; F31.9 Bipolar disorder, unspecified; F41.0 Panic disorder [episodic paroxysmal anxiety]; F17.200 Nicotine dependence, unspecified, uncomplicated; Z79.899 Other long term (current) drug therapy; Z88.1 Allergy status to other antibiotic agents; Z88.5 Allergy status to narcotic agent; Z91.09 Other allergy status, other than to drugs and biological substances; Z68.41 Body mass index [BMI] 40.0-44.9, adult
CPT/HCPCS: 99282

== ENCOUNTER 2018-07-31 08:46 | Emergency (ER) | payer OTHER ==
[2018-07-31] MEDS ORDERED: SODIUM CHLORIDE 0.9% 1,000 ML IV ONE (09:13)
[2018-07-31] MEDS ORDERED: KETOROLAC 30 MG/ML 1 ML VIAL IVP STA (09:13)
[2018-07-31] MEDS ORDERED: ONDANSETRON 4 MG/2 ML VIAL IVP STA (09:13)
--- NOTE | 2018-07-31 09:15 | ED ---
Female Urogenital HPI - General Chief complaint: Urogenital Stated complaint: Poss UTI Time Seen by Provider: 07/31/18 08:59 Source: patient, RN notes reviewed, old records reviewed Mode of arrival: ambulatory Limitations: no limitations - History of Present Illness Initial comments: Patient's a 38-year-old female presents emergency murmurs treatment 2 weeks of dysuria, most and lower back pain. Patient reports that over the past few days she's been having increasing pain towards her back. She reports she's had fevers. Recent Motrin Tylenol was given prior to arrival. She states that she has had history of kidney functions in the past. Patient states that she's had no chest pain shortness of breath. She does have some lower abdominal pain associated with this as well. Does report some diarrhea and occasional vomiting. - Related Data Home Medications Medication Instructions Recorded Confirmed Levothyroxine Sodium [Synthroid] 300 mcg PO DAILY 09/23/14 04/07/18 Ibuprofen [Motrin] 800 mg PO Q8HR PRN 05/02/16 04/07/18 Ferrous Sulfate [Feosol] 325 mg PO DAILY 03/03/17 04/07/18 lamoTRIgine [LaMICtal] 200 mg PO HS 03/27/17 04/07/18 Magnesium Oxide [Mag-Ox] 250 mg PO DAILY 07/09/17 04/07/18 OXcarbazepine [Trileptal] 300 mg PO BID 07/09/17 04/07/18 OXcarbazepine [Trileptal] 600 mg PO BID 07/09/17 04/07/18 DULoxetine HCL [Cymbalta] 60 mg PO DAILY 10/09/17 04/07/18 Paliperidone IM [Invega Sustenna] 234 mg IM Q28D 10/09/17 04/07/18 Prazosin [Minipress] 1 mg PO HS 10/09/17 04/07/18 Cholecalciferol [Vitamin D3] 5,000 unit PO DAILY 12/14/17 04/07/18 DULoxetine HCL [Cymbalta] 30 mg PO DAILY 12/14/17 04/07/18 Previous Rx's Medication Instructions Recorded Gabapentin [Neurontin] 800 mg PO TID #90 tablet 06/19/15 lamoTRIgine [LaMICtal] 50 mg PO DAILY #30 tab 03/29/17 Nystatin 100,000 Unit/gm Powd 1 applic TOPICAL BID #30 gm 04/07/18 [Mycostatin Powder] Cephalexin [Keflex] 500 mg PO Q8HR #30 cap 07/31/18 Ibuprofen 600 mg PO TID #20 tablet 07/31/18 Phenazopyridine HCl [Pyridium] 100 mg PO TID #9 tab 07/31/18 Allergies Allergy/AdvReac Type Severity Reaction Status Date / Time ciprofloxacin [From Cipro] Allergy Unknown Rash/Hives Verified 04/07/18 20:55 morphine Allergy Unknown Anaphylaxis Verified 04/07/18 20:55 nitrofurantoin Allergy Unknown Rash/Hives Verified 04/07/18 20:55 [From Macrobid] nitrofurantoin Allergy Unknown Rash/Hives Verified 04/07/18 20:55 macrocrystalline [From Macrobid] sulfamethoxazole Allergy Unknown Rash/Hives Verified 04/07/18 20:55 [From Bactrim] trimethoprim [From Bactrim] Allergy Unknown Rash/Hives Verified 04/07/18 20:55 adhesive tape Allergy Rash/Hives Verified 04/07/18 20:55 alcohol Allergy Rash/Hives Verified 04/07/18 20:55 [From Mastisol Adhesive] gum mastic Allergy Rash/Hives Verified 04/07/18 20:55 [From Mastisol Adhesive] methyl salicylate Allergy Rash/Hives Verified 04/07/18 20:55 [From Mastisol Adhesive] storax Allergy Rash/Hives Verified 04/07/18 20:55 [From Mastisol Adhesive] tramadol [From Ultram] AdvReac Seizures Verified 04/07/18 20:55 PAPER TAPE Allergy PEELS Uncoded 04/07/18 20:55 SKIN,RASH STERI STRIPS Allergy RASH, Uncoded 04/07/18 20:55 PEELS SKIN Review of Systems ROS Statement: Those systems with pertinent positive or pertinent negative responses have been documented in the HPI. ROS Other: All systems not noted in ROS Statement are negative. Past Medical History Past Medical History: Fibromyalgia, Osteoarthritis (OA), Seizure Disorder, Thyroid Disorder Additional Past Medical History / Comment(s): Seizures, DDD lumbar, heniated discs lumbar and cervical, fibromyalgia, IBS, hypothryoidism, migraines, Fx knee 09/2015-healed with brace, L foot fractured a total of 5 times-had surgery with screws placed. 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 Past Anesthesia/Blood Transfusion Reactions: No Reported Reaction Past Psychological History: Anxiety, Bipolar, Depression, Panic Disorder, Schizophrenia Smoking Status: Current every day smoker Past Alcohol Use History: None Reported Past Drug Use History: Marijuana - Past Family History Father Family Medical History: Hypertension Additional Family Medical History / Comment(s): Father is about 53 yrs old and has back problems. Mother Family Medical History: Diabetes Mellitus Additional Family Medical History / Comment(s): Mother is about 53 yrs old General Exam - General Exam Comments Initial Comments: 38-year-old female. Alert and oriented. No significant distress. Limitations: no limitations General appearance: alert, in no apparent distress Head exam: Present: atraumatic, normocephalic, normal inspection Eye exam: Present: normal appearance ENT exam: Present: normal exam, mucous membranes moist Neck exam: Present: normal inspection. Absent: tenderness, meningismus, lymphadenopathy Respiratory exam: Present: normal lung sounds bilaterally. Absent: respiratory distress, wheezes, rales, rhonchi, stridor Cardiovascular Exam: Present: regular rate, normal rhythm, normal heart sounds. Absent: systolic murmur, diastolic murmur, rubs, gallop, clicks GI/Abdominal exam: Present: soft, tenderness (Suprapubic abdominal tenderness.) , normal bowel sounds. Absent: distended, guarding, rebound, rigid Extremities exam: Present: normal inspection, full ROM, normal capillary refill. Absent: tenderness, pedal edema, joint swelling, calf tenderness Back exam: Present: normal inspection, CVA tenderness (L) Neurological exam: Present: alert, oriented X3, CN II-XII intact Psychiatric exam: Present: normal affect, normal mood Skin exam: Present: warm, dry, intact, normal color. Absent: rash Course Vital Signs 07/31/18 08:48 Temperature 97.7 F Pulse Rate 95 Respiratory 18 Rate Blood Pressure 110/79 O2 Sat by Pulse 98 Oximetry Medical Decision Making - Medical Decision Making 38-year-old female presents emergency Department chief complaint of left-sided flank pain as well as dysuria for the past 2 weeks. Urinalysis is positive for infection with greater than 182 white blood cells. Some mild urine blood is noted. She is some slight CVA tenderness. White blood cell count is within normal limits. Kidney function preserved. This time I discussed with the Patient for outpatient pyelonephritis. She was given 2 g of Rocephin and emergency department. I discussed the importance of remaining hydrated. We'll discharge the Patient with antibiotics, Keflex as well as I discussed closed. Return parameters. Discussed close follow-up with primary care physician. Patient understands treatment plan will comply. Return parameters were discussed. - Lab Data Result diagrams: 07/31/18 09:32 07/31/18 09:32 Lab Results 07/31/18 07/31/18 07/31/18 Range/Units 08:58 08:58 09:32 WBC 10.1 (3.8-10.6) k/uL RBC 4.93 (3.80-5.40) m/uL Hgb 15.3 (11.4-16.0) gm/dL Hct 48.2 H (34.0-46.0) % MCV 97.9 (80.0-100.0) fL MCH 31.0 (25.0-35.0) pg MCHC 31.6 (31.0-37.0) g/dL RDW 13.3 (11.5-15.5) % Plt Count 131 L (150-450) k/uL Neutrophils % 78 % Lymphocytes % 13 % Monocytes % 6 % Eosinophils % 2 % Basophils % 0 % Neutrophils # 7.8 H (1.3-7.7) k/uL Lymphocytes # 1.3 (1.0-4.8) k/uL Monocytes # 0.6 (0-1.0) k/uL Eosinophils # 0.3 (0-0.7) k/uL Basophils # 0.0 (0-0.2) k/uL Sodium (137-145) mmol/L Potassium (3.5-5.1) mmol/L Chloride (98-107) mmol/L Carbon Dioxide (22-30) mmol/L Anion Gap mmol/L BUN (7-17) mg/dL Creatinine (0.52-1.04) mg/dL Est GFR (CKD-EPI)AfAm (>60 ml/min/1.73 sqM) Est GFR (CKD-EPI)NonAf (>60 ml/min/1.73 sqM) Glucose (74-99) mg/dL Calcium (8.4-10.2) mg/dL Total Bilirubin (0.2-1.3) mg/dL AST (14-36) U/L ALT (9-52) U/L Alkaline Phosphatase (38-126) U/L Total Protein (6.3-8.2) g/dL Albumin (3.5-5.0) g/dL Urine Color Light Yellow Urine Appearance Cloudy H (Clear) Urine pH 6.5 (5.0-8.0) Ur Specific [place] 1.008 (1.001-1.035) Urine Protein 1+ H (Negative) Urine Glucose (UA) Negative (Negative) Urine Ketones Negative (Negative) Urine Blood Moderate H (Negative) Urine Nitrite Negative (Negative) Urine Bilirubin Negative (Negative) Urine Urobilinogen <2.0 (<2.0) mg/dL Ur Leukocyte Esterase Large H (Negative) Urine RBC 16 H (0-5) /hpf Urine WBC >182 H (0-5) /hpf Urine WBC Clumps Many H (None) /hpf Ur Squamous Epith Cells 10 H (0-4) /hpf Urine Bacteria Occasional H (None) /hpf Urine HCG, Qual Not Detected (Not Detectd) 07/31/18 Range/Units 09:32 WBC (3.8-10.6) k/uL RBC (3.80-5.40) m/uL Hgb (11.4-16.0) gm/dL Hct (34.0-46.0) % MCV (80.0-100.0) fL MCH (25.0-35.0) pg MCHC (31.0-37.0) g/dL RDW (11.5-15.5) % Plt Count (150-450) k/uL Neutrophils % % Lymphocytes % % Monocytes % % Eosinophils % % Basophils % % Neutrophils # (1.3-7.7) k/uL Lymphocytes # (1.0-4.8) k/uL Monocytes # (0-1.0) k/uL Eosinophils # (0-0.7) k/uL Basophils # (0-0.2) k/uL Sodium 143 (137-145) mmol/L Potassium 3.9 (3.5-5.1) mmol/L Chloride 112 H (98-107) mmol/L Carbon Dioxide 24 (22-30) mmol/L Anion Gap 7 mmol/L BUN 9 (7-17) mg/dL Creatinine 0.65 (0.52-1.04) mg/dL Est GFR (CKD-EPI)AfAm >90 (>60 ml/min/1.73 sqM) Est GFR (CKD-EPI)NonAf >90 (>60 ml/min/1.73 sqM) Glucose 75 (74-99) mg/dL Calcium 8.9 (8.4-10.2) mg/dL Total Bilirubin 0.4 (0.2-1.3) mg/dL AST 28 (14-36) U/L ALT 27 (9-52) U/L Alkaline Phosphatase 76 (38-126) U/L Total Protein 6.5 (6.3-8.2) g/dL Albumin 3.6 (3.5-5.0) g/dL Urine Color Urine Appearance (Clear) Urine pH (5.0-8.0) Ur Specific [place] (1.001-1.035) Urine Protein (Negative) Urine Glucose (UA) (Negative) Urine Ketones (Negative) Urine Blood (Negative) Urine Nitrite (Negative) Urine Bilirubin (Negative) Urine Urobilinogen (<2.0) mg/dL Ur Leukocyte Esterase (Negative) Urine RBC (0-5) /hpf Urine WBC (0-5) /hpf Urine WBC Clumps (None) /hpf Ur Squamous Epith Cells (0-4) /hpf Urine Bacteria (None) /hpf Urine HCG, Qual (Not Detectd) Disposition Clinical Impression: UTI (urinary tract infection), Left flank pain Disposition: HOME SELF-CARE Condition: Good Instructions: Urinary Tract Infection in Women (ED) Additional Instructions: Patient advised to rest, remain hydrated. Make sure taking the antibiotic as prescribed. Take the Pyridium and antibiotics after medicine as prescribed as well. Close follow-up with primary care physician. Return to the emergency department if any alarming signs or symptoms occur. Prescriptions: Cephalexin [Keflex] 500 mg PO Q8HR #30 cap Ibuprofen 600 mg PO TID #20 tablet Phenazopyridine HCl [Pyridium] 100 mg PO TID #9 tab Is patient prescribed a controlled substance at d/c from ED?: No Referrals: Jason Marrufo DO [Primary Care Provider] - 1-2 days Time of Disposition: 10:18
[2018-07-31 09:41] LABS: Appearance,Urine Cloudy (Clear); Bacteria,Urine Occasional /hpf; Bilirubin,Urine Negative (Negative); Blood,Urine Moderate (Negative); Color,Urine Light Yellow; Glucose,Urine (UA) Negative (Negative); Ketones,Urine Negative (Negative); Leukocyte Esterase,Urine Large (Negative); Nitrite,Urine Negative (Negative); PH, Urine 6.5 (5.0-8.0); Protein,Urine 1+ (Negative); RBC,Urine 16 /hpf (0-5); Specific Gravity,Urine 1.008 (1.001-1.035); Squamous Epithelial Cell,Urine 10 /hpf (0-4); Urobilinogen,Urine <2.0 mg/dL (<2.0); WBC,Urine >182 /hpf (0-5)
[2018-07-31 09:46] LABS: Basophils % (A) 0 %; Eosinophils # (A) 0.3 k/uL (0-0.7); Eosinophils % (A) 2 %; HCT 48.2 % (34.0-46.0); HGB 15.3 gm/dL (11.4-16.0); Lymphocytes # (A) 1.3 k/uL (1.0-4.8); Lymphocytes % (A) 13 %; MCHC 31.6 g/dL (31.0-37.0); MCV 97.9 fL (80.0-100.0); Mean Platelet Volume 9.1; Monocytes # (A) 0.6 k/uL (0-1.0); Monocytes % (A) 6 %; Neutrophils # (A) 7.8 k/uL (1.3-7.7); Neutrophils % (A) 78 %; Platelet Count 131 k/uL (150-450); RBC 4.93 m/uL (3.80-5.40); RDW 13.3 % (11.5-15.5); WBC 10.1 k/uL (3.8-10.6)
[2018-07-31 09:55] LABS: ALT 27 U/L (9-52); AST 28 U/L (14-36); Albumin 3.6 g/dL (3.5-5.0); Alkaline Phosphatase 76 U/L (38-126); Anion Gap 7 mmol/L; Blood Urea Nitrogen 9 mg/dL (7-17); Calcium 8.9 mg/dL (8.4-10.2); Carbon Dioxide 24 mmol/L (22-30); Chloride 112 mmol/L (98-107); Glucose 75 mg/dL (74-99); Potassium 3.9 mmol/L (3.5-5.1); Sodium 143 mmol/L (137-145); Total Bilirubin 0.4 mg/dL (0.2-1.3); Total Protein 6.5 g/dL (6.3-8.2)
[2018-07-31] MEDS ORDERED: traMADol 50 MG STARTER PACK 3 TAB BTL PO STA (10:51)
[2018-07-31 11:19] VITALS: BP 102/64; PULSE 69; RESP 19; TEMP 98.6
== END 2018-07-31 11:22 | disposition home or self-care (01) ==
LOC: EC 08:46
DX: N39.0 Urinary tract infection, site not specified (principal); R19.7 Diarrhea, unspecified; M79.7 Fibromyalgia; G40.909 Epilepsy, unspecified, not intractable, without status epilepticus; K58.9 Irritable bowel syndrome, unspecified; E03.9 Hypothyroidism, unspecified; F41.9 Anxiety disorder, unspecified; F32.9 Major depressive disorder, single episode, unspecified; F20.9 Schizophrenia, unspecified; F17.200 Nicotine dependence, unspecified, uncomplicated; Z98.84 Bariatric surgery status; Z90.49 Acquired absence of other specified parts of digestive tract; Z79.899 Other long term (current) drug therapy; Z88.1 Allergy status to other antibiotic agents; Z88.5 Allergy status to narcotic agent; Z88.2 Allergy status to sulfonamides; Z91.048 Other nonmedicinal substance allergy status; Z88.6 Allergy status to analgesic agent
CPT/HCPCS: 36415; 80053; 85025; 81001; 81025; 87040; 87086; 99284; 96365; 96375 ×2; 96361; J2405; J0696; J1885

== ENCOUNTER 2018-09-12 22:55 | Emergency (ER) | payer OTHER ==
[2018-09-12 23:06] VITALS: TEMP 98.5
[2018-09-12] MEDS ORDERED: ORPHENADRINE 30 MG/ML 2 ML VIAL IM STA (23:16)
[2018-09-12] MEDS ORDERED: KETOROLAC 60 MG/2 ML VIAL IM STA (23:16)
--- NOTE | 2018-09-12 23:58 | XR ---
EXAMINATION TYPE: XR lumbar spine 2 or 3V DATE OF EXAM: 09/12/2018 COMPARISON: 02/24/2016 HISTORY: Back pain TECHNIQUE: 3 views FINDINGS: Vertebra have fairly normal spacing and alignment. Posterior elements are intact. Sacroilia c joints appear normal. There are clips from cholecystectomy. IMPRESSION: Negative lumbar spine exam.
--- NOTE | 2018-09-12 23:59 | XR ---
EXAMINATION TYPE: XR thoracic spine 2V DATE OF EXAM: 09/12/2018 COMPARISON: NONE HISTORY: Back pain TECHNIQUE: 3 views FINDINGS: Thoracic vertebra have fairly normal spacing and alignment. There is slight dextroscoliosis . There is anterior spurring in the lower thoracic spine. I see no compression fracture. There is no paraspinal mass. IMPRESSION: Negative thoracic spine exam.
--- NOTE | 2018-09-13 00:22 | ED ---
Back Pain HPI - General Chief Complaint: Back Pain/Injury Stated Complaint: Back pain Time Seen by Provider: 09/12/18 23:10 Source: patient, RN notes reviewed, old records reviewed Limitations: no limitations - History of Present Illness Initial Comments: Patient is a 38-year-old female was instructed to emergency with back spasms. Patient reports that she fell on stairs 4 days, and on her mid lower back. Patient states she's been having cramping. Worse with movement. No saddle anesthesias. No urinary symptoms. - Related Data Home Medications Medication Instructions Recorded Confirmed Levothyroxine Sodium [Synthroid] 300 mcg PO DAILY 09/23/14 04/07/18 Ibuprofen [Motrin] 800 mg PO Q8HR PRN 05/02/16 04/07/18 Ferrous Sulfate [Feosol] 325 mg PO DAILY 03/03/17 04/07/18 lamoTRIgine [LaMICtal] 200 mg PO HS 03/27/17 04/07/18 Magnesium Oxide [Mag-Ox] 250 mg PO DAILY 07/09/17 04/07/18 OXcarbazepine [Trileptal] 300 mg PO BID 07/09/17 04/07/18 OXcarbazepine [Trileptal] 600 mg PO BID 07/09/17 04/07/18 DULoxetine HCL [Cymbalta] 60 mg PO DAILY 10/09/17 04/07/18 Paliperidone IM [Invega Sustenna] 234 mg IM Q28D 10/09/17 04/07/18 Prazosin [Minipress] 1 mg PO HS 10/09/17 04/07/18 Cholecalciferol [Vitamin D3] 5,000 unit PO DAILY 12/14/17 04/07/18 DULoxetine HCL [Cymbalta] 30 mg PO DAILY 12/14/17 04/07/18 Previous Rx's Medication Instructions Recorded Gabapentin [Neurontin] 800 mg PO TID #90 tablet 06/19/15 lamoTRIgine [LaMICtal] 50 mg PO DAILY #30 tab 03/29/17 Nystatin 100,000 Unit/gm Powd 1 applic TOPICAL BID #30 gm 04/07/18 [Mycostatin Powder] Cephalexin [Keflex] 500 mg PO Q8HR #30 cap 07/31/18 Ibuprofen 600 mg PO TID #20 tablet 07/31/18 Phenazopyridine HCl [Pyridium] 100 mg PO TID #9 tab 07/31/18 Cyclobenzaprine [Flexeril] 10 mg PO TID #10 tab 09/13/18 Ketorolac [Toradol] 10 mg PO Q6HR #10 tab 09/13/18 Allergies Allergy/AdvReac Type Severity Reaction Status Date / Time ciprofloxacin [From Cipro] Allergy Unknown Rash/Hives Verified 09/13/18 00:01 morphine Allergy Unknown Anaphylaxis Verified 09/13/18 00:01 nitrofurantoin Allergy Unknown Rash/Hives Verified 09/13/18 00:01 [From Macrobid] nitrofurantoin Allergy Unknown Rash/Hives Verified 09/13/18 00:01 macrocrystalline [From Macrobid] sulfamethoxazole Allergy Unknown Rash/Hives Verified 09/13/18 00:01 [From Bactrim] trimethoprim [From Bactrim] Allergy Unknown Rash/Hives Verified 09/13/18 00:01 adhesive tape Allergy Rash/Hives Verified 09/13/18 00:01 alcohol Allergy Rash/Hives Verified 09/13/18 00:01 [From Mastisol Adhesive] gum mastic Allergy Rash/Hives Verified 09/13/18 00:01 [From Mastisol Adhesive] methyl salicylate Allergy Rash/Hives Verified 09/13/18 00:01 [From Mastisol Adhesive] storax Allergy Rash/Hives Verified 09/13/18 00:01 [From Mastisol Adhesive] tramadol [From Ultram] AdvReac Seizures Verified 09/13/18 00:01 PAPER TAPE Allergy PEELS Uncoded 04/07/18 20:55 SKIN,RASH STERI STRIPS Allergy RASH, Uncoded 04/07/18 20:55 PEELS SKIN Review of Systems ROS Statement: Those systems with pertinent positive or pertinent negative responses have been documented in the HPI. ROS Other: All systems not noted in ROS Statement are negative. Past Medical History Past Medical History: Fibromyalgia, Osteoarthritis (OA), Seizure Disorder, Thyroid Disorder Additional Past Medical History / Comment(s): Seizures, DDD lumbar, heniated discs lumbar and cervical, fibromyalgia, IBS, hypothryoidism, migraines, Fx knee 09/2015-healed with brace, L foot fractured a total of 5 times-had surgery with screws placed. 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 Past Anesthesia/Blood Transfusion Reactions: No Reported Reaction Past Psychological History: Anxiety, Bipolar, Depression, Panic Disorder, Schizophrenia Smoking Status: Current every day smoker Past Alcohol Use History: None Reported Past Drug Use History: Marijuana - Past Family History Father Family Medical History: Hypertension Additional Family Medical History / Comment(s): Father is about 53 yrs old and has back problems. Mother Family Medical History: Diabetes Mellitus Additional Family Medical History / Comment(s): Mother is about 53 yrs old General Exam - General Exam Comments Initial Comments: Obese 38 year old female, mild discomfort. Limitations: no limitations General appearance: alert, in no apparent distress Head exam: Present: atraumatic, normocephalic, normal inspection Eye exam: Present: normal appearance, PERRL, EOMI. Absent: scleral icterus, conjunctival injection, periorbital swelling ENT exam: Present: normal exam, mucous membranes moist Neck exam: Present: normal inspection. Absent: tenderness, meningismus, lymphadenopathy Respiratory exam: Present: normal lung sounds bilaterally. Absent: respiratory distress, wheezes, rales, rhonchi, stridor Cardiovascular Exam: Present: regular rate, normal rhythm, normal heart sounds. Absent: systolic murmur, diastolic murmur, rubs, gallop, clicks GI/Abdominal exam: Present: soft, normal bowel sounds. Absent: distended, tenderness, guarding, rebound, rigid Back exam: Present: normal inspection, muscle spasm (Right thoracic and lumbar paraspinal muscle spasm noted. ), paraspinal tenderness. Absent: vertebral tenderness Neurological exam: Present: alert, oriented X3 Psychiatric exam: Present: normal affect, normal mood Skin exam: Present: warm, dry, intact, normal color. Absent: rash Course Vital Signs 09/12/18 09/13/18 23:03 00:29 Temperature 98.5 F Pulse Rate 84 80 Respiratory 16 18 Rate Blood Pressure 107/80 112/81 O2 Sat by Pulse 98 96 Oximetry Medical Decision Making - Medical Decision Making 38 year old female with chronic pain presents to ED 4 days after falling down a few stairs with CC of thoracic and lower back pain. Denies saddle anesthesias and urinary symptoms. Patient has full ROM of lower extremities and normal sensation. Patient has R parapsinal muscle spasm. Given IM toradol and norflex. Patient reports some relief. Patient given Rx for flexeril and antiinflammatory medication. She is already on [place] per PCP. REturn parameters discussed. - Radiology Data Radiology results: report reviewed, image reviewed Normal thoracic and lumbar spine xray, no fracutes identified. Disposition Clinical Impression: Back spasm, Fall Disposition: HOME SELF-CARE Condition: Good Instructions: Acute Low Back Pain (ED) Additional Instructions: Follow up with primary care provider. Return to emergency department if any alarming signs or symptoms occur. Prescriptions: Cyclobenzaprine [Flexeril] 10 mg PO TID #10 tab Ketorolac [Toradol] 10 mg PO Q6HR #10 tab Is patient prescribed a controlled substance at d/c from ED?: No Referrals: Jason Marrufo DO [Primary Care Provider] - 1-2 days Time of Disposition: 00:21
[2018-09-13] MEDS ORDERED: HYDROcodone/APAP 5-325MG 1 EACH TAB PO STA (00:27)
[2018-09-13 00:30] VITALS: BP 112/81; PULSE 80; RESP 18
== END 2018-09-13 00:36 | disposition home or self-care (01) ==
LOC: EC 22:55
DX: M62.830 Muscle spasm of back (principal); F41.0 Panic disorder [episodic paroxysmal anxiety]; F31.9 Bipolar disorder, unspecified; G40.909 Epilepsy, unspecified, not intractable, without status epilepticus; F17.200 Nicotine dependence, unspecified, uncomplicated; Z79.899 Other long term (current) drug therapy; Z88.1 Allergy status to other antibiotic agents; Z88.2 Allergy status to sulfonamides; Z91.048 Other nonmedicinal substance allergy status; Z88.5 Allergy status to narcotic agent; Z88.8 Allergy status to other drugs, medicaments and biological substances; W19.XXXA Unspecified fall, initial encounter
CPT/HCPCS: 72070; 72100; 99284; 96372 ×2; J2360; J1885

== ENCOUNTER 2019-06-14 17:00 | Emergency (ER) | payer OTHER ==
[2019-06-14 17:13] VITALS: RESP 18
[2019-06-14 17:16] LABS: Glucose,Whole Blood 280 mg/dL (75-99)
[2019-06-14 18:54] LABS: Basophils # (A) 0.1 k/uL (0-0.2); Basophils % (A) 1 %; Eosinophils # (A) 0.2 k/uL (0-0.7); Eosinophils % (A) 3 %; HCT 42.1 % (34.0-46.0); HGB 13.7 gm/dL (11.4-16.0); Lymphocytes % (A) 43 %; MCH 31.4 pg (25.0-35.0); MCHC 32.5 g/dL (31.0-37.0); MCV 96.8 fL (80.0-100.0); Mean Platelet Volume 10.2; Monocytes # (A) 0.6 k/uL (0-1.0); Monocytes % (A) 8 %; Neutrophils # (A) 2.8 k/uL (1.3-7.7); Neutrophils % (A) 41 %; Platelet Count 149 k/uL (150-450); RBC 4.35 m/uL (3.80-5.40); RDW 14.8 % (11.5-15.5); WBC 6.9 k/uL (3.8-10.6)
--- NOTE | 2019-06-14 18:59 | CT ---
EXAMINATION TYPE: CT brain wo con DATE OF EXAM: 06/14/2019 COMPARISON: 11/14/2017 and 10/09/2017 HISTORY: Seizure activity. Hx epilepsy CT DLP: 1093.4 mGycm. Automated Exposure Control for Dose Reduction was Utilized. TECHNIQUE: CT scan of the head is performed without contrast. FINDINGS: There is no acute intracranial hemorrhage, mass effect, or midline shift identified. No s uspicious extra-axial fluid collection. The ventricles and sulci are within normal limits in size. The globes are intact and the visualized sinuses are clear. IMPRESSION: No acute intracranial hemorrhage, mass effect, or midline shift is seen.
[2019-06-14 19:00] LABS: ALT 15 U/L (9-52); AST 36 U/L (14-36); African American GFR (CKD) >90 (>60 ml/min/1.73 sqM); Albumin 3.8 g/dL (3.5-5.0); Alkaline Phosphatase 68 U/L (38-126); Anion Gap 9 mmol/L; Blood Urea Nitrogen 6 mg/dL (7-17); Calcium 9.2 mg/dL (8.4-10.2); Carbon Dioxide 21 mmol/L (22-30); Chloride 109 mmol/L (98-107); Potassium 3.7 mmol/L (3.5-5.1); Sodium 139 mmol/L (137-145); Total Bilirubin 0.4 mg/dL (0.2-1.3); Total Protein 7.5 g/dL (6.3-8.2)
--- NOTE | 2019-06-14 19:00 | XR ---
EXAMINATION TYPE: XR chest 2V DATE OF EXAM: 06/14/2019 COMPARISON: 02/09/2016 HISTORY: Cough and chest pain. Possible seizure. TECHNIQUE: Frontal and lateral views of the chest are obtained. FINDINGS: There is no focal air space opacity, pleural effusion, or pneumothorax seen. The cardiac silhouette size is within normal limits. The osseous structures are intact. Minimal degenerative ch anges of the thoracic spine. Postsurgical change of the distal right clavicle and rotator cuff. IMPRESSION: No acute cardiopulmonary process.
[2019-06-14 19:07] LABS: Glucose 45 mg/dL (74-99)
[2019-06-14 19:09] LABS: Appearance,Urine Clear (Clear); Bilirubin,Urine Negative (Negative); Blood,Urine Negative (Negative); Color,Urine Light Yellow; Glucose,Urine (UA) Negative (Negative); Ketones,Urine Negative (Negative); Leukocyte Esterase,Urine Negative (Negative); Nitrite,Urine Negative (Negative); Protein,Urine Negative (Negative); Urobilinogen,Urine <2.0 mg/dL (<2.0)
[2019-06-14 19:23] LABS: Glucose,Whole Blood 106 mg/dL (75-99)
[2019-06-14 20:03] LABS: Glucose,Whole Blood 107 mg/dL (75-99)
--- NOTE | 2019-06-14 20:39 | ED ---
Seizure HPI - General Chief Complaint: Seizure Stated Complaint: diabetic issue Time Seen by Provider: 06/14/19 17:15 Source: patient, EMS Mode of arrival: EMS Limitations: altered mental status - History of Present Illness Initial Comments: The patient is a 38-year-old female who presents the emergency room with reported seizure. The patient does have a history of epilepsy for which she is supposed to be on Trileptal. She reports that she went into a gas station order to get an energy drink. States that the last she remembers was reaching into e refrigerator. Her was outside pumping gas. He did witness the episode and states that she did have a seizure. She had full tonic-clonic shaking only lasted several minutes. EMS was called. She was postictal. She did not bite her tongue. There is no bowel or bladder incontinence. The patient states that prior to the episode she felt as if she was going to pass out. It is unknown if the patient hit her head. Denies any headaches or visual changes. Denies any unilateral numbness or weakness. She denies any chest pain or shortness of breath prior to the episode. Does not currently see a neurologist. States that her Trileptal is normally prescribed by her primary care physician. She has been out of medication for 1 week. Cannot describe to me the last time she had a seizure. She denies any abdominal pain or changes in her bowel or bladder habits. She denies possibility of . There are no other alleviating, precipitating or modifying factors - Related Data Home Medications Medication Instructions Recorded Confirmed Levothyroxine Sodium [Synthroid] 300 mcg PO DAILY 09/23/14 04/07/18 Ibuprofen [Motrin] 800 mg PO Q8HR PRN 05/02/16 04/07/18 Ferrous Sulfate [Feosol] 325 mg PO DAILY 03/03/17 04/07/18 lamoTRIgine [LaMICtal] 200 mg PO HS 03/27/17 04/07/18 Magnesium Oxide [Mag-Ox] 250 mg PO DAILY 07/09/17 04/07/18 OXcarbazepine [Trileptal] 300 mg PO BID 07/09/17 04/07/18 OXcarbazepine [Trileptal] 600 mg PO BID 07/09/17 04/07/18 DULoxetine HCL [Cymbalta] 60 mg PO DAILY 10/09/17 04/07/18 Paliperidone IM [Invega Sustenna] 234 mg IM Q28D 10/09/17 04/07/18 Prazosin [Minipress] 1 mg PO HS 10/09/17 04/07/18 Cholecalciferol [Vitamin D3] 5,000 unit PO DAILY 12/14/17 04/07/18 DULoxetine HCL [Cymbalta] 30 mg PO DAILY 12/14/17 04/07/18 Previous Rx's Medication Instructions Recorded Gabapentin [Neurontin] 800 mg PO TID #90 tablet 06/19/15 lamoTRIgine [LaMICtal] 50 mg PO DAILY #30 tab 03/29/17 Nystatin 100,000 Unit/gm Powd 1 applic TOPICAL BID #30 gm 04/07/18 [Mycostatin Powder] Cephalexin [Keflex] 500 mg PO Q8HR #30 cap 07/31/18 Ibuprofen 600 mg PO TID #20 tablet 07/31/18 Phenazopyridine HCl [Pyridium] 100 mg PO TID #9 tab 07/31/18 Cyclobenzaprine [Flexeril] 10 mg PO TID #10 tab 09/13/18 Ketorolac [Toradol] 10 mg PO Q6HR #10 tab 09/13/18 OXcarbazepine [Trileptal] 900 mg PO BID #84 tab 06/14/19 Allergies Allergy/AdvReac Type Severity Reaction Status Date / Time ciprofloxacin [From Cipro] Allergy Unknown Rash/Hives Verified 06/14/19 19:06 morphine Allergy Unknown Anaphylaxis Verified 06/14/19 19:06 nitrofurantoin Allergy Unknown Rash/Hives Verified 06/14/19 19:06 [From Macrobid] nitrofurantoin Allergy Unknown Rash/Hives Verified 06/14/19 19:06 macrocrystalline [From Macrobid] sulfamethoxazole Allergy Unknown Rash/Hives Verified 06/14/19 19:06 [From Bactrim] trimethoprim [From Bactrim] Allergy Unknown Rash/Hives Verified 06/14/19 19:06 adhesive tape Allergy Rash/Hives Verified 06/14/19 19:06 alcohol Allergy Rash/Hives Verified 06/14/19 19:06 [From Mastisol Adhesive] gum mastic Allergy Rash/Hives Verified 08/02/19 19:06 [From Mastisol Adhesive] methyl salicylate Allergy Rash/Hives Verified 06/14/19 19:06 [From Mastisol Adhesive] storax Allergy Rash/Hives Verified 06/14/19 19:06 [From Mastisol Adhesive] tramadol [From Ultram] AdvReac Seizures Verified 06/14/19 19:06 PAPER TAPE Allergy PEELS Uncoded 06/14/19 17:08 SKIN,RASH STERI STRIPS Allergy RASH, Uncoded 06/14/19 17:08 PEELS SKIN Review of Systems ROS Statement: Those systems with pertinent positive or pertinent negative responses have been documented in the HPI. ROS Other: All systems not noted in ROS Statement are negative. Past Medical History Past Medical History: Fibromyalgia, Osteoarthritis (OA), Seizure Disorder, Thyro id Disorder Additional Past Medical History / Comment(s): Seizures, DDD lumbar, heniated discs lumbar and cervical, fibromyalgia, IBS, hypothryoidism, migraines, Fx knee 09/2015-healed with brace, L foot fractured a total of 5 times-had surgery with screws placed. 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 Past Anesthesia/Blood Transfusion Reactions: No Reported Reaction Past Psychological History: Anxiety, Bipolar, Depression, Panic Disorder, Schizophrenia Smoking Status: Current every day smoker Past Alcohol Use History: None Reported Past Drug Use History: Marijuana - Past Family History Father Family Medical History: Hypertension Additional Family Medical History / Comment(s): Father is about 53 yrs old and has back problems. Mother Family Medical History: Diabetes Mellitus Additional Family Medical History / Comment(s): Mother is about 53 yrs old General Exam Limitations: altered mental status General appearance: alert, in no apparent distress Head exam: Present: atraumatic, normocephalic, normal inspection Eye exam: Present: normal appearance, PERRL, EOMI. Absent: scleral icterus, conjunctival injection, periorbital swelling ENT exam: Present: normal exam, mucous membranes moist Neck exam: Present: normal inspection. Absent: tenderness, meningismus, lymphadenopathy Respiratory exam: Present: normal lung sounds bilaterally. Absent: respiratory distress, wheezes, rales, rhonchi, stridor Cardiovascular Exam: Present: regular rate, normal rhythm, normal heart sounds. Absent: systolic murmur, diastolic murmur, rubs, gallop, clicks GI/Abdominal exam: Present: soft, normal bowel sounds. Absent: distended, tenderness, guarding, rebound, rigid Extremities exam: Present: normal inspection, full ROM, normal capillary refill. Absent: tenderness, pedal edema, joint swelling, calf tenderness Back exam: Present: normal inspection Neurological exam: Present: alert, oriented X3, CN II-XII intact Psychiatric exam: Present: normal affect, normal mood Skin exam: Present: warm, dry, intact, normal color. Absent: rash Course Vital Signs 06/14/19 06/14/19 06/14/19 17:08 19:00 20:00 Temperature 98.8 F Pulse Rate 93 82 71 Respiratory 18 18 18 Rate Blood Pressure 116/70 99/65 103/60 O2 Sat by Pulse 94 L 98 98 Oximetry 06/14/19 21:03 Temperature 97.8 F Pulse Rate 70 Respiratory 18 Rate Blood Pressure 108/80 O2 Sat by Pulse 99 Oximetry Medical Decision Making - Medical Decision Making Upon arrival the patient was placed into room 1. I did obtain a history from EMS. She is hooked to continuous pulse ox and cardiac monitoring. A thorough history and physical exam was performed. EMS reported that the when he arrived on scene they did perform an Accu-Chek on the patient and her sugars were in the 50s. Because of this they did provide her with an amp of D50. They did recheck her sugars and she remained hyperglycemic. The patient is brought to our fa cility and Accu-Chek is performed immediately which demonstrates the patient's blood sugars are in the 200s. We completed a 12-lead EKG which demonstrated a normal sinus rhythm. I did recommend laboratory studies, a urinalysis and a CT of her head as it is unsure if the patient did sustain blunt head trauma. The patient did agree to this. Upon return of the laboratory studies, the patient does have a low glucose level on her BMP. We did recheck the patient at this time and her sugars are near 100. I did discuss the results with the patient. I did recommend hospital admission in order to continue to trend the patient's glucose level. The patient refused stating that she has children at home that she had to take care of. I did discuss the risks of leaving to include further seizure-like activity or syncope. Also includes permanent disability and . The patient understood this. She is currently of sound mind and capable of making this decision. Her is at bedside and agrees with her decision. I did inform the patient that I would have her leave AGAINST MEDICAL ADVICE for which the patient understood and agreed. I did provide the patient with a prescription for her Trileptal. She will follow up with her primary care physician for further medication refills. I also informed her that she needs to follow-up with a neurologist. I did provide her with a referral. The patient remained in stable condition and was discharged AGAINST MEDICAL ADVICE - Differential Diagnosis acute breakthrough seizure, epilepsy, acute hypoglycemia, syncope - Lab Data Result diagrams: 06/14/19 17:20 06/14/19 17:20 Lab Results 06/14/19 06/14/19 06/14/19 Range/Units 17:15 17:20 17:20 WBC 6.9 (3.8-10.6) k/uL RBC 4.35 (3.80-5.40) m/uL Hgb 13.7 (11.4-16.0) gm/dL Hct 42.1 (34.0-46.0) % MCV 96.8 (80.0-100.0) fL MCH 31.4 (25.0-35.0) pg MCHC 32.5 (31.0-37.0) g/dL RDW 14.8 (11.5-15.5) % Plt Count 149 L (150-450) k/uL Neutrophils % 41 % Lymphocytes % 43 % Monocytes % 8 % Eosinophils % 3 % Basophils % 1 % Neutrophils # 2.8 (1.3-7.7) k/uL Lymphocytes # 3.0 (1.0-4.8) k/uL Monocytes # 0.6 (0-1.0) k/uL Eosinophils # 0.2 (0-0.7) k/uL Basophils # 0.1 (0-0.2) k/uL Sodium 139 (137-145) mmol/L Potassium 3.7 (3.5-5.1) mmol/L Chloride 109 H (98-107) mmol/L Carbon Dioxide 21 L (22-30) mmol/L Anion Gap 9 mmol/L BUN 6 L (7-17) mg/dL Creatinine 0.54 (0.52-1.04) mg/dL Est GFR (CKD-EPI)AfAm >90 (>60 ml/min/1.73 sqM) Est GFR (CKD-EPI)NonAf >90 (>60 ml/min/1.73 sqM) Glucose 45 L* (74-99) mg/dL POC Glucose (mg/dL) 280 H (75-99) mg/dL POC Glu Grated Cheese Maker ID [place] Calcium 9.2 (8.4-10.2) mg/dL Total Bilirubin 0.4 (0.2-1.3) mg/dL AST 36 (14-36) U/L ALT 15 (9-52) U/L Alkaline Phosphatase 68 (38-126) U/L Total Protein 7.5 (6.3-8.2) g/dL Albumin 3.8 (3.5-5.0) g/dL Urine Color Urine Appearance (Clear) Urine pH (5.0-8.0) Ur Specific [place] (1.001-1.035) Urine Protein (Negative) Urine Glucose (UA) (Negative) Urine Ketones (Negative) Urine Blood (Negative) Urine Nitrite (Negative) Urine Bilirubin (Negative) Urine Urobilinogen (<2.0) mg/dL Ur Leukocyte Esterase (Negative) Urine HCG, Qual (Not Detectd) 06/14/19 06/14/19 06/14/19 Range/Units 19:00 19:00 19:10 WBC (3.8-10.6) k/uL RBC (3.80-5.40) m/uL Hgb (11.4-16.0) gm/dL Hct (34.0-46.0) % MCV (80.0-100.0) fL MCH (25.0-35.0) pg MCHC (31.0-37.0) g/dL RDW (11.5-15.5) % Plt Count (150-450) k/uL Neutrophils % % Lymphocytes % % Monocytes % % Eosinophils % % Basophils % % Neutrophils # (1.3-7.7) k/uL Lymphocytes # (1.0-4.8) k/uL Monocytes # (0-1.0) k/uL Eosinophils # (0-0.7) k/uL Basophils # (0-0.2) k/uL Sodium (137-145) mmol/L Potassium (3.5-5.1) mmol/L Chloride (98-107) mmol/L Carbon Dioxide (22-30) mmol/L Anion Gap mmol/L BUN (7-17) mg/dL Creatinine (0.52-1.04) mg/dL Est GFR (CKD-EPI)AfAm (>60 ml/min/1.73 sqM) Est GFR (CKD-EPI)NonAf (>60 ml/min/1.73 sqM) Glucose (74-99) mg/dL POC Glucose (mg/dL) 106 H (75-99) mg/dL POC Glu Grated Cheese Maker ID Ariadne Kaminski Calcium (8.4-10.2) mg/dL Total Bilirubin (0.2-1.3) mg/dL AST (14-36) U/L ALT (9-52) U/L Alkaline Phosphatase (38-126) U/L Total Protein (6.3-8.2) g/dL Albumin (3.5-5.0) g/dL Urine Color Light Yellow Urine Appearance Clear (Clear) Urine pH 7.0 (5.0-8.0) Ur Specific [place] 1.000 L (1.001-1.035) Urine Protein Negative (Negative) Urine Glucose (UA) Negative (Negative) Urine Ketones Negative (Negative) Urine Blood Negative (Negative) Urine Nitrite Negative (Negative) Urine Bilirubin Negative (Negative) Urine Urobilinogen <2.0 (<2.0) mg/dL Ur Leukocyte Esterase Negative (Negative) Urine HCG, Qual Not Detected (Not Detectd) 06/14/19 Range/Units 20:02 WBC (3.8-10.6) k/uL RBC (3.80-5.40) m/uL Hgb (11.4-16.0) gm/dL Hct (34.0-46.0) % MCV (80.0-100.0) fL MCH (25.0-35.0) pg MCHC (31.0-37.0) g/dL RDW (11.5-15.5) % Plt Count (150-450) k/uL Neutrophils % % Lymphocytes % % Monocytes % % Eosinophils % % Basophils % % Neutrophils # (1.3-7.7) k/uL Lymphocytes # (1.0-4.8) k/uL Monocytes # (0-1.0) k/uL Eosinophils # (0-0.7) k/uL Basophils # (0-0.2) k/uL Sodium (137-145) mmol/L Potassium (3.5-5.1) mmol/L Chloride (98-107) mmol/L Carbon Dioxide (22-30) mmol/L Anion Gap mmol/L BUN (7-17) mg/dL Creatinine (0.52-1.04) mg/dL Est GFR (CKD-EPI)AfAm (>60 ml/min/1.73 sqM) Est GFR (CKD-EPI)NonAf (>60 ml/min/1.73 sqM) Glucose (74-99) mg/dL POC Glucose (mg/dL) 107 H (75-99) mg/dL POC Glu Grated Cheese Maker ID Jaya, Lexie Calcium (8.4-10.2) mg/dL Total Bilirubin (0.2-1.3) mg/dL AST (14-36) U/L ALT (9-52) U/L Alkaline Phosphatase (38-126) U/L Total Protein (6.3-8.2) g/dL Albumin (3.5-5.0) g/dL Urine Color Urine Appearance (Clear) Urine pH (5.0-8.0) Ur Specific [place] (1.001-1.035) Urine Protein (Negative) Urine Glucose (UA) (Negative) Urine Ketones (Negative) Urine Blood (Negative) Urine Nitrite (Negative) Urine Bilirubin (Negative) Urine Urobilinogen (<2.0) mg/dL Ur Leukocyte Esterase (Negative) Urine HCG, Qual (Not Detectd) - EKG Data EKG Comments: EKG demonstrates a normal sinus rhythm with a ventricular rate of 92. [place] in terval 120. QRS 98. QTC 457. There are no acute ST segment elevations or depressions concerning for ischemic changes. There is an incomplete bundle- branch block Disposition Clinical Impression: Epileptic seizure, Breakthrough seizure Disposition: Left Against Medical Advice Condition: Serious Instructions (If sedation given, give patient instructions): Recurrent Seizures in Adults (ED) Additional Instructions: I recommended hospital admission. Please start taking your seizure medication. You need to follow with a neurologist. Return to the emergency room for any new or worsening symptoms Prescriptions: OXcarbazepine [Trileptal] 900 mg PO BID #84 tab Is patient prescribed a controlled substance at d/c from ED?: No Referrals: aJson Marrufo DO [Primary Care Provider] - 1-2 days Nichole Olson MD [Medical Doctor] - 1-2 days Time of Disposition: 20:51
[2019-06-14 21:04] VITALS: BP 108/80; PULSE 70; TEMP 97.8
== END 2019-06-14 21:04 | disposition left against medical advice (07) ==
LOC: EC 17:00
DX: G40.909 Epilepsy, unspecified, not intractable, without status epilepticus (principal); R73.9 Hyperglycemia, unspecified; E07.9 Disorder of thyroid, unspecified; F41.0 Panic disorder [episodic paroxysmal anxiety]; F31.9 Bipolar disorder, unspecified; F20.9 Schizophrenia, unspecified; Z79.890 Hormone replacement therapy; Z79.899 Other long term (current) drug therapy; Z88.1 Allergy status to other antibiotic agents; Z88.2 Allergy status to sulfonamides; Z88.5 Allergy status to narcotic agent; Z91.048 Other nonmedicinal substance allergy status; Z88.8 Allergy status to other drugs, medicaments and biological substances; Z98.84 Bariatric surgery status
CPT/HCPCS: 36415; 70450; 71046; 80053; 81003; 81025; 85025; 93005; 99285

== ENCOUNTER 2019-07-22 17:46 | Inpatient (IN) | payer MEDICAID, OTHER ==
--- NOTE | 2019-07-22 18:31 | ED ---
Psych HPI <Xu Constantino - Last Filed: 07/23/19 00:05> - General Source: patient, RN notes reviewed, old records reviewed Mode of arrival: ambulatory - History of Present Illness MD Complaint: suicidal ideation, feels depressed -: days(s) Associated Psychiatric Symptoms: depression, suicidal ideation History of same: Yes Quality: constant Improves With: none Worsens With: alcohol Context: recent alcohol abuse, not taking psychiatric medications Associated Symptoms: denies other symptoms Treatments Prior to Arrival: placed on mental health hold If Self Harm: admits thoughts of self harm <Doug Hector - Last Filed: 07/23/19 11:22> - General Chief Complaint: Psychiatric Symptoms Stated Complaint: mental health Time Seen by Provider: 07/22/19 17:53 - History of Present Illness Initial Comments: This is a 39-year-old female. She presents today for evaluation regards to psychiatric illness. Patient with severe intoxication last night which led to her cutting herself. She is not aware of events. Patient presents today for evaluation of depression also has psychiatric history, history of seizure disorder has not taken any medications today. Patient denies alcohol or drug use today (Doug Hector) - Related Data Home Medications Medication Instructions Recorded Confirmed Levothyroxine Sodium [Synthroid] 300 mcg PO DAILY 09/23/14 07/22/19 Ferrous Sulfate [Feosol] 325 mg PO BID 03/03/17 07/22/19 lamoTRIgine [LaMICtal] 200 mg PO HS 03/27/17 07/22/19 OXcarbazepine [Trileptal] 300 mg PO BID 07/09/17 07/22/19 OXcarbazepine [Trileptal] 600 mg PO BID 07/09/17 07/22/19 DULoxetine HCL [Cymbalta] 90 mg PO DAILY 12/14/17 07/22/19 Cyclobenzaprine [Flexeril] 10 mg PO TID PRN 07/22/19 07/22/19 Gabapentin [Neurontin] 800 mg PO TID 07/22/19 07/22/19 HYDROcodone/APAP 10-325MG [[place] 1 tab PO QID PRN 07/22/19 07/22/19 10-325] Previous Rx's Medication Instructions Recorded lamoTRIgine [LaMICtal] 50 mg PO DAILY #30 tab 03/29/17 Allergies Allergy/AdvReac Type Severity Reaction Status Date / Time ciprofloxacin [From Cipro] Allergy Unknown Rash/Hives Verified 07/22/19 18:06 morphine Allergy Unknown Anaphylaxis Verified 07/22/19 18:06 nitrofurantoin Allergy Unknown Rash/Hives Verified 07/22/19 18:06 [From Macrobid] nitrofurantoin Allergy Unknown Rash/Hives Verified 07/22/19 18:06 macrocrystalline [From Macrobid] sulfamethoxazole Allergy Unknown Rash/Hives Verified 07/22/19 18:06 [From Bactrim] trimethoprim [From Bactrim] Allergy Unknown Rash/Hives Verified 07/22/19 18:06 adhesive tape Allergy Rash/Hives Verified 07/22/19 18:06 alcohol Allergy Rash/Hives Verified 07/22/19 18:06 [From Mastisol Adhesive] gum mastic Allergy Rash/Hives Verified 07/22/19 18:06 [From Mastisol Adhesive] methyl salicylate Allergy Rash/Hives Verified 07/22/19 18:06 [From Mastisol Adhesive] storax Allergy Rash/Hives Verified 07/22/19 18:06 [From Mastisol Adhesive] tramadol [From Ultram] AdvReac Seizures Verified 07/22/19 18:06 PAPER TAPE Allergy PEELS Uncoded 07/22/19 17:51 SKIN,RASH STERI STRIPS Allergy RASH, Uncoded 07/22/19 17:51 PEELS SKIN Review of Systems ROS Other: All systems not noted in ROS Statement are negative. <Xu Constantino - Last Filed: 07/23/19 00:05> ROS Other: All systems not noted in ROS Statement are negative. <Doug Hector - Last Filed: 07/23/19 11:22> ROS Statement: Those systems with pertinent positive or pertinent negative responses have been documented in the HPI. Past Medical History Past Medical History: Fibromyalgia, Osteoarthritis (OA), Seizure Disorder, Thyroid Disorder Additional Past Medical History / Comment(s): Seizures, DDD lumbar, heniated discs lumbar and cervical, fibromyalgia, IBS, hypothryoidism, migraines, Fx knee 09/2015-healed with brace, L foot fractured a total of 5 times-had surgery with screws placed. 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 Past Anesthesia/Blood Transfusion Reactions: No Reported Reaction Past Psychological History: Anxiety, Bipolar, Depression, Panic Disorder, Schizophrenia Smoking Status: Current every day smoker Past Alcohol Use History: None Reported Past Drug Use History: Marijuana - Past Family History Father Family Medical History: Hypertension Additional Family Medical History / Comment(s): Father is about 53 yrs old and has back problems. Mother Family Medical History: Diabetes Mellitus Additional Family Medical History / Comment(s): Mother is about 53 yrs old <Doug Hector - Last Filed: 07/23/19 11:22> General Exam Limitations: no limitations General appearance: alert, in no apparent distress Head exam: Present: atraumatic, normocephalic, normal inspection Eye exam: Present: normal appearance, EOMI. Absent: scleral icterus, conjunctival injection, periorbital swelling ENT exam: Present: normal exam, mucous membranes moist Neck exam: Present: normal inspection. Absent: tenderness, meningismus, lymphad enopathy Respiratory exam: Present: normal lung sounds bilaterally. Absent: respiratory distress, wheezes, rales, rhonchi, stridor Cardiovascular Exam: Present: normal rhythm, tachycardia, normal heart sounds. Absent: systolic murmur, diastolic murmur, rubs, gallop, clicks GI/Abdominal exam: Present: soft, normal bowel sounds. Absent: distended, tenderness, guarding, rebound, rigid Extremities exam: Present: normal inspection, full ROM, normal capillary refill. Absent: tenderness, pedal edema, joint swelling, calf tenderness Back exam: Present: normal inspection Neurological exam: Present: alert, oriented X3, CN II-XII intact Psychiatric exam: Present: normal affect, normal mood Skin exam: Present: warm, dry, intact, normal color. Absent: rash <Doug Hector - Last Filed: 07/23/19 11:22> Course <Xu Constantino - Last Filed: 07/23/19 00:05> <Doug Hector - Last Filed: 07/23/19 11:22> Vital Signs 07/22/19 07/23/19 07/23/19 17:48 01:35 01:41 Temperature 99.4 F Pulse Rate 121 H 117 H 110 H Respiratory 18 16 16 Rate Blood Pressure 137/83 O2 Sat by Pulse 97 Oximetry 07/23/19 07/23/19 06:28 10:54 Temperature 98.6 F Pulse Rate 87 93 Respiratory 18 18 Rate Blood Pressure 119/87 116/83 O2 Sat by Pulse 96 96 Oximetry - Reevaluation(s) Reevaluation #1: 07/22/19 18:30 Medical clear for psychiatric evaluation (Doug Hector) Reevaluation #2: 07/23/19 00:05 I did reevaluate patient the patient after shift change. Patient does admit to being depressed and suicidal suicidal. She did try to cut herself. She also feels short of breath at this time. Examination reveals diminished breath sounds with wheezing especially in the right base. She is a smoker and does relate she needs to quit. 07/23/19 00:06 Has been ordered. (Xu Constantino) Reevaluation #3: 07/23/19 00:06 Clinical certain was filled out by me. 07/23/19 00:06 Patient is pending transfer due to no bed availability in this facility (Xu Constantino) Medical Decision Making - Lab Data Result diagrams: 07/23/19 03:55 07/23/19 03:55 <Doug Hector - Last Filed: 07/23/19 11:22> - Medical Decision Making 39 female the ER, patient be transferred for inpatient psychiatric evaluation and treatment (Doug Hector) - Lab Data Lab Results 07/23/19 07/23/19 Range/Units 03:55 03:55 WBC 4.7 (3.8-10.6) k/uL RBC 4.32 (3.80-5.40) m/uL Hgb 13.0 (11.4-16.0) gm/dL Hct 39.9 (34.0-46.0) % MCV 92.4 (80.0-100.0) fL MCH 30.1 (25.0-35.0) pg MCHC 32.6 (31.0-37.0) g/dL RDW 13.5 (11.5-15.5) % Plt Count 144 L (150-450) k/uL Neutrophils % 40 % Lymphocytes % 45 % Monocytes % 7 % Eosinophils % 4 % Basophils % 2 % Neutrophils # 1.9 (1.3-7.7) k/uL Lymphocytes # 2.1 (1.0-4.8) k/uL Monocytes # 0.3 (0-1.0) k/uL Eosinophils # 0.2 (0-0.7) k/uL Basophils # 0.1 (0-0.2) k/uL Sodium 138 (137-145) mmol/L Potassium 4.2 (3.5-5.1) mmol/L Chloride 105 (98-107) mmol/L Carbon Dioxide 28 (22-30) mmol/L Anion Gap 5 mmol/L BUN 14 (7-17) mg/dL Creatinine 0.51 L (0.52-1.04) mg/dL Est GFR (CKD-EPI)AfAm >90 (>60 ml/min/1.73 sqM) Est GFR (CKD-EPI)NonAf >90 (>60 ml/min/1.73 sqM) Glucose 87 (74-99) mg/dL Calcium 8.6 (8.4-10.2) mg/dL Total Bilirubin 0.2 (0.2-1.3) mg/dL AST 25 (14-36) U/L ALT 29 (9-52) U/L Alkaline Phosphatase 73 (38-126) U/L Total Protein 6.2 L (6.3-8.2) g/dL Albumin 3.3 L (3.5-5.0) g/dL HCG, Qual Not Detected Disposition <Xu Constantino - Last Filed: 07/23/19 00:05> Is patient prescribed a controlled substance at d/c from ED?: No <Doug Hector - Last Filed: 07/23/19 11:22> Clinical Impression: Acute anxiety, Depression, Suicidal ideation Disposition: TRANSFER TO PSYCH HOSP/UNIT Condition: Fair Instructions (If sedation given, give patient instructions): Depression (ED) Referrals: Jason Marrufo DO [Primary Care Provider] - 1-2 days
[2019-07-22] MEDS ORDERED: OXcarbazepine 300 MG TAB PO STA (18:44)
[2019-07-22] MEDS ORDERED: lamoTRIgine 25 MG TAB PO SCH (20:00)
[2019-07-22] MEDS: LEVOTHYROXINE 100 MCG TAB PO SCH (20:26)
[2019-07-22] MEDS: DULoxetine HCL 30 MG CAPSULE.DR PO SCH (20:28)
[2019-07-22] MEDS: FERROUS SULFATE 325 MG TAB PO SCH (20:33)
[2019-07-22] MEDS: GABAPENTIN 400 MG CAP PO SCH (20:33)
[2019-07-22] MEDS ORDERED: OXcarbazepine 150 MG TAB PO SCH (21:00)
[2019-07-22] MEDS ORDERED: LAMOTRIGINE 200 MG PO SCH (21:00)
[2019-07-22] MEDS ORDERED: FERROUS SULFATE 325 MG TAB PO SCH (21:00)
[2019-07-22] MEDS ORDERED: OXCARBAZEPINE 600 MG PO SCH (21:00)
[2019-07-22] MEDS ORDERED: GABAPENTIN 800 MG PO SCH (22:00)
[2019-07-22] MEDS: HYDROcodone/APAP 10-325MG 1 EACH TAB PO PRN (22:46)
[2019-07-22] MEDS: lamoTRIgine 100 MG TAB PO SCH (23:03)
[2019-07-22] MEDS ORDERED: NICOTINE 21MG/24HR PATCH TRANSDERM STA (23:18)
[2019-07-23] MEDS ORDERED: IPRATROPIUM-ALBUTEROL 3 ML NEB INHALATION STA (00:03)
[2019-07-23 04:04] LABS: Basophils # (A) 0.1 k/uL (0-0.2); Basophils % (A) 2 %; Eosinophils # (A) 0.2 k/uL (0-0.7); Eosinophils % (A) 4 %; HCT 39.9 % (34.0-46.0); Lymphocytes # (A) 2.1 k/uL (1.0-4.8); Lymphocytes % (A) 45 %; MCH 30.1 pg (25.0-35.0); MCHC 32.6 g/dL (31.0-37.0); MCV 92.4 fL (80.0-100.0); Mean Platelet Volume 8.7; Monocytes # (A) 0.3 k/uL (0-1.0); Monocytes % (A) 7 %; Neutrophils # (A) 1.9 k/uL (1.3-7.7); Neutrophils % (A) 40 %; Platelet Count 144 k/uL (150-450); RBC 4.32 m/uL (3.80-5.40); RDW 13.5 % (11.5-15.5); WBC 4.7 k/uL (3.8-10.6)
[2019-07-23 04:16] LABS: ALT 29 U/L (9-52); AST 25 U/L (14-36); African American GFR (CKD) >90 (>60 ml/min/1.73 sqM); Albumin 3.3 g/dL (3.5-5.0); Alkaline Phosphatase 73 U/L (38-126); Anion Gap 5 mmol/L; Blood Urea Nitrogen 14 mg/dL (7-17); Calcium 8.6 mg/dL (8.4-10.2); Carbon Dioxide 28 mmol/L (22-30); Chloride 105 mmol/L (98-107); Glucose 87 mg/dL (74-99); HCG,Qualitative Serum Not Detected; Non-African American GFR(CKD) >90 (>60 ml/min/1.73 sqM); Sodium 138 mmol/L (137-145); Total Bilirubin 0.2 mg/dL (0.2-1.3); Total Protein 6.2 g/dL (6.3-8.2)
[2019-07-23 04:28] LABS: Potassium 4.2 mmol/L (3.5-5.1)
[2019-07-23] MEDS: HYDROcodone/APAP 10-325MG 1 EACH TAB PO PRN ×3 (06:26→17:07)
[2019-07-23] MEDS: GABAPENTIN 400 MG CAP PO SCH ×2 (08:50→20:50)
[2019-07-23] MEDS: FERROUS SULFATE 325 MG TAB PO SCH ×2 (08:50→20:50)
[2019-07-23] MEDS: DULoxetine HCL 30 MG CAPSULE.DR PO SCH (08:51)
[2019-07-23] MEDS: CYCLOBENZAPRINE 10 MG TAB PO PRN ×2 (08:52→20:52)
[2019-07-23] MEDS: LEVOTHYROXINE 100 MCG TAB PO SCH (08:52)
[2019-07-23] MEDS ORDERED: LEVOTHYROXINE SODIUM 300 MCG PO SCH (09:00)
[2019-07-23] MEDS ORDERED: lamoTRIgine 25 MG TAB PO SCH ×2 (09:00)
[2019-07-23] MEDS ORDERED: DULoxetine HCL 30 MG CAPSULE.DR PO SCH (09:00)
[2019-07-23] MEDS ORDERED: OXcarbazepine 300 MG TAB PO ONE ×2 (10:00)
[2019-07-23] MEDS ORDERED: MAG HYDROX/AL HYDROX/SIMETH 30 ML CUP PO PRN (20:48)
[2019-07-23] MEDS ORDERED: MAGNESIUM HYDROXIDE 2,400 MG/10 ML CUP PO PRN (20:48)
[2019-07-23] MEDS ORDERED: LORazepam 1 MG TAB PO PRN (20:48)
[2019-07-23] MEDS ORDERED: ACETAMINOPHEN TAB 325 MG TAB PO PRN (20:48)
[2019-07-23] MEDS: lamoTRIgine 100 MG TAB PO SCH (20:50)
[2019-07-23] MEDS ORDERED: LORazepam 2 MG/ML INJ IM PRN (20:55)
[2019-07-23] MEDS ORDERED: OXcarbazepine 300 MG TAB PO SCH ×2 (21:00)
[2019-07-23] MEDS ORDERED: CYCLOBENZAPRINE 10 MG TAB PO PRN (21:07)
[2019-07-23] MEDS ORDERED: lamoTRIgine 100 MG TAB PO SCH (21:15)
--- NOTE | 2019-07-23 21:52 | P.CONS ---
History of Present Illness - Reason for Consult Consult date: 07/23/19 Medical management Requesting physician: Homero Kaur - Chief Complaint Depressed - History of Present Illness Consultation: This is a 39-year-old patient of Dr. Yarelis Marrufo. Chronic stable medical conditions include seizure disorder, hypothyroid, herniated disc, overactive bladder, ureter irritable bowel syndrome, fibromyalgia. Patient presents with anxiety depression. Unable to feel controlled. Appetite is okay. No fever no chills. Patient is a smoker. Okay does marijuana. Presented to ER was admitted to [facility] psychiatry unit. Patient appetite has been okay Review of systems: GEN.: Anxious EYES: None HEENT: None NECK: None RESPIRATORY: None CARDIOVASCULAR: None GASTROINTESTINAL: Change in bowel habits GENITOURINARY: Overactive bladder MUSCULOSKELETAL: Aches and pains in multiple joints LYMPHATICS: None HEMATOLOGICAL: None PSYCHIATRY: Anxious and depressed NEUROLOGICAL: None Past medical history to include: Seizure disorder, hypothyroid, bipolar, herniated disc, overactive bladder, irritable bowel syndrome, fibromyalgia. Social history: Smokes about a pack a day, marijuana occasionally, has 2 daughters aged 22 and 6. Lives with her fianc. He works as a caregiver Family history: Diabetes Physical examination: VITAL SIGNS: 97.8, 95, 16, 138/91 100% room air GENERAL: BMI 32.9, sitting up in a chair but anxious. EYES: Pupils equal. Conjunctiva normal. HEENT: External appearance of nose and ears normal, oral cavity grossly normal. NECK: JVD not raised; masses not palpable. HEART: First and second heart sounds are normal; no edema. LUNGS: Respiratory rate normal; clear to auscultation. ABDOMEN: Soft, nontender, liver spleen not palpable, no masses palpable. PSYCH: Alert and oriented x3; mood and affect anxiousl. NEUROLOGICAL: Cranial nerves grossly intact; no facial asymmetry, power and sensation grossly intact. LYMPHATICS: No lymph nodes palpable in the axilla and neck INVESTIGATIONS, reviewed in the clinical context: White count 4.7 hemoglobin 13 potassium 4.2 creatinine 0.51 Urine hCG negative Assessment: -Bipolar disorder -Seizure disorder with epilepsy -Hypothyroid -Overactive bladder -irritable bowel syndrome -Chronic fibromyalgia -Chronic nicotine dependence patient cigarette smoker -Occasional marijuana use Plan: Patient's home medications were resumed. Patient counseled against smoking. We'll give nicotine patch. Patient is awaiting to see the psychiatrist. Care was discussed question were answered Thank you Dr. Kaur Past Medical History Past Medical History: Fibromyalgia, Osteoarthritis (OA), Seizure Disorder, Thyroid Disorder Additional Past Medical History / Comment(s): Seizures, DDD lumbar, heniated d iscs lumbar and cervical, fibromyalgia, IBS, hypothryoidism, migraines, Fx knee 09/2015-healed with brace, L foot fractured a total of 5 times-had surgery with screws placed. 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 Past Anesthesia/Blood Transfusion Reactions: No Reported Reaction Past Psychological History: Anxiety, Bipolar, Depression, Panic Disorder, Schizophrenia Smoking Status: Current every day smoker Past Alcohol Use History: None Reported Past Drug Use History: Marijuana - Past Family History Father Family Medical History: Hypertension Additional Family Medical History / Comment(s): Father is about 53 yrs old and has back problems. Mother Family Medical History: Diabetes Mellitus Additional Family Medical History / Comment(s): Mother is about 53 yrs old Medications and Allergies Home Medications Medication Instructions Recorded Confirmed Type Levothyroxine Sodium [Synthroid] 300 mcg PO DAILY 09/23/14 07/22/19 History Ferrous Sulfate [Feosol] 325 mg PO BID 03/03/17 07/22/19 History lamoTRIgine [LaMICtal] 200 mg PO HS 03/27/17 07/22/19 History lamoTRIgine [LaMICtal] 50 mg PO DAILY #30 tab 03/29/17 07/22/19 Rx OXcarbazepine [Trileptal] 300 mg PO BID 07/09/17 07/22/19 History OXcarbazepine [Trileptal] 600 mg PO BID 07/09/17 07/22/19 History DULoxetine HCL [Cymbalta] 90 mg PO DAILY 12/14/17 07/22/19 History Cyclobenzaprine [Flexeril] 10 mg PO TID PRN 07/22/19 07/22/19 History Gabapentin [Neurontin] 800 mg PO TID 07/22/19 07/22/19 History HYDROcodone/APAP 10-325MG [[place] 1 tab PO QID PRN 07/22/19 07/22/19 History 10-325] Allergies Allergy/AdvReac Type Severity Reaction Status Date / Time ciprofloxacin [From Cipro] Allergy Unknown Rash/Hives Verified 07/22/19 18:06 morphine Allergy Unknown Anaphylaxis Verified 07/22/19 18:06 nitrofurantoin Allergy Unknown Rash/Hives Verified 07/22/19 18:06 [From Macrobid] nitrofurantoin Allergy Unknown Rash/Hives Verified 07/22/19 18:06 macrocrystalline [From Macrobid] sulfamethoxazole Allergy Unknown Rash/Hives Verified 07/22/19 18:06 [From Bactrim] trimethoprim [From Bactrim] Allergy Unknown Rash/Hives Verified 07/22/19 18:06 adhesive tape Allergy Rash/Hives Verified 07/22/19 18:06 alcohol Allergy Rash/Hives Verified 07/22/19 18:06 [From Mastisol Adhesive] gum mastic Allergy Rash/Hives Verified 07/22/19 18:06 [From Mastisol Adhesive] methyl salicylate Allergy Rash/Hives Verified 07/22/19 18:06 [From Mastisol Adhesive] storax Allergy Rash/Hives Verified 07/22/19 18:06 [From Mastisol Adhesive] tramadol [From Ultram] AdvReac Seizures Verified 07/22/19 18:06 PAPER TAPE Allergy PEELS Uncoded 07/22/19 17:51 SKIN,RASH STERI STRIPS Allergy RASH, Uncoded 07/22/19 17:51 PEELS SKIN Physical Exam Vitals: Vital Signs Temp Pulse Pulse Resp BP BP Pulse Ox 07/23/19 18:44 97.8 F 95 16 138/91 07/23/19 17:09 94 16 125/87 100 07/23/19 10:54 93 18 116/83 96 07/23/19 06:28 98.6 F 87 18 119/87 96 07/23/19 01:41 110 H 16 07/23/19 01:35 117 H 16 Results CBC & Chem 7: 07/23/19 03:55 07/23/19 03:55 Labs: Abnormal Lab Results - Last 24 Hours (Table) 07/23/19 07/23/19 Range/Units 03:55 03:55 Plt Count 144 L (150-450) k/uL Creatinine 0.51 L (0.52-1.04) mg/dL Total Protein 6.2 L (6.3-8.2) g/dL Albumin 3.3 L (3.5-5.0) g/dL
[2019-07-23] MEDS ORDERED: GABAPENTIN 400 MG CAP PO SCH (22:00)
[2019-07-24 06:59] VITALS: RESP 18
[2019-07-24] MEDS: NICOTINE 14MG/24HR PATCH TRANSDERM SCH (08:31)
[2019-07-24] MEDS: GABAPENTIN 400 MG CAP PO SCH ×4 (08:31→21:00)
[2019-07-24] MEDS: LEVOTHYROXINE 100 MCG TAB PO SCH (08:31)
[2019-07-24] MEDS: OXcarbazepine 300 MG TAB PO SCH ×2 (08:32→21:00)
[2019-07-24] MEDS: FERROUS SULFATE 325 MG TAB PO SCH ×2 (08:33→21:00)
[2019-07-24] MEDS: lamoTRIgine 25 MG TAB PO SCH (08:33)
[2019-07-24] MEDS ORDERED: DULoxetine HCL 60 MG CAPSULE.DR PO SCH (09:00)
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
[2019-07-24] MEDS: DULoxetine HCL 30 MG CAPSULE.DR PO SCH (09:54)
[2019-07-24] MEDS: HYDROcodone/APAP 5-325MG 1 EACH TAB PO PRN ×2 (09:56→16:56)
[2019-07-24 14:08] LABS: Hemoglobin A1C 4.9 % (4.0-6.0)
[2019-07-24] MEDS: CYCLOBENZAPRINE 10 MG TAB PO PRN (18:03)
[2019-07-24] MEDS ORDERED: lamoTRIgine 100 MG TAB PO SCH (21:00)
[2019-07-24] MEDS ORDERED: PALIPERIDONE 3 MG TAB.ER.24 PO SCH (21:00)
[2019-07-25] MEDS: LEVOTHYROXINE 100 MCG TAB PO SCH (05:16)
[2019-07-25] MEDS: CYCLOBENZAPRINE 10 MG TAB PO PRN ×2 (05:16→08:39)
[2019-07-25 06:40] VITALS: BP 119/80; PULSE 92; TEMP 98
[2019-07-25] MEDS: NICOTINE 14MG/24HR PATCH TRANSDERM SCH (08:37)
[2019-07-25] MEDS: FERROUS SULFATE 325 MG TAB PO SCH (08:38)
[2019-07-25] MEDS: lamoTRIgine 25 MG TAB PO SCH (08:38)
[2019-07-25] MEDS: OXcarbazepine 300 MG TAB PO SCH (08:38)
[2019-07-25] MEDS: DULoxetine HCL 30 MG CAPSULE.DR PO SCH (08:38)
[2019-07-25] MEDS: GABAPENTIN 400 MG CAP PO SCH (08:38)
[2019-07-25] MEDS: HYDROcodone/APAP 5-325MG 1 EACH TAB PO PRN (08:39)
--- NOTE | 2019-07-25 11:25 | P.DS ---
Providers Date of admission: 07/23/19 18:15 Expected date of discharge: 07/25/19 Attending physician: Homero Kaur Primary care physician: Jason Marrufo - Discharge Diagnosis(es) (1) Major depressive disorder, recurrent, severe with psychotic features Current Visit: Yes Status: Acute Priority: High (2) Alcohol use disorder Current Visit: Yes Status: Acute Priority: High Hospital Course: Brief summary of admission note: This patient is a 39-year-old [place] female who was admitted to the mental health unit through the emergency room for suicidal ideation. The patient's stated that she attempted suicide by superfic ially cutting her wrist and abdomen while intoxicated with alcohol. She reported that she had been off of her psychotropic medication and had been struggling with mood symptoms for several months. She was more tearful energy was low appetite was poor sleep was poor. She described experiencing auditory hallucinations prior to the admission and stated that those have been present for most of her life. For full details please refer to my psychiatric evaluation dated 07/24/2019. Summary of hospital course: The patient was admitted to the mental health unit voluntarily. We reviewed her presenting symptoms and treatment options. We decided to increase her Cymbalta to 90 mg daily as she had previously had success with that medication at that dose. Additionally we restarted her invega 3 mg at bedtime. He feels that that medication helps her depression resolves any auditory hallucinations and provides mood stability. She was seen by internal medicine for routine history and physical exam. Social work met with the patient to complete a psychosocial assessment for discharge planning purposes. The patient has a support meeting involving her fianc this afternoon. The patient reported a quick resolution of symptoms while here on the mental health unit. We reviewed her psychotropic medications her questions were answered she's comfortable continuing those. She demonstrates some insight in spontaneously saying she should not engage in any further use of alcohol and that she needs to remain compliant with community mental health treatment. She describes a variety of spontaneous future oriented thoughts most of which pertained to participating in activities with family. Mental status exam: The patient is an overweight female appearing her stated age she is dressed in her own clothing. Eye contact is appropriate speech is fluent spontaneous nonpressured. She indicates her mood is much improved she is reporting no hopelessness thinking she is reporting no suicidal ideation intent or plan. She reports no homicidal ideation intent or plan. She reports no auditory or visual hallucinations today she is reporting no specific delusions and there is no observed evidence of psychosis. She demonstrates no tangential thinking, loose associations or flight of ideas. She does not appear hypomanic or manic. Insight and judgment have improved. She is oriented to person place and date. Affect is euthymic. Speech is fluent spontaneous nonpressured. Impressions 1. Major depressive disorder recurrent severe with psychosis, alcohol use disorder 2. Contributing comorbidities include hypothyroidism, chronic pain, seizure disorder Plan: The patient will be discharged from the mental health unit today following a successful support meeting involving her fianc. She will continue on Cymbalta 90 mg daily and invega 3 mg at bedtime. She is instructed to abstain from any use of alcohol and marijuana or any illicit drugs. We discussed that the substances will provoke mood symptoms and elevate her safety risk. She does not wish to participate in inpatient chemical dependency treatment doesn't feel that she needs any medication prescribed to curtail her alcohol use. Social work will arrange her follow-up for outpatient mental healthcare. At this time there is no imminent safety risk she is appropriate for transition to outpatient care. She is instructed to return to the hospital for any acute safety concerns. Patient Condition at Discharge: Stable Plan - Discharge Summary New Discharge Prescriptions: New Nicotine 14Mg/24Hr Patch [Habitrol] 1 patch TRANSDERM DAILY #14 patch Paliperidone [Invega] 3 mg PO HS #30 tab.er.24 Continue Levothyroxine Sodium [Synthroid] 300 mcg PO DAILY Ferrous Sulfate [Feosol] 325 mg PO BID lamoTRIgine [LaMICtal] 200 mg PO HS lamoTRIgine [LaMICtal] 50 mg PO DAILY #30 tab OXcarbazepine [Trileptal] 600 mg PO BID OXcarbazepine [Trileptal] 300 mg PO BID HYDROcodone/APAP 10-325MG [[place] 10-325] 1 tab PO QID PRN PRN Reason: Pain Gabapentin [Neurontin] 800 mg PO TID Cyclobenzaprine [Flexeril] 10 mg PO TID PRN PRN Reason: Muscle Spasm DULoxetine HCL [Cymbalta] 90 mg PO DAILY #45 cap Discharge Medication List Levothyroxine Sodium [Synthroid] 300 mcg PO DAILY 09/23/14 [History] Ferrous Sulfate [Feosol] 325 mg PO BID 03/03/17 [History] lamoTRIgine [LaMICtal] 200 mg PO HS 03/27/17 [History] lamoTRIgine [LaMICtal] 50 mg PO DAILY #30 tab 03/29/17 [Rx] OXcarbazepine [Trileptal] 300 mg PO BID 07/09/17 [History] OXcarbazepine [Trileptal] 600 mg PO BID 07/09/17 [History] Cyclobenzaprine [Flexeril] 10 mg PO TID PRN 07/22/19 [History] Gabapentin [Neurontin] 800 mg PO TID 07/22/19 [History] HYDROcodone/APAP 10-325MG [[place] 10-325] 1 tab PO QID PRN 07/22/19 [History] DULoxetine HCL [Cymbalta] 90 mg PO DAILY #45 cap 07/25/19 [Rx] Nicotine 14Mg/24Hr Patch [Habitrol] 1 patch TRANSDERM DAILY #14 patch 07/25/19 [Rx] Paliperidone [Invega] 3 mg PO HS #30 tab.er.24 07/25/19 [Rx] Follow up Appointment(s)/Referral(s): Jason Marrufo DO [Primary Care Provider] - 1-2 days Patient Instructions/Handouts: Depression (ED)
[2019-07-25] MEDS ORDERED: BACITRACIN 500 UNIT/GM OINT 28.4 GM TUBE TOPICAL SCH (11:30)
[2019-07-25] MEDS ORDERED: CEPHALEXIN 250 MG CAP PO SCH (13:00)
== END 2019-07-25 13:11 | disposition home or self-care (01) | DRG 885 ==
LOC: EC 17:46 → 3MHU 07-23 18:15
PROVIDERS: ADMIT Psychiatry & Neurology Psychiatry; ATTEND Psychiatry & Neurology Psychiatry
DX: F33.3 Major depressive disorder, recurrent, severe with psychotic symptoms (principal); R45.851 Suicidal ideations; E03.9 Hypothyroidism, unspecified; F10.10 Alcohol abuse, uncomplicated; E66.3 Overweight; Z68.32 Body mass index [BMI] 32.0-32.9, adult; F17.210 Nicotine dependence, cigarettes, uncomplicated; F41.0 Panic disorder [episodic paroxysmal anxiety]; F41.8 Other specified anxiety disorders; G40.909 Epilepsy, unspecified, not intractable, without status epilepticus; G89.29 Other chronic pain; K58.9 Irritable bowel syndrome, unspecified; M79.7 Fibromyalgia; N32.81 Overactive bladder; Z62.810 Personal history of physical and sexual abuse in childhood; Z79.890 Hormone replacement therapy; Z79.899 Other long term (current) drug therapy; Z82.49 Family history of ischemic heart disease and other diseases of the circulatory system; Z83.3 Family history of diabetes mellitus; Z91.410 Personal history of adult physical and sexual abuse; Z98.84 Bariatric surgery status; Z88.1 Allergy status to other antibiotic agents; Z88.5 Allergy status to narcotic agent; Z88.2 Allergy status to sulfonamides; Z88.8 Allergy status to other drugs, medicaments and biological substances
CPT/HCPCS: 36415; 80053; 80061; 80183; 82075; 83036; 84443; 84703; 85025; 94640; 99285

== ENCOUNTER 2019-07-30 13:44 | Emergency (ER) | payer OTHER ==
[2019-07-30 14:12] VITALS: BP 102/68; PULSE 85; RESP 18; TEMP 97.9
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
[2019-07-30] MEDS ORDERED: HYDROcodone/APAP 5-325MG 1 EACH TAB PO STA (15:16)
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
== END 2019-07-30 15:57 | disposition home or self-care (01) ==
LOC: EC 13:44
DX: S62.396A Other fracture of fifth metacarpal bone, right hand, initial encounter for closed fracture (principal); S20.211A Contusion of right front wall of thorax, initial encounter; S00.33XA Contusion of nose, initial encounter; T74.11XA Adult physical abuse, confirmed, initial encounter; M79.642 Pain in left hand; F17.200 Nicotine dependence, unspecified, uncomplicated; M19.90 Unspecified osteoarthritis, unspecified site; G40.909 Epilepsy, unspecified, not intractable, without status epilepticus; M79.7 Fibromyalgia; E03.9 Hypothyroidism, unspecified; F41.9 Anxiety disorder, unspecified; F31.9 Bipolar disorder, unspecified; Z79.890 Hormone replacement therapy; Z79.899 Other long term (current) drug therapy; Z88.1 Allergy status to other antibiotic agents; Z88.2 Allergy status to sulfonamides; Z91.048 Other nonmedicinal substance allergy status; Z88.5 Allergy status to narcotic agent; Z88.8 Allergy status to other drugs, medicaments and biological substances; Z88.6 Allergy status to analgesic agent; Z98.84 Bariatric surgery status; Y07.499 Other family member, perpetrator of maltreatment and neglect
CPT/HCPCS: 29125; 99284

== ENCOUNTER 2020-01-04 11:44 | Emergency (ER) | payer OTHER ==
--- NOTE | 2020-01-04 12:11 | ED ---
ENT HPI - General Chief complaint: ENT Stated complaint: Mouth sores Time Seen by Provider: 01/04/20 11:52 Source: patient Mode of arrival: ambulatory Limitations: no limitations - History of Present Illness Initial comments: Patient is a 39-year-old female presents emergency Department with a chief complaint of sores a month. Patient states she initially developed sores on the inside of the lower lip. The sores have increasing severity According to the patient. Patient states using saltwater rinses with minimal improvement in symptoms. Does also report a sore throat. Denies any facial swelling or erythema. Patient also reports some right-sided ear pain is not exacerbated with traction of the auricle. Denies any changes in hearing. - Related Data Home Medications Medication Instructions Recorded Confirmed Levothyroxine Sodium [Synthroid] 300 mcg PO DAILY 09/23/14 07/22/19 Ferrous Sulfate [Feosol] 325 mg PO BID 03/03/17 07/22/19 lamoTRIgine [LaMICtal] 200 mg PO HS 03/27/17 07/22/19 OXcarbazepine [Trileptal] 300 mg PO BID 07/09/17 07/22/19 OXcarbazepine [Trileptal] 600 mg PO BID 07/09/17 07/22/19 Cyclobenzaprine [Flexeril] 10 mg PO TID PRN 07/22/19 07/22/19 Gabapentin [Neurontin] 800 mg PO TID 07/22/19 07/22/19 HYDROcodone/APAP 10-325MG [[place] 1 tab PO QID PRN 07/22/19 07/22/19 10-325] Previous Rx's Medication Instructions Recorded lamoTRIgine [LaMICtal] 50 mg PO DAILY #30 tab 03/29/17 DULoxetine HCL [Cymbalta] 90 mg PO DAILY #45 cap 07/25/19 Nicotine 14Mg/24Hr Patch [Habitrol] 1 patch TRANSDERM DAILY #14 patch 07/25/19 Paliperidone [Invega] 3 mg PO HS #30 tab.er.24 07/25/19 valACYclovir HCL [Valtrex] 1,000 mg PO BID #4 tablet 01/04/20 Allergies Allergy/AdvReac Type Severity Reaction Status Date / Time ciprofloxacin [From Cipro] Allergy Unknown Rash/Hives Verified 01/04/20 11:49 morphine Allergy Unknown Anaphylaxis Verified 01/04/20 11:49 nitrofurantoin Allergy Unknown Rash/Hives Verified 01/04/20 11:49 [From Macrobid] nitrofurantoin Allergy Unknown Rash/Hives Verified 01/04/20 11:49 macrocrystalline [From Macrobid] sulfamethoxazole Allergy Unknown Rash/Hives Verified 01/04/20 11:49 [From Bactrim] trimethoprim [From Bactrim] Allergy Unknown Rash/Hives Verified 01/04/20 11:49 adhesive tape Allergy Rash/Hives Verified 01/04/20 11:49 alcohol Allergy Rash/Hives Verified 01/04/20 11:49 [From Mastisol Adhesive] gum mastic Allergy Rash/Hives Verified 01/04/20 11:49 [From Mastisol Adhesive] methyl salicylate Allergy Rash/Hives Verified 01/04/20 11:49 [From Mastisol Adhesive] storax Allergy Rash/Hives Verified 01/04/20 11:49 [From Mastisol Adhesive] topiramate [From Topamax] Allergy Rash/Hives Verified 01/04/20 11:49 tramadol [From Ultram] AdvReac Seizures Verified 01/04/20 11:49 PAPER TAPE Allergy PEELS Uncoded 01/04/20 11:49 SKIN,RASH STERI STRIPS Allergy RASH, Uncoded 01/04/20 11:49 PEELS SKIN Review of Systems ROS Statement: Those systems with pertinent positive or pertinent negative responses have been documented in the HPI. ROS Other: All systems not noted in ROS Statement are negative. Past Medical History Past Medical History: Fibromyalgia, Osteoarthritis (OA), Seizure Disorder, Thyroid Disorder Additional Past Medical History / Comment(s): Seizures, DDD lumbar, heniated discs lumbar and cervical, fibromyalgia, IBS, hypothryoidism, migraines, Fx knee 09/2015-healed with brace, L foot fractured a total of 5 times-had surgery with screws placed. 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 Past Anesthesia/Blood Transfusion Reactions: No Reported Reaction Past Psychological History: Anxiety, Bipolar, Depression, Panic Disorder, Schizophrenia Smoking Status: Current every day smoker Past Alcohol Use History: None Reported Past Drug Use History: Marijuana - Past Family History Father Family Medical History: Hypertension Additional Family Medical History / Comment(s): Father is about 53 yrs old and has back problems. Mother Family Medical History: Diabetes Mellitus Additional Family Medical History / Comment(s): Mother is about 53 yrs old General Exam Limitations: no limitations General appearance: alert, in no apparent distress Head exam: Present: atraumatic, normocephalic, normal inspection Eye exam: Present: normal appearance, PERRL, EOMI Pupils: Present: normal accommodation ENT exam: Present: normal exam, mucous membranes moist, TM's normal bilaterally, normal external ear exam. Absent: normal oropharynx (Multiple herpetic-like lesions throughout the oral cavity. Uvula midline. No tonsillar erythema or exudates.) Neck exam: Present: normal inspection, full ROM, lymphadenopathy Respiratory exam: Present: normal lung sounds bilaterally Cardiovascular Exam: Present: regular rate, normal rhythm, normal heart sounds Extremities exam: Present: normal inspection, full ROM Back exam: Present: normal inspection, full ROM Neurological exam: Present: alert Psychiatric exam: Present: normal affect, normal mood Skin exam: Present: warm, dry, intact, normal color Course Vital Signs 01/04/20 01/04/20 11:44 12:22 Temperature 98.2 F Pulse Rate 85 Respiratory 18 16 Rate Blood Pressure 123/81 O2 Sat by Pulse 98 Oximetry Medical Decision Making - Medical Decision Making patient is a 39-year-old female presenting to emergency Department with a chief complaint of sores in the mouth. Based on physical examination patient appears to have multiple herpetic lesions throughout the oral cavity. Tonsils are nonerythematous with no exudates. Uvula midline. This appears to be herpetic in nature, either herpangina or herpetic gingivostomatitis. Patient given Toradol and ED for pain. Patient advised to use Magic mouthwash to alleviate some of the discomfort. Patient also be started on a 2 day course of antivirals. Patient advised D antiviral therapy might provide minimal improvement of symptoms. No facial swelling. She does have a lymphadenopathy. Return parameters were thoroughly discussed with patient is understanding and agreeable. Patient denies follow primary care. Case discussed with physician. Disposition Clinical Impression: Herpetic gingivostomatitis Disposition: HOME SELF-CARE Condition: Stable Instructions (If sedation given, give patient instructions): Gingivostomatitis (ED) Additional Instructions: Take prescribed medication as directed. Use Magic mouthwash to help with symptoms. Return to emergency department if symptoms worsen. Prescriptions: valACYclovir HCL [Valtrex] 1,000 mg PO BID #4 tablet Is patient prescribed a controlled substance at d/c from ED?: No Referrals: Jason Marrufo DO [Primary Care Provider] - 1-2 days Time of Disposition: 13:04
[2020-01-04 12:23] VITALS: RESP 16
[2020-01-04] MEDS ORDERED: KETOROLAC 30 MG/ML 1 ML VIAL IM STA (12:50)
[2020-01-04 13:19] VITALS: BP 124/88; PULSE 77; TEMP 97.9
== END 2020-01-04 13:15 | disposition home or self-care (01) ==
LOC: EC 11:44
DX: B00.2 Herpesviral gingivostomatitis and pharyngotonsillitis (principal); H92.01 Otalgia, right ear; M79.7 Fibromyalgia; M19.90 Unspecified osteoarthritis, unspecified site; G40.909 Epilepsy, unspecified, not intractable, without status epilepticus; E03.9 Hypothyroidism, unspecified; F31.9 Bipolar disorder, unspecified; F41.9 Anxiety disorder, unspecified; F17.200 Nicotine dependence, unspecified, uncomplicated; Z88.1 Allergy status to other antibiotic agents; Z88.2 Allergy status to sulfonamides; Z88.5 Allergy status to narcotic agent; Z88.8 Allergy status to other drugs, medicaments and biological substances; Z91.048 Other nonmedicinal substance allergy status; Z79.890 Hormone replacement therapy; Z79.891 Long term (current) use of opiate analgesic; Z79.899 Other long term (current) drug therapy; Z86.69 Personal history of other diseases of the nervous system and sense organs; Z96.698 Presence of other orthopedic joint implants
CPT/HCPCS: 99282; 96372; J1885

== ENCOUNTER 2021-12-18 22:36 | Emergency (ER) | payer OTHER ==
[2021-12-18 22:48] VITALS: BP 118/82; PULSE 74; RESP 19; TEMP 98
[2021-12-18] MEDS ORDERED: HYDROcodone/APAP 5-325MG 1 EACH TAB PO STA (22:51)
--- NOTE | 2021-12-18 23:05 | XR ---
EXAMINATION TYPE: XR shoulder complete LT DATE OF EXAM: 12/18/2021 COMPARISON: NONE HISTORY: Shoulder pain TECHNIQUE: 3 views FINDINGS: There is no fracture nor dislocation. Joint spaces are normal. There are no pathologic calc ifications. IMPRESSION: Negative left shoulder exam. No fracture.
[2021-12-18] MEDS ORDERED: traMADol 50 MG STARTER PACK 3 TAB BTL PO STA (23:33)
--- NOTE | 2021-12-18 23:33 | ED ---
Upper Extremity HPI - General Chief Complaint: Extremity Injury, Upper Stated Complaint: Fall, L shoulder injury Time Seen by Provider: 12/18/21 22:45 Source: patient Mode of arrival: ambulatory - History of Present Illness Initial Comments: This patient is a 41-year-old woman who presents for evaluation of left arm injury. She states that tonight she had been spreading salt on ice and she did not see a patch of ice in the dark. She slipped and fell landing on lateral aspect of left arm and left knee. She states that the knee pain has improved markedly and she is able to walk on it, but the left shoulder is still causing a lot of pain anytime she moves her arm. She denies weakness or numbness distal to the injury. She indicates the left arm just below the shoulder joint. MD Complaint: Injury to:: left, shoulder Onset/Timin -: hour(s) Other Extremity Injury: Shoulder: Left Other Injuries: LLE Handedness: right Place: outdoors Improves With: immobilization Worsens With: movement of extremity Context: fall Associated Symptoms: denies other symptoms Treatments Prior to Arrival: NSAIDS - Related Data Home Medications Medication Instructions Recorded Confirmed Levothyroxine Sodium [Synthroid] 300 mcg PO DAILY 09/23/14 07/22/19 Ferrous Sulfate [Feosol] 325 mg PO BID 03/03/17 07/22/19 lamoTRIgine [LaMICtal] 200 mg PO HS 03/27/17 07/22/19 OXcarbazepine [Trileptal] 300 mg PO BID 07/09/17 07/22/19 OXcarbazepine [Trileptal] 600 mg PO BID 07/09/17 07/22/19 Cyclobenzaprine [Flexeril] 10 mg PO TID PRN 07/22/19 07/22/19 Gabapentin [Neurontin] 800 mg PO TID 07/22/19 07/22/19 HYDROcodone/APAP 10-325MG [[place] 1 tab PO QID PRN 07/22/19 07/22/19 10-325] Previous Rx's Medication Instructions Recorded lamoTRIgine [LaMICtal] 50 mg PO DAILY #30 tab 03/29/17 DULoxetine HCL [Cymbalta] 90 mg PO DAILY #45 cap 07/25/19 Nicotine 14Mg/24Hr Patch [Habitrol] 1 patch TRANSDERM DAILY #14 patch 07/25/19 Paliperidone [Invega] 3 mg PO HS #30 tab.er.24 07/25/19 valACYclovir HCL [Valtrex] 1,000 mg PO BID #4 tablet 01/04/20 Allergies Allergy/AdvReac Type Severity Reaction Status Date / Time ciprofloxacin [From Cipro] Allergy Unknown Rash/Hives Verified 11/25/21 01:18 morphine Allergy Unknown Anaphylaxis Verified 11/25/21 01:18 nitrofurantoin Allergy Unknown Rash/Hives Verified 11/25/21 01:18 [From Macrobid] nitrofurantoin Allergy Unknown Rash/Hives Verified 11/25/21 01:18 macrocrystalline [From Macrobid] sulfamethoxazole Allergy Unknown Rash/Hives Verified 11/25/21 01:18 [From Bactrim] trimethoprim [From Bactrim] Allergy Unknown Rash/Hives Verified 11/25/21 01:18 adhesive tape Allergy Rash/Hives Verified 11/25/21 01:18 alcohol Allergy Rash/Hives Verified 11/25/21 01:18 [From Mastisol Adhesive] gum mastic Allergy Rash/Hives Verified 11/25/21 01:18 [From Mastisol Adhesive] methyl salicylate Allergy Rash/Hives Verified 11/25/21 01:18 [From Mastisol Adhesive] storax Allergy Rash/Hives Verified 11/25/21 01:18 [From Mastisol Adhesive] topiramate [From Topamax] Allergy Rash/Hives Verified 11/25/21 01:18 tramadol [From Ultram] AdvReac Seizures Verified 11/25/21 01:18 PAPER TAPE Allergy PEELS Uncoded 11/25/21 01:18 SKIN,RASH STERI STRIPS Allergy RASH, Uncoded 11/25/21 01:18 PEELS SKIN Review of Systems ROS Statement: Those systems with pertinent positive or pertinent negative responses have been documented in the HPI. ROS Other: All systems not noted in ROS Statement are negative. Respiratory: Denies: cough, dyspnea Cardiovascular: Denies: chest pain, syncope Gastrointestinal: Denies: abdominal pain Musculoskeletal: Reports: as per HPI, arthralgia. Denies: back pain Skin: Denies: lesions Neurological: Denies: headache, weakness, numbness, paresthesias Past Medical History Past Medical History: Fibromyalgia, Osteoarthritis (OA), Seizure Disorder, Thyroid Disorder Additional Past Medical History / Comment(s): Seizures, DDD lumbar, heniated discs lumbar and cervical, fibromyalgia, IBS, hypothryoidism, migraines, Fx knee 09/2015-healed with brace, L foot fractured a total of 5 times-had surgery with screws placed. 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 Past Anesthesia/Blood Transfusion Reactions: No Reported Reaction Past Psychological History: Anxiety, Bipolar, Depression, Panic Disorder, Schizophrenia Smoking Status: Current every day smoker Past Alcohol Use History: None Reported Past Drug Use History: Marijuana - Past Family History Father Family Medical History: Hypertension Additional Family Medical History / Comment(s): Father is about 53 yrs old and has back problems. Mother Family Medical History: Diabetes Mellitus Additional Family Medical History / Comment(s): Mother is about 53 yrs old General Exam General appearance: alert, in no apparent distress Head exam: Present: atraumatic, normocephalic Eye exam: Present: normal appearance Neck exam: Present: normal inspection, full ROM. Absent: tenderness Respiratory exam: Present: normal lung sounds bilaterally. Absent: respiratory distress, wheezes, rales, rhonchi, stridor, chest wall tenderness Cardiovascular Exam: Present: regular rate, normal rhythm, normal heart sounds. Absent: systolic murmur, diastolic murmur, rubs, gallop GI/Abdominal exam: Present: soft. Absent: tenderness, guarding, rebound Extremities exam: Present: normal inspection, tenderness Left Shoulder Exam: Present: tenderness. Absent: full ROM, swelling, abrasion, laceration, ecchymosis, deformity, crepitus, dislocation, erythema, tenderness over AC joint Upper Arm exam: Present: tenderness. Absent: swelling, abrasion, laceration, ecchymosis, deformity Elbow exam: Present: normal inspection, full ROM. Absent: tenderness, swelling, abrasion Forearm Wrist exam: Present: normal inspection, full ROM. Absent: tenderness, swelling Hand Wrist exam: Present: normal inspection, full ROM. Absent: tenderness, swelling Neuro motor exam: Present: wrist extension intact, thumb opposition intact, thumb IP flexion intact, thumb adduction intact, fingers 2-5 abduction intact Neurosensory exam: Present: 2-point discrimination, radial nerve intact, ulnar nerve intact, median nerve intact Vascular: Present: normal capillary refill. Absent: vascular compromise, pulse deficit radial art, pulse deficit ulnar art, pulse deficit brachial art Back exam: Present: normal inspection. Absent: vertebral tenderness Neurological exam: Present: alert. Absent: motor sensory deficit Skin exam: Present: warm, dry, intact, normal color. Absent: rash Course Vital Signs 12/18/21 22:43 Temperature 98 F Pulse Rate 74 Respiratory 19 Rate Blood Pressure 118/82 O2 Sat by Pulse 98 Oximetry Disposition Clinical Impression: Injury of shoulder, left Disposition: HOME SELF-CARE Condition: Good Instructions (If sedation given, give patient instructions): Shoulder Sprain (ED) Is patient prescribed a controlled substance at d/c from ED?: No Referrals: None,Stated [Primary Care Provider] - 1-2 days
[2021-12-18] MEDS ORDERED: ACET/COD 300 MG/30 MG STARTER PACK 6 TAB BTL PO STA (23:58)
== END 2021-12-19 00:03 | disposition home or self-care (01) ==
LOC: EC 22:36
DX: S49.92XA Unspecified injury of left shoulder and upper arm, initial encounter (principal); G40.909 Epilepsy, unspecified, not intractable, without status epilepticus; M19.90 Unspecified osteoarthritis, unspecified site; M79.7 Fibromyalgia; E03.9 Hypothyroidism, unspecified; F31.9 Bipolar disorder, unspecified; F41.9 Anxiety disorder, unspecified; F20.9 Schizophrenia, unspecified; F17.200 Nicotine dependence, unspecified, uncomplicated; F12.90 Cannabis use, unspecified, uncomplicated; Z79.890 Hormone replacement therapy; Z79.899 Other long term (current) drug therapy; Z88.1 Allergy status to other antibiotic agents; Z88.2 Allergy status to sulfonamides; W01.0XXA Fall on same level from slipping, tripping and stumbling without subsequent striking against object, initial encounter
CPT/HCPCS: 99284